=== PATIENT | female | born 1985 | race Caucasian/White ===

== ENCOUNTER 2016-06-19 13:06 | Emergency (ER) | payer MEDICAID, OTHER ==
[~2016-06-19] VITALS: Ht 172.7 cm; Wt 111.1 kg
[~2016-06-19 13:06] MED LIST: ALPR.5T PO; AMIT25TA9 PO; BPR100T PO; BUPR100T15 PO; CETI10CA PO; CITA10TA12 PO; DIAZ5TAB PO; FLUT1DIS28 IH; METF500T4 PO; MONT10TA21 PO; PANT40SU PO; PRO AIR; QUET50TA49 PO; RT-ALBUINH IH
[2016-06-19] MEDS ORDERED: TRIM/SULFAMETH 160/800 (SEPTRA DS) TAB PO ONE (13:30)
[2016-06-19] MEDS ORDERED: HYDROcodone/APAP 5 MG/325 MG (LORTAB) TAB PO ONE (13:30)
[2016-06-19] MEDS ORDERED: LIDOCAINE 2% 20 ML (XYLOCAINE) VIAL INJ ONE (13:30)
--- NOTE | 2016-06-19 13:30 | ED Lower Extremity ---
General Stated Complaint: RIGHT BIG TOE INFECTED Source: patient Exam Limitations: no limitations History of Present Illness Time seen by provider: 13:29 Initial Comments To ER with right great toe redness swelling and pain for the past 4 weeks. She saw her primary care provider at [facility] who started her on cephalexin which she finished 3 days ago. Still no improvement in the toe pain and redness. Onset: other Severity: moderate Method of Injury: unknown Modifying Factors: Worse With Movement Allergies and Home Medications Allergies Coded Allergies: Penicillins (Unverified Allergy, Unknown, 09/28/11) Home Medications (Reported) Albuterol Sulfate 6.7 Gm Hfa.aer.ad 6.7 GM IH (Reported) Alprazolam 0.5 Mg Tablet 1 TAB PO PRN (Reported) Amitriptyline HCl 25 Mg Tablet 25 MG PO HS (Reported) Bupropion HCl 100 Mg Tablet 100 MG PO DAILY (Reported) Bupropion Hcl 100 Mg Tab 150 MG PO BID (Reported) Cetirizine HCl 10 Mg Capsule 10 MG PO (Reported) Citalopram Hydrobromide 10 Mg Tablet 10 MG PO HS (Reported) Diazepam 5 Mg Tablet 5 MG PO (Reported) Fluticasone/Salmeterol 1 Each Blst.w.dev 1 EACH IH (Reported) Metformin HCl 500 Mg Tablet 500 MG PO (Reported) Montelukast Sodium 10 Mg Tablet 10 MG PO (Reported) Pantoprazole Sodium 40 Mg Granpkt.dr 40 MG PO DAILY (Reported) Quetiapine Fumarate 50 Mg Tab.er.24h 50 MG PO HS (Reported) Constitutional: see HPINo chills, No fever EENTM: see HPI Respiratory: no symptoms reported Cardiovascular: no symptoms reported Genitourinary: no symptoms reported Musculoskeletal: no symptoms reported Skin: see HPI Psychiatric/Neurological: No Symptoms Reported Past Ykhnnyi-Benhar-Qeonyh Hx Patient Social History Recent Foreign Travel: No Contact w/Someone Who Travel: No Surgeries HX Surgeries: Yes Surgeries: Gallbladder, Orthopedic Respiratory Hx Respiratory Disorders: Yes Respiratory Disorders: Asthma Cardiovascular Hx Cardiac Disorders: Yes Cardiac Disorders: Heart Murmur Genitourinary Hx Genitourinary Disorders: No Gastrointestinal Hx Gastrointestinal Disorders: Yes Gastrointestinal Disorders: Gastroesophageal Reflux, Irritable Bowel Endocrine Hx Endocrine Disorders: Yes Endocrine Disorders: Diabetes, Non-Insulin dep Psychosocial Hx Psychiatric Problems: Yes Behavioral Health Disorders: Anxiety, Depression Family Medical History Significant Family History: No Pertinent Family Hx Physical Exam Vital Signs Vital Sign - Last 12Hours 06/19/16 13:25 Temp 98.3 Pulse 74 Resp 16 B/P 124/84 Pulse Ox 98 O2 Delivery Room Air Capillary Refill : General Appearance: WD/WN no apparent distress HEENT: PERRL/EOMI normal ENT inspection Neck: non-tender full range of motion Respiratory: no respiratory distress no accessory muscle use Gastrointestinal: non tender soft Hips: bilateral hip non-tender, bilateral hip normal inspection, bilateral hip normal range of motion Legs: bilateral leg non-tender, bilateral leg normal inspection, bilateral leg normal range of motion Knees: bilateral knee non-tender, bilateral knee normal inspection, bilateral knee normal range of motion Ankles: bilateral ankle non-tender, bilateral ankle normal inspection, bilateral ankle normal range of motion Feet: right foot pain, right foot soft tissue tenderness, right foot other ( swelling and erythema to the lateral aspect of the great toe) Neurologic/Tendon: normal sensation normal motor functions Neurologic/Psychiatric: alert normal mood/affect oriented x 3 Skin: normal color warm/dry Progress Toenail removal. The right great toe was cleaned with alcohol swab and a digital block using 4 mL of 2 percent plain lidocaine without epinephrine. The toe was then scrubbed with Betadine. Blunt needle drivers were then inserted under the lateral aspect of the nail plate all the way back to the nail matrix. The lateral nail edge was lifted from the paronychium . This was then trimmed removing the lateral third of the great toenail. Silver nitrate was then used to cauterize the bleeding paronychium and nail matrix. This was then covered with nonadherent gauze dressing. Progress/Results/Core Measures Results/Orders My Orders Orders-MARY JOYCE APRN Wound Culture (06/19/16 13:28) Sulfamethoxazole/Trimet Ds Tab (Bactrim (06/19/16 13:30) Hydrocodone/Apap 5/325 Tablet (Lortab 5 (06/19/16 13:30) Lidocaine 2% Injection 20 Ml (Xylocaine (06/19/16 13:30) Medications Given in ED Current Medications Medications Dose Ordered Sig/Jered Route Start Time Stop Time Status Last Admin Dose Admin Acetaminophen/ Hydrocodone Bitart 1 tab ONCE ONCE PO 06/19/16 13:30 06/19/16 13:31 DC 06/19/16 13:37 1 TAB Lidocaine HCl 2 ml ONCE ONCE INJ 06/19/16 13:30 06/19/16 13:31 DC 06/19/16 13:37 2 ML Trimethoprim/ Sulfamethoxazole 1 ea ONCE ONCE PO 06/19/16 13:30 06/19/16 13:31 DC 06/19/16 13:36 1 EA Vital Signs/I&O Vital Sign - Last 12Hours 06/19/16 13:25 Temp 98.3 Pulse 74 Resp 16 B/P 124/84 Pulse Ox 98 O2 Delivery Room Air Departure Impression Impression: Primary Impression: Ingrown toenail Disposition: HOME, SELF-CARE Condition: Stable Departure-Patient Inst. Decision time for Depature: 13:56 Referrals: [facility] (PCP/Family) Primary Care Physician Patient Instructions: Ingrown Toenail Removal, Ingrown Toenail (DC) Add. Discharge Instructions: 1. Keep foot elevated for the rest of today. Do not get it wet tonight in the shower. Starting tomorrow you should remove this dressing and change the dressing daily for the next 3 days. You may shower and let water run over this starting tomorrow. Then, thoroughly dry it and reapply the Band-Aid 2. Antibiotics and pain pills as directed Scripts Hydrocodone/Acetaminophen (Erie 5-325 Tablet)1 Each Tablet1 Each PO Q6H PRN PAIN #10 TAB Prov:MARY JOYCE APRN 06/19/16 Sulfamethoxazole/Trimethoprim (Bactrim Ds Tablet)1 Each Tablet1 Each PO BID #10 TAB Prov:MARY JOYCE APRN 06/19/16 MARY JOYCE APRN Jun 19, 2016 13:30
[2016-06-19] MEDS ORDERED: SULF1TAB35 PO (13:58)
[2016-06-19] MEDS ORDERED: HYDR-757 PO (13:58)
[2016-06-19 14:05] VITALS: BP 124/84
== END 2016-06-19 14:05 | disposition home or self-care (01) ==
LOC: EDUNIT# 13:06 → ER 13:08
DX: L60.0 Ingrowing nail (principal); E11.9 Type 2 diabetes mellitus without complications; Z79.899 Other long term (current) drug therapy; Z79.84 Long term (current) use of oral hypoglycemic drugs
CPT/HCPCS: 87070; 87077; 87186; 87205; 99283

== ENCOUNTER 2016-07-05 06:00 | Outpatient (CLI) | payer SELFPAY ==
[~2016-07-05] VITALS: Ht 172.7 cm; Wt 111.1 kg
[~2016-07-05 06:00] MED LIST changes: +HYDR-757 PO; +SULF1TAB35 PO
[2016-07-05] MEDS ORDERED: BUPR300T51 PO (15:02)
[2016-07-05] MEDS ORDERED: RT-ALBUINH IH (15:02)
[2016-07-05] MEDS ORDERED: BISA5TAB49 PO (15:03)
[2016-07-05] MEDS ORDERED: OMEP20CA12 PO (15:03)
[2016-07-05] MEDS ORDERED: MELO7.5T46 PO (15:03)
[2016-07-05] MEDS ORDERED: SERT100T PO (15:03)
[2016-07-05] MEDS ORDERED: DOCU100T7 PO (15:03)
[2016-07-05] MEDS ORDERED: FLUT9.9S NS (15:03)
== END 2016-07-05 15:06 ==
LOC: PREOP 06:00
PROVIDERS: ATTEND Surgery
DX: Z01.818 Encounter for other preprocedural examination (principal); K92.1 Melena; K21.9 Gastro-esophageal reflux disease without esophagitis

== ENCOUNTER 2016-07-10 07:26 | Day surgery (SDC) | payer OTHER ==
[~2016-07-10] VITALS: Ht 172.7 cm; Wt 111.1 kg
[~2016-07-10 07:26] MED LIST changes: +BISA5TAB49 PO; +BUPR300T51 PO; +DOCU100T7 PO; +FLUT9.9S NS; +MELO7.5T46 PO; +OMEP20CA12 PO; +SERT100T PO
[2016-07-10] MEDS ORDERED: NS IV 1000 ML 1,000 ML IV STA (07:32)
[2016-07-10] MEDS ORDERED: NS IV 1000 ML 1,000 ML ONE (07:38)
[2016-07-10] MEDS ORDERED: HURRICAINE EXT TUBE (BENZOCAINE) XX PRN (07:45)
[2016-07-10 07:48] VITALS: BP 123/74
--- NOTE | 2016-07-10 07:59 | Progress Note-Pre Operative ---
Pre-Operative Progress Note H&P Reviewed The H&P was reviewed, patient examined and no changes noted. Date H&P Reviewed: Jul 10, 2016 Time H&P Reviewed: 07:58 Pre-Operative Diagnosis: blood per rectum, anal fissure, gerd MARLEEN MARTINEZ DO Jul 10, 2016 7:59 am
[2016-07-10] MEDS ORDERED: MIDAZOLAM 2 MG/2 ML (VERSED) VIAL ONE ×2 (08:24)
[2016-07-10] MEDS ORDERED: proPOfol 200 MG/20 ML (DIPRIVAN) VIAL IV ONE ×2 (08:24→08:59)
--- NOTE | 2016-07-10 09:22 | Progress Note-Post Operative ---
Post-Operative Progess Note Pre-Operative Diagnosis blood per rectum, anal fissure, gerd Post-Operative Diagnosis gastritis, small hiatal hernia, normal colon Post-Op Procedure Note Date of Procedure: Jul 10, 2016 Name of Procedure: egd c biopsy, colonoscopy Procedure Note/Findings see note Anesthesia Type per supervisor ditching Estimated blood loss (mL): none Specimen(s) collected antrum MARLEEN MARTINEZ DO Jul 10, 2016 9:21 am
[2016-07-10 09:25] VITALS: BP 136/78
--- NOTE | 2016-07-10 09:28 | Discharge Inst-Simple/Standard ---
Discharge Inst-Standard Patient Instructions/Follow Up Plan of Care/Instructions/FU: 2 weeks Activity as Tolerated: Yes Discharge Diet: Regular Diet (high fiber) MARLEEN MARTINEZ DO Jul 10, 2016 9:28 am
[2016-07-10 10:00] VITALS: BP 108/59
[2016-07-10 10:33] VITALS: BP 108/59
--- NOTE | 2016-07-10 10:40 | PROCEDURE REPORT ---
PROCEDURE PHYSICIAN: MARLEEN MARTINEZ DATE OF PROCEDURE: 07/10/2016 PREOPERATIVE DIAGNOSIS: 1. Blood per rectum. 2. Anal fissure. 3. GERD. POSTOPERATIVE DIAGNOSES: 1. Gastritis. 2. Small hiatal hernia. 3. Normal colon. PROCEDURE: 1. EGD with biopsy. 2. Colonoscopy. SURGEON: Naazrio. ANESTHESIA: Per UROLOGY SURGEON. ESTIMATED BLOOD LOSS: None. COMPLICATIONS: None. INDICATIONS: The patient is a 31- year-old female who has had some blood per rectum. She was diagnosed with anal fissure and she has been having gastroesophageal reflux disease. She understands the risks and benefits of procedures and wished to proceed with the procedure. Consent was signed on the chart. The patient was taken to the endoscopy suite. She was placed in left lateral recumbent position. Timeout was performed. The scope was inserted into the mouth, down the esophagus, stomach and into the duodenum without difficulty. There were no polyps, masses, ulcerations within the duodenum. The scope was slowly retracted back into the stomach where it was further insufflated. There were some slight erythematous changes in the antrum which biopsy of the antrum was obtained. There were no polyps, masses, ulcerations. The scope was continuously retracted back and also retroflexed noting a small hiatal hernia. There were no other polyps, masses or ulcerations. The scope was returned to its normal position slowly withdrawn into the esophagus, where there were no polyps, masses, ulcerations or erythematous changes. The scope was slowly retracted until completely removed noting no other pathology. COLONOSCOPY: Digital rectal exam was performed. The anal fissure appears to be healed. There were no palpable polyps, masses, ulcerations. The scope was inserted in the rectum and advanced all of the way to the cecum with minimal difficulty. Prep was adequate. The terminal ileum was intubated. There is no pathology noted in the ileum. The scope was retracted back into the colon there were no polyps, masses ulcers in the cecum, and the scope was then continued be slowly retracted back. There were no polyps, masses or ulcerations within the ascending, transverse, descending and sigmoid colon. In the rectum, the scope was also retroflexed noting no further pathology. The scope was returned to its normal position slowly withdrawn until completely removed. The patient tolerated the procedure well without any complications. She was taken to recovery room in stable condition. RECOMMENDATIONS: The patient is to continue on Protonix at this time. She will need a repeat colonoscopy per routine screening guidelines. If she has any problems prior to that, she should be reevaluated at that time. We will have her follow-up in 2 weeks. Job ID: [id number] Dictated Date: 07/10/2016 09:32:26 Sound Editor Date: 07/10/2016 10:28:57 / karina
== END 2016-07-10 10:15 | disposition home or self-care (01) ==
LOC: ENDO 07:26
PROVIDERS: ATTEND Surgery
DX: K62.5 Hemorrhage of anus and rectum (principal); K29.70 Gastritis, unspecified, without bleeding; K44.9 Diaphragmatic hernia without obstruction or gangrene
CPT/HCPCS: 84703; 88305

== ENCOUNTER 2016-07-18 12:48 | Emergency (ER) | payer OTHER ==
[~2016-07-18] VITALS: Ht 172.7 cm; Wt 111.1 kg
--- NOTE | 2016-07-18 13:11 | ED EENT ---
History of Present Illness General Chief Complaint: Ear Problems Stated Complaint: EARACHE Nursing Triage Note: C/O R EARACHE FOR 4 DAYS Source: patient Exam Limitations: no limitations History of Present Illness Time seen by provider: 13:09 Initial Comments 31-year-old female patient presents to the emergency Department with reports of right ear pain for 4 days. Denies ear drainage or changes in hearing. Also states she has been diagnosed of right great toe cellulitis on 06/19 by Johnnie Mclean. States Continues to be mildly red and swollen. is concerned that she continues to have cellulitis of the toe. Denies following up with her primary care physician for recheck of the right great toe or contacting them for the right ear pain. Timing/Duration: other (4 day onset of ear pain. 1 mo onset of rt great toe pain swelling and redness.) Location: ear (R), other (rt great toe) Prearrival Treatment: over the counter meds, prescription meds Modifying Factors: Worse With Other (worse with palpation) Allergies and Home Medications Allergies Coded Allergies: Penicillins (Unverified Allergy, Unknown, 09/28/11) Home Medications Albuterol Sulfate 1 Puff Puff, 2 PUFF IH Q4H PRN for SHORTNESS OF BREATH, ( Reported) Amitriptyline HCl 25 Mg Tablet, 25 MG PO HS, (Reported) Bisacodyl 5 Mg Tablet, 5 MG PO DAILY, (Reported) Bupropion HCl 300 Mg Tab.er.24h, 300 MG PO DAILY, (Reported) Cetirizine HCl 10 Mg Capsule, 10 MG PO HS, (Reported) Docusate Sodium 100 Mg Tablet, 100 MG PO BID, (Reported) Fluticasone Propionate 9.9 Ml Carlton.susp, 1 SPRAY NS BID, (Reported) Montelukast Sodium 10 Mg Tablet, 10 MG PO DAILY, (Reported) Naproxen 500 Mg Tablet, 500 MG PO BID PRN for PAIN, #20 Ref 0 Prescribed by: EARLINE VENTURA on 07/18/161713 Pantoprazole Sodium 40 Mg Granpkt.dr, 40 MG PO DAILY, (Reported) Sertraline HCl 100 Mg Tablet, 100 MG PO DAILY, (Reported) Sulfamethoxazole/Trimethoprim 1 Each Tablet, 1 EACH PO BID, #14 Ref 0 Prescribed by: EARLINE VENTURA on 07/18/161713 Tramadol HCl 50 Mg Tablet, 50 MG PO Q4H PRN for PAIN, #10 Ref 0 Prescribed by: EARLINE VENTURA on 07/18/16 1723 Review of Systems Constitutional: No chills, No diaphoresis, No dizziness, No fever, No malaise Eyes: No Symptoms Reported Ears: See HPI, Denies Dizziness, Pain, Denies Tinnitus, Denies Bloody Discharge , Denies Clear Discharge, Denies Purulent Discharge, Denies Serosanguinous Discharge Nose: denies congestion, denies epistaxis, denies pain, denies bloody discharge , denies purulent discharge, denies serosanguinous discharge Mouth: denies loose teeth, denies pain, denies swelling Throat: denies pain, denies swelling, denies discharge, denies neck stiffness, denies hoarse, denies aphonia, denies muffled, denies painful swallowing, denies difficulty with fluids Respiratory: no symptoms reported Cardiovascular: no symptoms reported Gastrointestinal: no symptoms reported Musculoskeletal: see HPI, joint pain, joint swelling Skin: see HPI, change in color (erythema right great toe) Neurological: Denies Headache, Denies Numbness, Denies Paresthesia, Denies Tingling, Denies Weakness All Other Systems Reviewed Negative Unless Noted: Yes (Negative excepted noted.) Past Fkfuwhr-Zsgkal-Sxfhdk Hx Patient Social History Alcohol Use: Denies Use Recreational Drug Use: No Smoking Status: Never a Smoker 2nd Hand Smoke Exposure: No Recent Foreign Travel: No Contact w/Someone Who Travel: No Recent Infectious Disease Expo: No Recent Hopitalizations: No Immunizations Up To Date Date of Influenza Vaccine: Feb 05, 2016 Seasonal Allergies Seasonal Allergies: Yes Surgeries HX Surgeries: Yes (R rotator cuff ) Surgeries: Gallbladder, Orthopedic Respiratory Hx Respiratory Disorders: Yes Respiratory Disorders: Asthma Cardiovascular Hx Cardiac Disorders: Yes (tachycardia) Cardiac Disorders: Heart Murmur Neurological Hx Neurological Disorders: No Genitourinary Hx Genitourinary Disorders: No Gastrointestinal Hx Gastrointestinal Disorders: Yes Gastrointestinal Disorders: Gastroesophageal Reflux, Chronic Constipation, Irritable Bowel Musculoskeletal Hx Musculoskeletal Disorders: No Endocrine Hx Endocrine Disorders: No Endocrine Disorders: Diabetes, Non-Insulin dep HEENT HX ENT Disorders: No Cancer Hx Cancer: No Psychosocial Hx Psychiatric Problems: Yes Behavioral Health Disorders: Anxiety, Depression Integumentary HX Skin/Integumentary Disorder: No Blood Transfusions Hx Blood Disorders: No Reviewed Nursing Assessment Reviewed/Agree w Nursing PMH: Yes Family Medical History Significant Family History: No Pertinent Family Hx Physical Exam Vital Signs General Appearance: WD/WN, no apparent distress Eyes: bilateral eye EOMI, bilateral eye PERRL, bilateral eye normal inspection Ears: right ear other (tenderness and mild swelling of the right parotid gland. no evidence of erythema or warmth.), bilateral ear TM normal, bilateral ear auricle normal, bilateral ear canal normal Nose: normal inspection Mouth/Throat: normal mouth inspection, pharynx normal Neck: non-tender, full range of motion, supple, normal inspection Cardiovascular: normal peripheral pulses, regular rate, rhythm, no murmur Respiratory: lungs clear, normal breath sounds, no respiratory distress Gastrointestinal: non tender, soft, No distended Neurologic/Psychiatric: alert, normal mood/affect, oriented x 3 Skin: warm/dry, No cyanosis, No cool, No diaphoresis, No mottled, other (mild erythema wand warmth of the rt great toe w/o open wound or drainage. ) Progress/Results/Core Measures Results/Orders Lab Results Micro Results My Orders Vital Signs/I&O Blood Pressure Mean: 97 Departure Communication Progress Notes Patient seen and evaluated. Labs drawn for mumps and sent to the [facility] lab for testing. Patient started on bactrim DS for cellulitis of the rt great toe. Impression Impression: Primary Impression: Parotitis, acute Additional Impression: Cellulitis of toe Qualified Codes: L03.031 - Cellulitis of right toe Disposition: 01 HOME, SELF-CARE Condition: Improved Departure-Patient Inst. Decision time for Depature: 17:13 Referrals: [facility] (PCP/Family) Primary Care Physician Patient Instructions: Cellulitis (Skin Infection), Adult (DC), Mumps (DC) Add. Discharge Instructions: All discharge instructions reviewed with patient and/or family. Voiced understanding. Medications as instructed. Tylenol extra strength [id number] as directed for pain. Ice packs or heating pads as needed for pain. Lemon drops or sour candy. Drink plenty of fluids. Elevate the right foot on pillows. Follow-up with family practitioner for recheck as an outpatient in the next 5-7 days. Call tomorrow morning for appointment time. Quarantine yourself until you hear from the state or health department about your results on the mumps testing. Return to the emergency department for worsened pain, swelling, redness, drainage, fever, dizziness, headache, changes in behavior, shortness of air, chest pain, seizure, vomiting, decreased urination, or any other concerns. Scripts Tramadol HCl (Tramadol HCl) 50 Mg Tablet 50 MG PO Q4H Y for PAIN, #10 TAB 0 Refills Prov: EARLINE VENTURA 07/18/16 Naproxen (Naprosyn) 500 Mg Tablet 500 MG PO BID Y for PAIN, #20 TAB 0 Refills Prov: EARLINE VENTURA 07/18/16 Sulfamethoxazole/Trimethoprim (Bactrim Ds Tablet) 1 Each Tablet 1 EACH PO BID, #14 TAB 0 Refills Prov: EARLINE VENTURA 07/18/16 EARLINE VENTURA Jul 18, 2016 13:11
[2016-07-18] MEDS ORDERED: SULF1TAB35 PO (17:14)
[2016-07-18] MEDS ORDERED: NAPR500T PO (17:14)
[2016-07-18] MEDS ORDERED: TRAM50TA2 PO (17:23)
[2016-07-18 17:30] VITALS: BP 119/77
--- NOTE | 2016-08-01 07:18 | Physician Query ---
PQ-Conflicting Diagnosis Admission/Discharge Admission Date: Discharge Date: The medical record reflects the following clinical scenario: History/Risk Factors: Diabetes Clinical Findings: Earache Treatment: Tramadol Question: Do you agree with the impression of cellulitis of toe? Please document a response below. PHYSICIAN RESPONSE Do you agree w/Consulting Dx?: Yes Explanation of clincal finding patient c/o rt ear pain as well as rt great toe swelling and erythema. Patient had previously been treated for cellulitis of the right great toe one month prior to visit. On exam patient did exhibit exam findings consistent with rt great toe cellulitis. Patient was given a Rx for bactrim DS. Please remember a lack of response to the above will prompt a phone page by [facility]/ coding staff. In responding to this query, please exercise your independent professional judgment. The purpose of this communication is to more accurately reflect the complexity of your patients condition. The fact that a question is asked does not imply that any particular answer is desired or expected. Thank you for your timely response to this clarification. Requestors name: Felecia THIS PHYSICIAN QUERY FORM IS A PERMANENT PART OF THE MEDICAL RECORD FELECIA FERNÁNDEZ Aug 01, 2016 07:18 EARLINE VENTURA Aug 07, 2016 15:00
--- OUTSIDE RECORDS SUMMARY | 2016-08-12 04:39 | XMS REPORT ---
Author Author JACK CASTRO [facility] Address [address] [place] [address] Care Team Providers Care Residential Sales Name Role Phone JACK CASTRO Unavailable PROBLEMS Type Condition ICD9-CM Code LME46-XH Code Onset Dates Condition Status SNOMED Code Assessment Encounter for immunization Z23 Dec, Active 028222172 Assessment Bronchiolitis J21.9 21 Dec, 2015 Active 4787816 Problem Candidiasis of skin B37.2 Active 55027942 Problem Encounter for surveillance of injectable contraceptive Z30.42 Active 67118687 Problem Vaginal yeast infection B37.3 Active 27984835 Problem Fatigue, unspecified type R53.83 Active 59601367 Problem Palpitations R00.2 Active 34019417 Problem History of abnormal cervical Pap smear Z87.898 Active 144217355 Problem 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 625067545 Problem Bronchiolitis J21.9 Active 1206937 Problem Acute mucoid otitis media of left ear H65.112 Active 81491241 Problem Fatigue R53.83 Active 31272744 Problem Palpitation R00.2 Active 72799367 Problem Mild persistent asthma without complication J45.30 Active 057398678 Problem Yeast infection B37.9 Active 6541652 Problem Routine gynecological examination Z01.419 Active 784891587 Problem Chronic eustachian tube dysfunction, bilateral H69.83 Active 86568508 Problem Constipation due to slow transit K59.01 Active 22244144 Problem Prediabetes R73.09 Active 0837550 Problem Elevated blood pressure I10 Active 31068639 Problem GERD (gastroesophageal reflux disease) K21.9 Active 071395110 Problem Sensation of feeling hot R68.89 Active 377961770 Problem Chronic eczematoid otitis externa of both ears H60.8X3 Active 08378692 Problem Otalgia of both ears H92.03 Active 498921500 Problem Asthma J45.909 Active 415150436 Problem Bruising T14.8 Active 720518857 ALLERGIES Substance Reaction Event Type Date Status Penicillin V Potassium Unknown Drug Allergy Dec, Active Bandaids burning Non Drug Allergy Dec, Active SOCIAL HISTORY No smoking Hx information available PLAN OF CARE VITAL SIGNS Height 68 in 2016-01-11 Weight 242 lbs 2016-01-11 Heart Rate 76 bpm 2016-01-11 Respiratory Rate 18 2016-01-11 BMI 36.79 kg/m2 2016-01-11 Blood pressure systolic 104 mmHg 2016-01-11 Blood pressure diastolic 68 mmHg 2016-01-11 MEDICATIONS Medication Instructions Dosage Frequency Start Date End Date Duration Status Nebulizer Compressor as directed Mar, Active Albuterol 90 mcg/actuation 2 puffs by Inhalation route every 4-6 hours for 7 days Active Zofran ODT 4 MG Orally every 8 hrs prn 1 tablet on the tongue and allow to dissolve Nov, 03 days Active Lancets Micro Thin 33G as directed Sep, Active Doxycycline Hyclate 100 MG Orally every 12 hrs 1 capsule 12h Dec, Jan, 14 days Active Wellbutrin XL 300 MG Orally Once a day 1 tablet in the morning 24h Active Hydrocortisone-Acetic Acid 1-2 % Otic Three times a day 5 drops into both ears 8h Jul, Jul, 7 days Active ZyrTEC 10 mg oral Once a day take 1 tablet (10 mg) by oral route once daily 24h Active Toprol XL 25 MG Orally Once a day 1 tablet 24h 90 days Active PredniSONE 10 mg Orally twice a day 1 tablet 12h Dec, Dec, 07 days Active Albuterol Sulfate 0.63 mg/3 mL 3 mL by Inhalation route every 4 hours PRN cough or wheeze Jan, Active Klonopin 0.5 MG Orally Twice a day 1 tablet 12h Active Celexa 10 mg take 1 tablet (10 mg) by oral route once daily Feb, Active Pamelor 25 mg TAKE ONE CAPSULE BY MOUTH TWICE A DAY. Feb, Active Advair Diskus 250-50 MCG/DOSE Inhalation Twice a day 1 puff 12h Active Amitriptyline HCl 25 TAKE 1 TABLET BY MOUTH DAILY 30 Active Protonix 40 MG Orally Once a day 1 tablet 24h Active ProAir HFA 90 mcg/actuation inhale 2 puffs by Inhalation route every 4-6 hours as needed PRN shortness of breath/cough Feb, Active Courtney Contour Test - USE TO TEST BLOOD SUGARS ONCE DAILY DIRECTED 30 Active Flonase 50 mcg/actuation Nasally Once a day 1 sprays by Nasal route 2 times per day in each nostril 24h Active Singulair 10 MG Orally Once a day 1 tablet by Oral route 1 time per day 24h 06 May, 2014 Active On[employer] Images Contour Test Test Strips In Vitro Once a day as directed 24h 15 Jun, 2015 Active Diflucan 150 MG Orally Once a day 1 tablet 24h Dec, Dec, 1 dose Active RESULTS No Results PROCEDURES Procedure Date Ordered Related Diagnosis Body Site Office Visit, Est Pt., Level 4 Jan 11, 2016 FLUARIX QUAD P-FREE 3 AND UP .50 2015Jan 11, 2016 SINGLE IMMUNIZATION ADMIN Jan 11, 2016 IMMUNIZATIONS Vaccine Route Administration Date Status FLUARIX QUAD P-FREE 3 AND UP .50 2015 IM Intramuscular Jan 11, 2016 Administered
--- OUTSIDE RECORDS SUMMARY | 2016-08-12 04:39 | XMS REPORT ---
Author Author JACK CASTRO [facility] eClinicalWorks Address Unknown Phone Unavailable Care Team Providers Care Cutting And Creasing Press Operator Name Role Phone JACK CASTRO Unavailable Allergies, Adverse Reactions, Alerts Substance Reaction Event Type Penicillin V Potassium Info Not Available Drug Allergy Bandaids burning Non Drug Allergy Problems Problem Type Condition Code Onset Dates Condition Status Assessment Encounter for Depo-Provera contraception Z30.42 Active Assessment Prediabetes R73.09 Active Assessment Acute upper respiratory infection, unspecified J06.9 Active Assessment Allergic rhinitis, unspecified allergic rhinitis trigger, unspecified rhinitis seasonality J30.9 Active Problem Candidiasis of skin B37.2 Active Problem Encounter for surveillance of injectable contraceptive Z30.42 Active Problem Vaginal yeast infection B37.3 Active Problem Fatigue, unspecified type R53.83 Active Problem Palpitations R00.2 Active Problem History of abnormal cervical Pap smear Z87.898 Active Problem 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 Problem Bronchiolitis J21.9 Active Problem Acute mucoid otitis media of left ear H65.112 Active Problem Fatigue R53.83 Active Problem Palpitation R00.2 Active Problem Allergic rhinitis, unspecified allergic rhinitis trigger, unspecified rhinitis seasonality J30.9 Active Problem Mild persistent asthma without complication J45.30 Active Problem Yeast infection B37.9 Active Problem Routine gynecological examination Z01.419 Active Problem Chronic eustachian tube dysfunction, bilateral H69.83 Active Problem Constipation due to slow transit K59.01 Active Problem Prediabetes R73.09 Active Problem Elevated blood pressure I10 Active Problem GERD (gastroesophageal reflux disease) K21.9 Active Problem Sensation of feeling hot R68.89 Active Problem Chronic eczematoid otitis externa of both ears H60.8X3 Active Problem Otalgia of both ears H92.03 Active Problem Asthma J45.909 Active Problem Bruising T14.8 Active Medications Medication Code System Code Instructions Start Date End Date Status Dosage Flonase NDC 0 50 mcg/actuation Nasally Once a day 1 sprays by Nasal route 2 times per day in each nostril ZyrTEC ND 0 10 mg oral Once a day take 1 tablet (10 mg) by oral route once daily Courtney Contour Test ND 0 Test Strips In Vitro Once a day July 05, 2015 as directed Celexa [facility] [address]-87 10 mg Mar 10, 2014 take 1 tablet (10 mg) by oral route once daily Wellbutrin XL [facility] [address]-29 300 MG Orally Once a day 1 tablet in the morning Test strips NDC 0 Test Strips PRN Feb 14, 2016 as directed Nebulizer Compressor [facility] [address]157 Apr 13, 2015 as directed PredniSONE [facility] [address]-10 20 mg Orally Once a day Feb 14, 2016 Feb 19, 2016 1 tablet Amitriptyline HCl [facility] 41374856352 25 TAKE 1 TABLET BY MOUTH DAILY Klonopin [facility] [address]-80 0.5 MG Orally Twice a day 1 tablet Glucometer ND 0 Feb 14, 2016 as directed Toprol XL [facility] [address]-64 25 MG Orally Once a day 1 tablet Courtney Contour Test [facility] [id number] 0 TEST ONCE DAILY Advair Diskus [facility] [address]-60 250-50 MCG/DOSE Inhalation Twice a day 1 puff Singulair [facility] [address]-15 10 MG Orally Once a day May 28, 2014 1 tablet by Oral route 1 time per day Zofran ODT [facility] [address]-34 4 MG Orally every 8 hrs prn Nov 22, 2015 1 tablet on the tongue and allow to dissolve Protonix [facility] [address]-32 40 MG Orally Once a day 1 tablet Lancets Micro Thin 33G [facility] 168[address]-79974 September 23, 2014 as directed ProAir HFA [facility] [address]-49 90 mcg/actuation Mar 10, 2014 inhale 2 puffs by Inhalation route every 4-6 hours as needed PRN shortness of breath/ cough Albuterol Sulfate [facility] [address]-20 0.63 mg/3 mL Feb 08, 2014 3 mL by Inhalation route every 4 hours PRN cough or wheeze Procedures Procedure Coding System Code Date DEPO PROVERA (150 MG/ML) CPT-4 J1050 Feb 14, 2016 THER/PROPH/DIAG INJ, SC/IM CPT-4 51979 Feb 14, 2016 Office Visit, Est Pt., Level 4 CPT-4 40033 Feb 14, 2016 URINE TEST CPT-4 10948 Feb 14, 2016 Vital Signs Date/Time: Feb 14, 2016 Cardiac Monitoring Heart Rate 90 bpm Weight 239 lbs Height 68 in BMI 36.34 Index Blood Pressure Diastolic 80 mmHg Blood Pressure Systolic 120 mmHg Results No Known Results Summary Purpose eClinicalWorks Submission
--- OUTSIDE RECORDS SUMMARY | 2016-08-12 04:39 | XMS REPORT ---
Author Author JACK CASTRO [facility] eClinicalWorks Address Unknown Phone Unavailable Care Team Providers Care Identification Officer Name Role Phone JACK CASTRO CP Unavailable Allergies No Known Allergies Problems Problem Type Condition Code Onset Dates Condition Status Problem Palpitation R00.2 Active Problem GERD (gastroesophageal reflux disease) K21.9 Active Problem Fatigue R53.83 Active Problem Chronic eczematoid otitis externa of both ears H60.8X3 Active Problem Bruising T14.8 Active Problem Otalgia of both ears H92.03 Active Problem Prediabetes R73.09 Active Problem Sensation of feeling hot R68.89 Active Problem Asthma J45.909 Active Problem Elevated blood pressure I10 Active Assessment Acute cystitis without hematuria N30.00 Active Problem Encounter for surveillance of injectable contraceptive Z30.42 Active Problem Fatigue, unspecified type R53.83 Active Problem Mild persistent asthma without complication J45.30 Active Medications No Known Medications Procedures Procedure Coding System Code Date [facility] C[facility] NOBLL Dec 01, 2015 URINALYSIS, AUTO, W/O SCOPE CPT-4 90500 Dec 01, 2015 Results No Known Results Summary Purpose eClinicalWorks Submission
--- OUTSIDE RECORDS SUMMARY | 2016-08-12 04:39 | XMS REPORT ---
Author Author JACK CASTRO Organization eClinicalWorks Address Unknown Phone Unavailable Care Team Providers Care Ribbon Sweatband Operator Name Role Phone JACK CASTRO CP Unavailable [...] complication J45.30 Active Medications No Known Medications Results No Known Results Summary Purpose eClinicalWorks Submission
--- OUTSIDE RECORDS SUMMARY | 2016-08-12 04:39 | XMS REPORT ---
Author Author JACK CASTRO [facility] eClinicalWorks Address Unknown Phone Unavailable Care Team Providers Care Interior Design Principal Name Role Phone JACK CASTRO Unavailable Allergies, Adverse Reactions, Alerts Substance Reaction Event Type Penicillin V Potassium Info Not Available Drug Allergy Bandaids burning Non Drug Allergy Problems Problem Type Condition Code Onset Dates Condition Status Assessment Type 2 diabetes mellitus without complication E11.9 Active Problem Mild persistent asthma with (acute) exacerbation J45.31 Active Problem Encounter for surveillance of injectable contraceptive Z30.42 Active Problem Tooth infection K04.7 Active Problem Palpitation R00.2 Active Problem Fatigue R53.83 Active Problem Type 2 diabetes mellitus without complication E11.9 Active Problem Fatigue, unspecified type R53.83 Active Problem Mild persistent asthma without complication J45.30 Active Problem Moderate persistent asthma with acute exacerbation J45.41 Active Assessment Fatigue R53.83 Active Assessment Mild persistent asthma without complication J45.30 Active Assessment Palpitation R00.2 Active Medications Medication Code System Code Instructions Start Date End Date Status Dosage Wellbutrin XL [facility] [address]-24 300 MG Orally Once a day 1 tablet in the morning Klonopin [facility] [address]-44 0.5 MG Orally Twice a day 1 tablet Nebulizer Compressor [facility] [address] Apr 13, 2015 as directed Albuterol ND 0 90 mcg/actuation PRN 2 puffs by Inhalation route every 4-6 hours for 7 days Singulair [facility] [address]-42 10 MG Orally Once a day May 28, 2014 1 tablet by Oral route 1 time per day Doxepin HCl [facility] [address]-24 10 MG Orally Once a day 1 capsule at bedtime Advair Diskus [facility] [address]-15 250-50 MCG/DOSE Inhalation Twice a day 1 puff Albuterol Sulfate [facility] [address]-26 0.63 mg/3 mL Feb 08, 2014 3 mL by Inhalation route every 4 hours PRN cough or wheeze Depo-Provera [facility] [address]-08 150 mg/mL July 05, 2014 inject 150 mg by intramuscular route every 3 months Test strips NDC 0 Jan 21, 2015 as directed ZyrTEC NDC 0 10 mg oral Once a day take 1 tablet (10 mg) by oral route once daily Courtney Contour Test NDC 0 Test Strips In Vitro Once a day Apr 13, 2015 as directed ProAir HFA [facility] [address]-18 90 mcg/actuation Mar 10, 2014 inhale 2 puffs by Inhalation route every 4-6 hours as needed PRN shortness of breath/ cough Lancets Micro Thin 33G [facility] [address]3427 September 23, 2014 as directed Flonase NDC 0 50 mcg/actuation Nasally Once a day 1 sprays by Nasal route 2 times per day in each nostril Protonix [facility] [address]-71 40 MG Orally Once a day 1 tablet Amitriptyline HCl [facility] 38065371471 25 MG Orally Once a day 1 tablet Procedures Procedure Coding System Code Date Office Visit, Est Pt., Level 4 CPT-4 66955 Apr 13, 2015 Vital Signs Date/Time: Apr 13, 2015 Temperature 98.4 F Weight 242.5 lbs Height 68 in BMI 36.87 Index Blood Pressure Diastolic 72 mmHg Blood Pressure Systolic 110 mmHg Cardiac Monitoring Heart Rate 88 bpm Results No Known Results Summary Purpose eClinicalWorks Submission
--- OUTSIDE RECORDS SUMMARY | 2016-08-12 04:39 | XMS REPORT ---
Author JUSTUS Shields [facility] eClinicalWorks Address Unknown Phone Unavailable Care Team Providers Care Mechanical Ordnance Assembler Name Role Phone JUSTUS FRIEDMAN CP Unavailable Allergies, Adverse Reactions, Alerts Substance Reaction [...] Problem Elevated blood pressure I10 Active Assessment Nausea R11.0 Active Problem Encounter for surveillance of injectable contraceptive Z30.42 Active Problem Fatigue, unspecified type R53.83 Active Assessment Acute cystitis without hematuria N30.00 Active Problem Mild persistent asthma without complication J45.30 Active Medications Medication Code System Code Instructions Start Date End Date Status Dosage Protonix [facility] [address]-86 40 MG Orally Once a day 1 tablet Lancets Micro Thin 33G [facility] [address] September 23, 2014 as directed Macrobid [facility] [address]-50 100 MG Orally every 12 hrs Nov 22, 2015Nov 1 capsule with food Klonopin [facility] [address]-96 0.5 MG Orally Twice a day 1 tablet Nebulizer Compressor [facility] [address]44[address] Apr 13, 2015 as directed Singulair [facility] [address]-71 10 MG Orally Once a day May 28, 2014 1 tablet by Oral route 1 time per day Advair Diskus [facility] [address]-47 250-50 MCG/DOSE Inhalation Twice a day 1 puff Celexa [facility] [address]-51 10 mg Mar 10, 2014 take 1 tablet (10 mg) by oral route once daily Albuterol NDC 0 90 mcg/actuation PRN 2 puffs by Inhalation route every 4-6 hours for 7 days Hydrocortisone-Acetic Acid [facility] [address]-85 1-2 % Otic Three times a day August 09, 2015 5 drops into both ears ProAir HFA [facility] [address]-75 90 mcg/actuation Mar 10, 2014 inhale 2 puffs by Inhalation route every 4-6 hours as needed PRN shortness of breath/ cough Zofran ODT [facility] [address]-35 4 MG Orally every 8 hrs prn Nov 22, 2015 1 tablet on the tongue and allow to dissolve Pantoprazole Sodium [facility] 70246004702 40 TAKE 1 TABLET BY MOUTH EVERY DAY Flonase [facility] [address]-66 50 mcg/actuation Nasally Once a day 1 sprays by Nasal route 2 times per day in each nostril Amitriptyline HCl [facility] 95613565399 25 MG Orally Once a day 1 tablet Albuterol Sulfate [facility] [address]-85 0.63 mg/3 mL Feb 08, 2014 3 mL by Inhalation route every 4 hours PRN cough or wheeze Wellbutrin XL [facility] [address]-48 300 MG Orally Once a day 1 tablet in the morning ZyrTEC NDC 0 10 mg oral Once a day take 1 tablet (10 mg) by oral route once daily Courtney Contour Test NDC 0 Test Strips In Vitro Once a day July 05, 2015 as directed Pamelor [facility] [address]-19 25 mg Mar 10, 2014 TAKE ONE CAPSULE BY MOUTH TWICE A DAY. Courtney Contour Test NDC 0 Test Strips In Vitro Once a day Apr 13, 2015 as directed Doxepin HCl [facility] [address]-48 10 MG Orally Once a day 1 capsule at bedtime Amitriptyline HCl [facility] 35094464853 25 TAKE 1 TABLET BY MOUTH EVERY DAY Procedures Procedure Coding System Code Date URINE TEST CPT-4 32694 Nov 22, 2015 URINALYSIS, AUTO, W/O SCOPE CPT-4 73290 Nov 22, 2015 Office Visit, Est Pt., Level 3 CPT-4 81967 Nov 22, 2015 [facility] NOBLL Nov 22, 2015 Vital Signs Date/Time: Nov 22, 2015 Cardiac Monitoring Heart Rate 84 bpm Weight 240.6 lbs Height 68 in BMI 36.58 Index Blood Pressure Diastolic 74 mmHg Blood Pressure Systolic 106 mmHg Results No Known Results Summary Purpose eClinicalWorks Submission
--- OUTSIDE RECORDS SUMMARY | 2016-08-12 04:39 | XMS REPORT ---
Author Author JACK CASTRO [facility] eClinicalWorks Address Unknown Phone Unavailable Care Team Providers Care Plastic Cutter Name Role Phone JACK CASTRO Unavailable Allergies, [...] Problem Elevated blood pressure I10 Active Assessment Prediabetes R73.09 Active Assessment Otalgia of both ears H92.03 Active Problem Encounter for surveillance of injectable contraceptive Z30.42 Active Assessment Bruising T14.8 Active Problem Fatigue, unspecified type R53.83 Active Assessment Chronic eczematoid otitis externa of both ears H60.8X3 Active Problem Mild persistent asthma without complication J45.30 Active Medications Medication Code System Code Instructions Start Date End Date Status Dosage Courtney Contour Test NDC 0 Test Strips In Vitro Once a day July 05, 2015 as directed ZyrTEC NDC 0 10 mg oral Once a day take 1 tablet (10 mg) by oral route once daily Albuterol NDC 0 90 mcg/actuation PRN 2 puffs by Inhalation route every 4-6 hours for 7 days Flonase NDC 0 50 mcg/actuation Nasally Once a day 1 sprays by Nasal route 2 times per day in each nostril Courtney Contour Test NDC 0 Test Strips In Vitro Once a day Apr 13, 2015 [place] [address]-30 300 MG Orally Once a day 1 tablet in the [place] [address]-13 1-2 % Otic Three times a day August 09, 2015 5 drops into both ears Singulair [facility] [address]-30 10 MG Orally Once a day May 28, 2014 1 tablet by Oral route 1 time per day Pamelor [facility] [address]-62 25 mg Mar 10, 2014 TAKE ONE CAPSULE BY MOUTH TWICE A DAY. Nebulizer Compressor [facility] 95[address]883 Apr 13, 2015 as directed Celexa [facility] [address]-79 10 mg Mar 10, 2014 take 1 tablet (10 mg) by oral route once daily Doxepin HCl [facility] [address]-60 10 MG Orally Once a day 1 capsule at bedtime Klonopin [facility] [address]-44 0.5 MG Orally Twice a day 1 tablet Advair Diskus [facility] [address]-47 250-50 MCG/DOSE Inhalation Twice a day 1 puff Amitriptyline HCl [facility] 22715915581 25 MG Orally Once a day 1 tablet Albuterol Sulfate [facility] [address]-63 0.63 mg/3 mL Feb 08, 2014 3 mL by Inhalation route every 4 hours PRN cough or wheeze Protonix [facility] [address]-72 40 MG Orally Once a day 1 tablet Lancets Micro Thin 33G [facility] 11[address]-99023 September 23, 2014 as directed ProAir HFA [facility] [address]-20 90 mcg/actuation Mar 10, 2014 inhale 2 puffs by Inhalation route every 4-6 hours as needed PRN shortness of breath/ cough Procedures Procedure Coding System Code Date Office Visit, Est Pt., Level 4 CPT-4 57118 August 09, 2015 Vital Signs Date/Time: August 09, 2015 Temperature 99.0 F Weight 248.7 lbs Height 68 in BMI 37.81 Index Blood Pressure Diastolic 78 mmHg Blood Pressure Systolic 118 mmHg Cardiac Monitoring Heart Rate 98 bpm Results No Known Results Summary Purpose eClinicalWorks Submission
--- OUTSIDE RECORDS SUMMARY | 2016-08-12 04:40 | XMS REPORT ---
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 Problem Routine gynecological examination Z01.419 Active Problem Candidiasis of skin B37.2 Active Problem Otalgia of both ears H92.03 Active Problem Palpitations R00.2 Active Problem Vaginal yeast infection B37.3 Active Problem Fatigue, unspecified type R53.83 Active Problem Mild persistent asthma without complication J45.30 Active Problem Encounter for surveillance of injectable contraceptive Z30.42 Active Problem GERD (gastroesophageal reflux disease) K21.9 Active Problem Sensation of feeling hot R68.89 Active Problem Palpitation R00.2 Active Problem Prediabetes R73.09 Active Problem Fatigue R53.83 Active Problem Elevated blood pressure I10 Active Medications Medication Code System Code Instructions Start Date End Date Status Dosage Cephalexin [facility] [address]-42 Dec 16, 2015 Dec 26, 2015 not defined Results No Known Results Summary Purpose eClinicalWorks Submission
--- OUTSIDE RECORDS SUMMARY | 2016-08-12 04:40 | XMS REPORT ---
Author MARTHA Rebolledo eClinicalWorks Address Unknown Phone Unavailable Care Team Providers Care Senior Quality Assurance Engineer Name Role Phone MARTHA BERNAL CP Unavailable Allergies, Adverse Reactions, Alerts Substance [...] Problem Elevated blood pressure I10 Active Assessment Dental examination Z01.20 Active Problem Encounter for surveillance of injectable contraceptive Z30.42 Active Problem Fatigue, unspecified type R53.83 Active Problem Mild persistent asthma without complication J45.30 Active Medications Medication Code System Code Instructions Start Date End Date Status Dosage Albuterol NDC 0 90 mcg/actuation PRN 2 puffs by Inhalation route every 4-6 hours for 7 days ZyrTEC NDC 0 10 mg oral Once a day take 1 tablet (10 mg) by oral route once daily Courtney Contour Test NDC 0 Test Strips In Vitro Once a day Apr 13, 2015 as directed Wellbutrin XL [facility] [address]-28 300 MG Orally Once a day 1 tablet in the morning Lancets Micro Thin 33G [facility] [address] September 23, 2014 as directed Amitriptyline HCl [facility] 03621906778 25 MG Orally Once a day 1 tablet Klonopin [facility] [address]-45 0.5 MG Orally Twice a day 1 tablet Advair Diskus [facility] [address]-31 250-50 MCG/DOSE Inhalation Twice a day 1 puff Pamelor [facility] [address]-33 25 mg Mar 10, 2014 TAKE ONE CAPSULE BY MOUTH TWICE A DAY. Nebulizer Compressor [facility] [address] Apr 13, 2015 as directed Protonix [facility] [address]-55 40 MG Orally Once a day 1 tablet Hydrocortisone-Acetic Acid [facility] [address]-56 1-2 % Otic Three times a day August 09, 2015 5 drops into both ears Pantoprazole Sodium [facility] 78582391927 40 TAKE 1 TABLET BY MOUTH EVERY DAY Singulair [facility] [address]-76 10 MG Orally Once a day May 28, 2014 1 tablet by Oral route 1 time per day ProAir HFA [facility] [address]-35 90 mcg/actuation Mar 10, 2014 inhale 2 puffs by Inhalation route every 4-6 hours as needed PRN shortness of breath/ cough Albuterol Sulfate [facility] [address]-05 0.63 mg/3 mL Feb 08, 2014 3 mL by Inhalation route every 4 hours PRN cough or wheeze Courtney Contour Test [facility] 0 Test Strips In Vitro Once a day July 05, 2015 as directed Celexa [facility] [address]-67 10 mg Mar 10, 2014 take 1 tablet (10 mg) by oral route once daily Flonase [facility] [address]-91 50 mcg/actuation Nasally Once a day 1 sprays by Nasal route 2 times per day in each nostril Doxepin HCl [facility] [address]-53 10 MG Orally Once a day 1 capsule at bedtime Procedures Procedure Coding System Code Date INTRAORL-PERIAPICAL 1 FILM 15889 CPT-4 D0220 November 02, 2015 Billing Notes on claim CPT-4 EC109 November 02, 2015 LTD ORAL EVALUATION - PROBLEM FOCUS CPT-4 D0140 November 02, 2015 Vital Signs Date/Time: November 02, 2015 Blood Pressure Diastolic 77 mmHg Blood Pressure Systolic 124 mmHg Height 68 in Results No Known Results Summary Purpose eClinicalWorks Submission
--- OUTSIDE RECORDS SUMMARY | 2016-08-12 04:40 | XMS REPORT ---
Author Author JACK CASTRO [facility] eClinicalWorks Address Unknown Phone Unavailable Care Team Providers Care Orthodontic Assistant Name Role Phone JACK CASTRO CP Unavailable Allergies No Known Allergies Problems Problem Type Condition Code Onset Dates Condition Status Problem Prediabetes R73.09 Active Assessment Candidiasis of skin B37.2 Active Problem Elevated blood pressure I10 Active Assessment Vaginal yeast infection B37.3 Active Problem Asthma J45.909 Active Problem Chronic eczematoid otitis externa of both ears H60.8X3 Active Problem Bruising T14.8 Active Problem History of abnormal cervical Pap smear Z87.898 Active Problem 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 Assessment History of abnormal cervical Pap smear Z87.898 Active Assessment 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 Problem Routine gynecological examination Z01.419 Active Assessment Palpitations R00.2 Active Problem Candidiasis of skin B37.2 Active Problem Otalgia of both ears H92.03 Active Problem Palpitations R00.2 Active Problem Vaginal yeast infection B37.3 Active Problem Fatigue, unspecified type R53.83 Active Problem Mild persistent asthma without complication J45.30 Active Assessment Routine gynecological examination Z01.419 Active Problem Encounter for surveillance of injectable contraceptive Z30.42 Active Problem GERD (gastroesophageal reflux disease) K21.9 Active Problem Sensation of feeling hot R68.89 Active Problem Palpitation R00.2 Active Problem Fatigue R53.83 Active Medications Medication Code System Code Instructions Start Date End Date Status Dosage Albuterol Sulfate [facility] [address]-20 0.63 mg/3 mL Feb 08, 2014 3 mL by Inhalation route every 4 hours PRN cough or wheeze Zofran ODT [facility] [address]-52 4 MG Orally every 8 hrs prn Nov 22, 2015 1 tablet on the tongue and allow to dissolve Macrobid [facility] [address]-65 100 MG Orally every 12 hrs 1 capsule with food Toprol XL [facility] [address]-29 25 MG Orally Once a day Dec 06, 2015 1 tablet Lancets Micro Thin 33G [facility] [address] September 23, 2014 as directed Flonase NDC 0 50 mcg/actuation Nasally Once a day 1 sprays by Nasal route 2 times per day in each nostril Hydrocortisone-Acetic Acid [facility] [place] [address]-45 1-2 % Otic Three times a day August 09, 2015 5 drops into both ears Amitriptyline HCl [facility] 17854964248 25 TAKE 1 TABLET BY MOUTH EVERY DAY Klonopin [facility] [place] [address]-39 0.5 MG Orally Twice a day 1 tablet Courtney Contour Test ND 0 Test Strips In Vitro Once a day July 05, 2015 as directed ProAir HFA [facility] [place] [address]-50 90 mcg/actuation Mar 10, 2014 inhale 2 puffs by Inhalation route every 4-6 hours as needed PRN shortness of breath/ cough Nebulizer Compressor [facility] [place] [address] Apr 13, 2015 as directed Protonix [facility] [address]-58 40 MG Orally Once a day 1 tablet Albuterol NDC 0 90 mcg/actuation PRN 2 puffs by Inhalation route every 4-6 hours for 7 days Pamelor [facility] [address]-57 25 mg Mar 10, 2014 TAKE ONE CAPSULE BY MOUTH TWICE A DAY. Celexa [facility] [address]-32 10 mg Mar 10, 2014 take 1 tablet (10 mg) by oral route once daily Advair Diskus [facility] [address]-13 250-50 MCG/DOSE Inhalation Twice a day 1 puff Wellbutrin XL [facility] [place] [address]-07 300 MG Orally Once a day 1 tablet in the morning Diflucan [facility] [address]-63 100 MG Orally Once a day Dec 06, 2015 Dec 16, 2015 1 tablet Pantoprazole Sodium [facility] 20769578988 40 TAKE 1 TABLET BY MOUTH EVERY DAY Singulair [facility] [address]-89 10 MG Orally Once a day May 28, 2014 1 tablet by Oral route 1 time per day ZyrTEC NDC 0 10 mg oral Once a day take 1 tablet (10 mg) by oral route once daily Procedures Procedure Coding System Code Date JODY MENESES, DNA, DIR PROBE CPT-4 42622 Dec 06, 2015 LAB NOT BILLED BY [facility] CPT-4 NOBLL Dec 06, 2015 No Charge CPT-4 21021 Dec 06, 2015 Office Visit, Est Pt., Level 5 CPT-4 84172 Dec 06, 2015 SPECIMEN HANDLING CPT-4 97952 Dec 06, 2015 Vital Signs Date/Time: Dec 06, 2015 Cardiac Monitoring Heart Rate 70 bpm Weight 242.0 lbs Height 68 in BMI 36.79 Index Blood Pressure Diastolic 70 mmHg Blood Pressure Systolic 128 mmHg Results No Known Results Summary Purpose eClinicalWorks Submission
--- OUTSIDE RECORDS SUMMARY | 2016-08-12 04:40 | XMS REPORT ---
Author Author JACK CASTRO [facility] eClinicalWorks Address Unknown Phone Unavailable Care Team Providers Care Assembly Manager Name Role Phone JACK CASTRO Unavailable Allergies, Adverse Reactions, Alerts Substance Reaction Event Type Penicillin V Potassium Info Not Available Drug Allergy Bandaids burning Non Drug Allergy Problems Problem Type Condition Code Onset Dates Condition Status Assessment Acute upper respiratory infection, unspecified J06.9 Active Assessment Encounter for contraceptive management, unspecified Z30.9 Active Problem Encounter for surveillance of injectable contraceptive Z30.42 Active Problem Asthma 493.90 Active Problem Mild persistent asthma with (acute) exacerbation J45.31 Active Assessment Encounter for surveillance of injectable contraceptive Z30.42 Active Assessment GERD (gastroesophageal reflux disease) K21.9 Active Problem Diabetes mellitus without mention of complication, type II or unspecified type, not stated as uncontrolled 250.00 Active Assessment Mild persistent asthma with (acute) exacerbation J45.31 Active Medications Medication Code System Code Instructions Start Date End Date Status Dosage Metformin HCl [facility] [address]-65 500 MG Orally Once a day TAKE ONE TABLET BY MOUTH DAILY WITH A MEAL Depo-Provera [facility] [address]-90 150 mg/mL July 05, 2014 inject 150 mg by intramuscular route every 3 months Wellbutrin SR [facility] [address]-97 150 mg Apr 21, 2013 take 1 tablet (150 mg) by oral route 2 times per day Pamelor [facility] [address]-02 25 mg Mar 10, 2014 TAKE ONE CAPSULE BY MOUTH TWICE A DAY. Flonase [facility] [address]-41 50 mcg/actuation Nasally Once a day July 14, 2013 1 sprays by Nasal route 2 times per day in each nostril Advair Diskus [facility] [address]-80 250-50 MCG/DOSE Inhalation Twice a day Jan 12, 2015 1 puff Zofran ODT [facility] [address]-51 8 mg May 31, 2014 1 tablet by Oral route every 8 hours PRN nausea or vomiting Azithromycin [facility] [address]-33 250 MG Orally Once a day Jan 20, 2015 Jan 25, 2015 2 tablets on the first day, then 1 tablet daily for 4 days Albuterol Sulfate [facility] [address]-17 0.63 mg/3 mL Feb 08, 2014 3 mL by Inhalation route every 4 hours PRN cough or wheeze pantoprazole ND 0 40 mg oral Once a day September 02, 2013 Feb 01, 2015 1 ProAir HFA [facility] [address]-80 90 mcg/actuation Mar 10, 2014 inhale 2 puffs by Inhalation route every 4-6 hours as needed PRN shortness of breath/ cough Amitriptyline HCl [facility] [address]-97 25 MG Orally Once a day Jan 20, 2015 1 tablet PredniSONE [facility] [address]-62 10 MG Orally Twice a day Jan 20, 2015Jan 1 tablet with food or milk Tramadol HCl [facility] [address]-45 50 MG Orally every 6 hrs September 15, 2014 1 tablet as needed Cortisporin [facility] [address]-86 3.5-56429-9 Otic Three times a day September 15, 2014 4 drops into affected ear Celexa [facility] [address]-26 10 mg Mar 10, 2014 take 1 tablet (10 mg) by oral route once daily Lancets Micro Thin 33G [facility] [address] September 23, 2014 as directed Albuterol NDC 0 90 mcg/actuation Feb 04, 2014 2 puffs by Inhalation route every 4-6 hours for 7 days Promethazine HCl [facility] [address]-23 6.25 MG/5ML Orally every 6 hrs prn nausea and cough Jan 20, 2015 10 ml as needed Singulair [facility] [address]-85 10 MG Orally Once a day May 28, 2014 1 tablet by Oral route 1 time per day Wellbutrin SR [facility] [address]-34 100 MG Orally once per day 1 tablet ZyrTEC ND 0 10 mg September 02, 2013 take 1 tablet (10 mg) by oral route once daily Procedures Procedure Coding System Code Date URINE TEST CPT-4 51492 Jan 20, 2015 DEPO PROVERA (150 MG/ML) CPT-4 J1050 Jan 20, 2015 MEASURE BLOOD OXYGEN LEVEL CPT-4 30816 Jan 20, 2015 Office Visit, Est Pt., Level 4 CPT-4 17342 Jan 20, 2015 THER/PROPH/DIAG INJ, SC/IM CPT-4 90627 Jan 20, 2015 Vital Signs Date/Time: Jan 20, 2015 Temperature 99.0 F Weight 248.8 lbs Height 68 in Oximetry 100 % Blood Pressure Diastolic 80 mmHg Blood Pressure Systolic 120 mmHg Cardiac Monitoring Heart Rate 86 bpm BMI 37.83 Index Results Name Result Date Reference Range Unit Abnormality Flag TEST, URINE (IN HOUSE) Summary Purpose eClinicalWorks Submission
--- OUTSIDE RECORDS SUMMARY | 2016-08-12 04:40 | XMS REPORT ---
Author Author ARTURO RUIZ Organization e[employer] Address Unknown Phone Unavailable Care Team Providers Care Certified Professional Ergonomist Name Role Phone ARTURO RUIZ CP Unavailable Allergies, Adverse Reactions, Alerts Substance Reaction Event Type Penicillin V Potassium Info Not Available Drug Allergy Bandaids burning Non Drug Allergy Problems Problem Type Condition Code Onset Dates Condition Status Problem Type 2 diabetes mellitus without complication E11.9 Active Problem Fatigue, unspecified type R53.83 Active Problem Moderate persistent asthma with acute exacerbation J45.41 Active Assessment Dental examination Z01.20 Active Assessment Dental caries, unspecified K02.9 Active Problem Mild persistent asthma with (acute) exacerbation J45.31 Active Problem Encounter for surveillance of injectable contraceptive Z30.42 Active Medications Medication Code System Code Instructions Start Date End Date Status Dosage [facility] [address]-61 5-325 MG Orally every 6 hrs Mar 14, 2015 1 tablet as needed Procedures Procedure Coding System Code Date INTRAORL-PERIAPICAL 1 FILM 31430 CPT-4 D0220 Mar 14, 2015 EXTRAC ERUPTED TOOTH/EXPOSED ROOT CPT-4 D7140 Mar 14, 2015 LTD ORAL EVALUATION - PROBLEM FOCUS CPT-4 D0140 Mar 14, 2015 Vital Signs Date/Time: Mar 14, 2015 Blood Pressure Diastolic 32 mmHg Blood Pressure Systolic 91 mmHg Results No Known Results Summary Purpose eClinicalWorks Submission
--- OUTSIDE RECORDS SUMMARY | 2016-08-12 04:44 | XMS REPORT | Continuity of Care Document ---
Author Author [facility] Address Unknown Phone Unavailable Allergies Active Description Code Type Severity Reaction Onset Reported/Identified Relationship to Patient Clinical Status Yes Penicillins Drug Allergy N/A N/A 09/20/2008 Yes Penicillins [id number] Drug Allergy Unknown N/A 09/28/2011 Medications Problems Date Dx Coded Attending Type Code Diagnosis Diagnosed By 11/13/2007 V58.69 MEDICATION HIGH RISK 11/13/2007 JERAMY FUNEZ MD V58.69 MEDICATION HIGH RISK 11/13/2007 JERAMY FUNEZ MD V58.69 MEDICATION HIGH RISK 11/13/2007 SARAI MURRELL APRN V58.69 MEDICATION HIGH RISK 11/13/2007 ROMANO DO LAUREANO K V58.69 MEDICATION HIGH RISK 11/13/2007 ROMANO DO, LAUREANO K V58.69 MEDICATION HIGH RISK 11/13/2007 ROMANO DO, LAUREANO K V58.69 MEDICATION HIGH RISK 11/13/2007 ROMANO DO, LAUREANO K V58.69 MEDICATION HIGH RISK 11/13/2007 ROMANO DO, LAUREANO K V58.69 MEDICATION HIGH RISK 11/13/2007 RONALD KAT APRN V58.69 MEDICATION HIGH RISK 11/13/2007 PINA MARTELL APRN V58.69 MEDICATION HIGH RISK 11/13/2007 ROMANO DO LAUREANO K V58.69 MEDICATION HIGH RISK 11/13/2007 ROMANO DO, LAUREANO K V58.69 MEDICATION HIGH RISK 11/13/2007 RONALD KAT APRN V58.69 MEDICATION HIGH RISK 11/13/2007 ROMANO DO, LAUREANO K V58.69 MEDICATION HIGH RISK 11/13/2007 EATPINA KEENE APRN V58.69 MEDICATION HIGH RISK 11/13/2007 JACK CASTRO APRN V58.69 MEDICATION HIGH RISK 11/13/2007 ROMANO DO LAUREANO K V58.69 MEDICATION HIGH RISK 11/13/2007 ROMANO DO LAUREANO K V58.69 MEDICATION HIGH RISK 11/13/2007 MADL DIAMOND BROKER, JACK L V58.69 MEDICATION HIGH RISK 11/13/2007 NAVIN DIAMOND BROKER, MILTON R V58.69 MEDICATION HIGH RISK 11/13/2007 MADL DIAMOND BROKER, JACK L V58.69 MEDICATION HIGH RISK 11/13/2007 MADL DIAMOND BROKER, JACK L V58.69 MEDICATION HIGH RISK 11/13/2007 MADL DIAMOND BROKER, JACK L V58.69 MEDICATION HIGH RISK 11/13/2007 MADL DIAMOND BROKER, JACK L V58.69 MEDICATION HIGH RISK 11/13/2007 SHAIKH DIAMOND BROKER, GEMMA D V58.69 MEDICATION HIGH RISK 11/13/2007 MADL DIAMOND BROKER, JACK L V58.69 MEDICATION HIGH RISK 11/13/2007 MADL DIAMOND BROKER, JACK L V58.69 MEDICATION HIGH RISK 11/13/2007 LEIGHA DIAMOND BROKER, PHYLLIS A V58.69 MEDICATION HIGH RISK 12/17/2007 V05.8 GARDASIL, SHINGLES, OTHER SPECIFIED DISEASE 12/17/2007 JERAMY FUNEZ MD V05.8 GARDASIL, SHINGLES, OTHER SPECIFIED DISEASE 12/17/2007 JERAMY FUNEZ MD V05.8 GARDASIL, SHINGLES, OTHER SPECIFIED DISEASE 12/17/2007 SARAI MURRELL APRN V05.8 GARDASIL, SHINGLES, OTHER SPECIFIED DISEASE 12/17/2007 LAUREANO ROMANO DO K V05.8 GARDASIL, SHINGLES, OTHER SPECIFIED DISEASE 12/17/2007 LAUREANO ROMANO DO V05.8 GARDASIL, SHINGLES, OTHER SPECIFIED DISEASE 12/17/2007 LAUREANO ROMANO DO K V05.8 GARDASIL, SHINGLES, OTHER SPECIFIED DISEASE 12/17/2007 LAUREANO ROMANO DO V05.8 GARDASIL, SHINGLES, OTHER SPECIFIED DISEASE 12/17/2007 LAUREANO ROMANO DO V05.8 GARDASIL, SHINGLES, OTHER SPECIFIED DISEASE 12/17/2007 RONALD KAT APRN V05.8 GARDASIL, SHINGLES, OTHER SPECIFIED DISEASE 12/17/2007 PINA MARTELL APRN V05.8 GARDASIL, SHINGLES, OTHER SPECIFIED DISEASE 12/17/2007 ROMANO DO, LAUREANO K V05.8 GARDASIL, SHINGLES, OTHER SPECIFIED DISEASE 12/17/2007 ROMANO DO, LAUREANO K V05.8 GARDASIL, SHINGLES, OTHER SPECIFIED DISEASE 12/17/2007 SHEY DIAMOND BROKER, RONALD Regalado V05.8 GARDASIL, SHINGLES, OTHER SPECIFIED DISEASE 12/17/2007 ROMANO DO, LAUREANO K V05.8 GARDASIL, SHINGLES, OTHER SPECIFIED DISEASE 12/17/2007 EATON DIAMOND BROKER, PINA L V05.8 GARDASIL, SHINGLES, OTHER SPECIFIED DISEASE 12/17/2007 MADL DIAMOND BROKER, JACK L V05.8 GARDASIL, SHINGLES, OTHER SPECIFIED DISEASE 12/17/2007 ROMANO DO, LAUREANO K V05.8 GARDASIL, SHINGLES, OTHER SPECIFIED DISEASE 12/17/2007 ROMANO DO, LAUREANO K V05.8 GARDASIL, SHINGLES, OTHER SPECIFIED DISEASE 12/17/2007 MADL DIAMOND BROKER, JACK L V05.8 GARDASIL, SHINGLES, OTHER SPECIFIED DISEASE 12/17/2007 NAVIN DIAMOND BROKER, MILTON R V05.8 GARDASIL, SHINGLES, OTHER SPECIFIED DISEASE 12/17/2007 MADL DIAMOND BROKER, JACK L V05.8 GARDASIL, SHINGLES, OTHER SPECIFIED DISEASE 12/17/2007 MADL DIAMOND BROKER, JACK L V05.8 GARDASIL, SHINGLES, OTHER SPECIFIED DISEASE 12/17/2007 MADL DIAMOND BROKER, JACK L V05.8 GARDASIL, SHINGLES, OTHER SPECIFIED DISEASE 12/17/2007 MADL DIAMOND BROKER, JACK L V05.8 GARDASIL, SHINGLES, OTHER SPECIFIED DISEASE 12/17/2007 NEEL DIAMOND BROKER, GEMMA Salas V05.8 GARDASIL, SHINGLES, OTHER SPECIFIED DISEASE 12/17/2007 MADL DIAMOND BROKER, JACK L V05.8 GARDASIL, SHINGLES, OTHER SPECIFIED DISEASE 12/17/2007 MADL DIAMOND BROKER, JACK L V05.8 GARDASIL, SHINGLES, OTHER SPECIFIED DISEASE 12/17/2007 LEIGHA DIAMOND BROKER, PHYLLIS Granados V05.8 GARDASIL, SHINGLES, OTHER SPECIFIED DISEASE 01/16/2008 787.01 nausea with vomiting 01/16/2008 789.00 COLIC INFANTILE 01/16/2008 V25.40 visit for: contraceptive surveillance 01/16/2008 JERAMY FUNEZ MD 787.01 nausea with vomiting 01/16/2008 JERAMY FUNEZ MD 789.00 COLIC INFANTILE 01/16/2008 JERAMY FUNEZ MD V25.40 visit for: contraceptive surveillance 01/16/2008 JERAMY FUNEZ MD 787.01 nausea with vomiting 01/16/2008 JERAMY FUNEZ MD 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.00 COLIC INFANTILE 01/16/2008 JERAMY FUNEZ MD V25.40 visit for: contraceptive surveillance 01/16/2008 SARAI MURRELL APRN N 787.01 nausea with vomiting 01/16/2008 SARAI MURRELL APRN N 789.00 COLIC INFANTILE 01/16/2008 SARAI MURRELL APRN N V25.40 visit for: contraceptive surveillance 01/16/2008 JUAN ANTONIO DURHAM LAUREANO K 787.01 nausea with vomiting 01/16/2008 JUAN ANTONIO DURHAM LAUREANO K 789.00 COLIC INFANTILE 01/16/2008 JUAN ANTONIO DURHAM LAUREANO K V25.40 visit for: contraceptive surveillance 01/16/2008 JUAN ANTONIO DURHAM LAUREANO K 787.01 nausea with vomiting 01/16/2008 JUAN ANTONIO DURHAM LAUREANO K 789.00 COLIC INFANTILE 01/16/2008 JUAN ANTONIO DURHAM LAUREANO K V25.40 visit for: contraceptive surveillance 01/16/2008 JUAN ANTONIO DURHAM LAUREANO K 787.01 nausea with vomiting 01/16/2008 JUAN ANTONIO DURHAM LAUREANO K 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.00 COLIC INFANTILE 01/16/2008 JUAN ANTONIO DURHAM LAUREANO K V25.40 visit for: contraceptive surveillance 01/16/2008 ROMANO DO LAUREANO K 787.01 nausea with vomiting 01/16/2008 JUAN ANTONIO DURHAM LAUREANO K 789.00 COLIC INFANTILE 01/16/2008 ROMANO DO LAUREANO K V25.40 visit for: contraceptive surveillance 01/16/2008 ROMANO DO LAUREANO K 787.01 nausea with vomiting 01/16/2008 JUAN ANTONIO DURHAM LAUREANO K 789.00 COLIC INFANTILE 01/16/2008 JUAN ANTONIO DURHAM LAUREANO K V25.40 visit for: contraceptive surveillance 01/16/2008 RONALD KAT APRN 787.01 nausea with vomiting 01/16/2008 RONALD KAT APRN 789.00 COLIC INFANTILE 01/16/2008 RONALD KAT APRN V25.40 visit for: contraceptive surveillance 01/16/2008 PINA MARTELL APRN L 787.01 NAUSEA WITH VOMITING 01/16/2008 PINA MARTELL APRN 789.00 COLIC INFANTILE 01/16/2008 EATPINA KEENE APRN L V25.40 visit for: contraceptive surveillance 01/16/2008 ROMANO DO LAUREANO K 787.01 NAUSEA WITH VOMITING 01/16/2008 ROMANO DO LAUREANO K 789.00 COLIC INFANTILE 01/16/2008 ROMANO DO LAUREANO K V25.40 visit for: contraceptive surveillance 01/16/2008 ROMANO DO LAUREANO K 787.01 NAUSEA WITH VOMITING 01/16/2008 ROMANO DO LAUREANO K 789.00 COLIC INFANTILE 01/16/2008 JUAN ANTONIO DURHAM LAUREANO K V25.40 visit for: contraceptive surveillance 01/16/2008 RONALD KAT APRN 787.01 NAUSEA WITH VOMITING 01/16/2008 RONALD KAT APRN 789.00 COLIC INFANTILE 01/16/2008 RONALD KAT APRN V25.40 visit for: contraceptive surveillance 01/16/2008 ROMANO DO LAUREANO K 787.01 NAUSEA WITH VOMITING 01/16/2008 JUAN ANTONIO DURHAM LAUREANO K 789.00 COLIC INFANTILE 01/16/2008 JUAN ANTONIO DURHAM LAUREANO K V25.40 visit for: contraceptive surveillance 01/16/2008 PINA MARTELL APRN 787.01 NAUSEA WITH VOMITING 01/16/2008 PINA MARTELL APRN L 789.00 COLIC INFANTILE 01/16/2008 PINA MARTELL APRN L V25.40 visit for: contraceptive surveillance 01/16/2008 JACK CASTRO APRN L 787.01 NAUSEA WITH VOMITING 01/16/2008 MADL PETER BRUMFIELDA L 789.00 COLIC INFANTILE 01/16/2008 MADL PETER BRUMFIELDA L V25.40 visit for: contraceptive surveillance 01/16/2008 JUAN ANTONIO DURHAM LAUREANO K 787.01 NAUSEA WITH VOMITING 01/16/2008 JUAN ANTONIO DURHAM LAUREANO K 789.00 COLIC INFANTILE 01/16/2008 JUAN ANTONIO DURHAM LAUREANO K V25.40 visit for: contraceptive surveillance 01/16/2008 JUAN ANTONIO DURHAM LAUREANO K 787.01 NAUSEA WITH VOMITING 01/16/2008 JUAN ANTONIO DURHAM LAUREANO K 789.00 COLIC INFANTILE 01/16/2008 JUAN ANTONIO DURHAM LAUREANO K V25.40 visit for: contraceptive surveillance 01/16/2008 MADL DIAMOND BROKER, JACK L 787.01 NAUSEA WITH VOMITING 01/16/2008 MADL DIAMOND BROKER, JACK L 789.00 COLIC INFANTILE 01/16/2008 MADL DIAMOND BROKER, JACK L V25.40 visit for: contraceptive surveillance 01/16/2008 NAVIN DIAMOND BROKER, MILTON R 787.01 NAUSEA WITH VOMITING 01/16/2008 NAVIN DIAMOND BROKER, MILTON R 789.00 COLIC INFANTILE 01/16/2008 NAVIN WHITLEYN, MILTON R V25.40 visit for: contraceptive surveillance 01/16/2008 MADL DIAMOND BROKER, JACK L 787.01 NAUSEA WITH VOMITING 01/16/2008 MADL DIAMOND BROKER, JACK L 789.00 COLIC INFANTILE 01/16/2008 MADL DIAMOND BROKER, JACK L V25.40 visit for: contraceptive surveillance 01/16/2008 MADL DIAMOND BROKER, JACK L 787.01 NAUSEA WITH VOMITING 01/16/2008 MADL DIAMOND BROKER, JACK L 789.00 COLIC INFANTILE 01/16/2008 MADL DIAMOND BROKER, JACK L V25.40 visit for: contraceptive surveillance 01/16/2008 MADL DIAMOND BROKER, JACK L 787.01 NAUSEA WITH VOMITING 01/16/2008 MADL DIAMOND BROKER, JACK L 789.00 COLIC INFANTILE 01/16/2008 MADL DIAMOND BROKER, JACK L V25.40 visit for: contraceptive surveillance 01/16/2008 MADL DIAMOND BROKER, JACK L 787.01 NAUSEA WITH VOMITING 01/16/2008 MADL DIAMOND BROKER, JACK L 789.00 COLIC INFANTILE 01/16/2008 MADL DIAMOND BROKER, JACK L V25.40 visit for: contraceptive surveillance 01/16/2008 GEMMA SHAIKH APRN 787.01 NAUSEA WITH VOMITING 01/16/2008 GEMMA SHAIKH APRN 789.00 COLIC INFANTILE 01/16/2008 GEMMA SHAIKH APRN V25.40 visit for: contraceptive surveillance 01/16/2008 MADL DIAMOND BROKER, JACK L 787.01 NAUSEA WITH VOMITING 01/16/2008 MADL DIAMOND BROKER, JACK L 789.00 COLIC INFANTILE 01/16/2008 MADL DIAMOND BROKER, JACK L V25.40 visit for: contraceptive surveillance 01/16/2008 MADL DIAMOND BROKER, JACK L 787.01 NAUSEA WITH VOMITING 01/16/2008 MADL DIAMOND BROKER, JACK L 789.00 COLIC INFANTILE 01/16/2008 MADL DIAMOND BROKER, JACK L V25.40 visit for: contraceptive surveillance 01/16/2008 LEIGHA DIAMOND BROKER, PHYLLIS A 787.01 nausea with vomiting 01/16/2008 LEIGHA DIAMOND BROKER, PHYLLIS A 789.00 COLIC INFANTILE 01/16/2008 LEIGHA DIAMOND BROKER, PHYLLIS A V25.40 visit for: contraceptive surveillance 03/22/2008 382.00 OTITIS MEDIA ACUTE WITHOUT SPONTANEOUS RUPTURE EARDRUM 03/22/2008 786.2 cough 03/22/2008 JERAMY FUNEZ MD 382.00 OTITIS MEDIA ACUTE WITHOUT SPONTANEOUS RUPTURE EARDRUM 03/22/2008 JERAMY FUNEZ MD 786.2 cough 03/22/2008 JERAMY FUNEZ MD 382.00 OTITIS MEDIA ACUTE WITHOUT SPONTANEOUS RUPTURE EARDRUM 03/22/2008 JERAMY FUNEZ MD 786.2 cough 03/22/2008 SARAI MURRELL APRN N 382.00 OTITIS MEDIA ACUTE WITHOUT SPONTANEOUS RUPTURE EARDRUM 03/22/2008 SARAI MURRELL APRN N 786.2 cough 03/22/2008 JUAN ANTONIO DURHAM LAUREANO K 382.00 OTITIS MEDIA ACUTE WITHOUT SPONTANEOUS RUPTURE EARDRUM 03/22/2008 JUAN ANTONIO DURHAM LAUREANO K 786.2 cough 03/22/2008 ROMANO , LAUREANO K 382.00 OTITIS MEDIA ACUTE WITHOUT SPONTANEOUS RUPTURE EARDRUM 03/22/2008 ROMANO DO LAUREANO K 786.2 cough 03/22/2008 ROMANO DO, LAUREANO K 382.00 OTITIS MEDIA ACUTE WITHOUT SPONTANEOUS RUPTURE EARDRUM 03/22/2008 ROMANO DO, LAUREANO K 786.2 cough 03/22/2008 ROMANO DO, LAUREANO K 382.00 OTITIS MEDIA ACUTE WITHOUT SPONTANEOUS RUPTURE EARDRUM 03/22/2008 ROMANO DO, LAUREANO K 786.2 cough 03/22/2008 ROMANO DO, LAUREANO K 382.00 OTITIS MEDIA ACUTE WITHOUT SPONTANEOUS RUPTURE EARDRUM 03/22/2008 ROMANO DO, LAUREANO K 786.2 cough 03/22/2008 KAT RONALD BRUMFIELD 382.00 OTITIS MEDIA ACUTE WITHOUT SPONTANEOUS RUPTURE EARDRUM 03/22/2008 KAT RONALD BRUMFIELD 786.2 cough 03/22/2008 EATON DIAMOND BROKER PIAN L 382.00 OTITIS MEDIA ACUTE WITHOUT SPONTANEOUS RUPTURE EARDRUM 03/22/2008 EATON DIAMOND BROKER, PINA L 786.2 COUGH 03/22/2008 ROMANO DO, LAUREANO K 382.00 OTITIS MEDIA ACUTE WITHOUT SPONTANEOUS RUPTURE EARDRUM 03/22/2008 ROMANO DO, LAUREANO K 786.2 COUGH 03/22/2008 ROMANO DO, LAUREANO K 382.00 OTITIS MEDIA ACUTE WITHOUT SPONTANEOUS RUPTURE EARDRUM 03/22/2008 ROMANO DO, LAUREANO K 786.2 COUGH 03/22/2008 KAT RONALD BRUMFIELD J 382.00 OTITIS MEDIA ACUTE WITHOUT SPONTANEOUS RUPTURE EARDRUM 03/22/2008 KAT RONALD BRUMFIELD 786.2 COUGH 03/22/2008 ROMANO DO, LAUREANO K 382.00 OTITIS MEDIA ACUTE WITHOUT SPONTANEOUS RUPTURE EARDRUM 03/22/2008 ROMANO DO, LAUREANO K 786.2 COUGH 03/22/2008 EATON DIAMOND BROKER PINA L 382.00 OTITIS MEDIA ACUTE WITHOUT SPONTANEOUS RUPTURE EARDRUM 03/22/2008 EATON DIAMOND BROKER, PINA L 786.2 COUGH 03/22/2008 MADL DIAMOND BROKER, JACK L 382.00 OTITIS MEDIA ACUTE WITHOUT SPONTANEOUS RUPTURE EARDRUM 03/22/2008 MADL DIAMOND BROKER, JACK L 786.2 COUGH 03/22/2008 ROMANO DO, LAUREANO K 382.00 OTITIS MEDIA ACUTE WITHOUT SPONTANEOUS RUPTURE EARDRUM 03/22/2008 ROMANO DO, LAUREANO K 786.2 COUGH 03/22/2008 ROMANO DO, LAUREANO K 382.00 OTITIS MEDIA ACUTE WITHOUT SPONTANEOUS RUPTURE EARDRUM 03/22/2008 LAUREANO ROMANO DO 786.2 COUGH 03/22/2008 MADL DIAMOND BROKER, JACK L 382.00 OTITIS MEDIA ACUTE WITHOUT SPONTANEOUS RUPTURE EARDRUM 03/22/2008 MADL DIAMOND BROKER, JACK L 786.2 COUGH 03/22/2008 NAVIN DIAMOND BROKER, MILTON R 382.00 OTITIS MEDIA ACUTE WITHOUT SPONTANEOUS RUPTURE EARDRUM 03/22/2008 NAVIN DIAMOND BROKER, MILTON R 786.2 COUGH 03/22/2008 MADL DIAMOND BROKER, JACK L 382.00 OTITIS MEDIA ACUTE WITHOUT SPONTANEOUS RUPTURE EARDRUM 03/22/2008 MADL DIAMOND BROKER, JACK L 786.2 COUGH 03/22/2008 MADL DIAMOND BROKER, JACK L 382.00 OTITIS MEDIA ACUTE WITHOUT SPONTANEOUS RUPTURE EARDRUM 03/22/2008 MADL DIAMOND BROKER, JACK L 786.2 COUGH 03/22/2008 MADL DIAMOND BROKER, JACK L 382.00 OTITIS MEDIA ACUTE WITHOUT SPONTANEOUS RUPTURE EARDRUM 03/22/2008 MADL DIAMOND BROKER, JACK L 786.2 COUGH 03/22/2008 MADL DIAMOND BROKER, JACK L 382.00 OTITIS MEDIA ACUTE WITHOUT SPONTANEOUS RUPTURE EARDRUM 03/22/2008 MADL DIAMOND BROKER, JACK L 786.2 COUGH 03/22/2008 GEMMA SHAIKH APRN 382.00 OTITIS MEDIA ACUTE WITHOUT SPONTANEOUS RUPTURE EARDRUM 03/22/2008 GEMMA SHAIKH APRN 786.2 COUGH 03/22/2008 MADL DIAMOND BROKER, JACK L 382.00 OTITIS MEDIA ACUTE WITHOUT SPONTANEOUS RUPTURE EARDRUM 03/22/2008 MADL DIAMOND BROKER, JACK L 786.2 COUGH 03/22/2008 MADL DIAMOND BROKER, JACK L 382.00 OTITIS MEDIA ACUTE WITHOUT SPONTANEOUS RUPTURE EARDRUM 03/22/2008 MADL DIAMOND BROKER, JACK L 786.2 COUGH 03/22/2008 LEIGHA DIAMOND BROKER, PHYLLIS A 382.00 OTITIS MEDIA ACUTE WITHOUT SPONTANEOUS RUPTURE EARDRUM 03/22/2008 LEIGHA DIAMOND BROKER, PHYLLIS A 786.2 cough 09/20/2008 388.70 earache 09/20/2008 V25.9 Gynecologic Services Contraceptive Management 09/20/2008 V72.31 ROUTINE PELVIC EXAM WITH CERVICAL PAP SMEAR 09/20/2008 JERAMY FUNEZ MD 388.70 earache 09/20/2008 JERAMY FUNEZ MD V25.9 Gynecologic Services Contraceptive Management 09/20/2008 JERAMY FUNEZ MD V72.31 ROUTINE PELVIC EXAM WITH CERVICAL PAP SMEAR 09/20/2008 JERAMY FUNEZ MD 388.70 earache 09/20/2008 JERAMY FUNEZ MD V25.9 Gynecologic Services Contraceptive Management 09/20/2008 JERAMY FUNEZ MD V72.31 ROUTINE PELVIC EXAM WITH CERVICAL PAP SMEAR 09/20/2008 HARRINGTONTAVO SANTOS APRNCY N 388.70 earache 09/20/2008 HARRINGTON CASHTAVO COLUNGA APRNCY N V25.9 Gynecologic Services Contraceptive Management 09/20/2008 HARRINGTONSARAI SANTOS APRN N V72.31 ROUTINE PELVIC EXAM WITH CERVICAL PAP SMEAR 09/20/2008 LAUREANO ROMANO DO K 388.70 earache 09/20/2008 MARISEL ROMANO DOA K V25.9 Gynecologic Services Contraceptive Management 09/20/2008 MARISEL ROMANO DOA K V72.31 ROUTINE PELVIC EXAM WITH CERVICAL PAP SMEAR 09/20/2008 MRAISEL ROMANO DOA K 388.70 earache 09/20/2008 ROMANO DO LAUREANO K V25.9 Gynecologic Services Contraceptive Management 09/20/2008 JUAN ANTONIO DURHAM LAUREANO K V72.31 ROUTINE PELVIC EXAM WITH CERVICAL PAP SMEAR 09/20/2008 MARISEL ROMANO DOA K 388.70 earache 09/20/2008 ROMANO DO LAUREANO K V25.9 Gynecologic Services Contraceptive Management 09/20/2008 MARISEL ROMANO DOA K V72.31 ROUTINE PELVIC EXAM WITH CERVICAL PAP SMEAR 09/20/2008 MARISEL ROMANO DOA K 388.70 earache 09/20/2008 JUAN ANTONIO DURHAM LAUREANO K V25.9 Gynecologic Services Contraceptive Management 09/20/2008 ROMANO DO LAUREANO K V72.31 ROUTINE PELVIC EXAM WITH CERVICAL PAP SMEAR 09/20/2008 MARISEL ROMANO DOA K 388.70 earache 09/20/2008 MARISEL ROMANO DOA K V25.9 Gynecologic Services Contraceptive Management 09/20/2008 ROMANO DO LAUREANO K V72.31 ROUTINE PELVIC EXAM 09/20/2008 RONALD KAT APRN 388.70 earache 09/20/2008 RONALD KAT APRN V25.9 Gynecologic Services Contraceptive Management 09/20/2008 RONALD KAT APRN V72.31 ROUTINE PELVIC EXAM 09/20/2008 EATON DIAMOND BROKERPINA Kruger 388.70 EARACHE 09/20/2008 EATON DIAMOND BROKERPINA Kruger L V25.9 Gynecologic Services Contraceptive Management 09/20/2008 EATON DIAMOND BROKERPINA Kruger L V72.31 ROUTINE PELVIC EXAM 09/20/2008 ROMANO DO LAUREANO K 388.70 EARACHE 09/20/2008 ROMANO DO LAUREANO K V25.9 Gynecologic Services Contraceptive Management 09/20/2008 ROMANO DO, LAUREANO K V72.31 ROUTINE PELVIC EXAM 09/20/2008 ROMANO DO, LAUREANO K 388.70 EARACHE 09/20/2008 ROMANO DO, LAUREANO K V25.9 Gynecologic Services Contraceptive Management 09/20/2008 ROMANO DO, LAUREANO K V72.31 ROUTINE PELVIC EXAM 09/20/2008 RONALD KAT APRN 388.70 EARACHE 09/20/2008 KATRONALD PATEL APRN V25.9 Gynecologic Services Contraceptive Management 09/20/2008 KAT RONALD BRUMFIELD V72.31 ROUTINE PELVIC EXAM 09/20/2008 ROMANO DO LAUREANO K 388.70 EARACHE 09/20/2008 ROMANO DO LAUREANO K V25.9 Gynecologic Services Contraceptive Management 09/20/2008 ROMANO DO LAUREANO K V72.31 ROUTINE PELVIC EXAM 09/20/2008 EATON DIAMOND BROKERPINA Kruger L 388.70 EARACHE 09/20/2008 EATON DIAMOND BROKERPINA Kruger L V25.9 Gynecologic Services Contraceptive Management 09/20/2008 EATON DIAMOND BROKERPINA Kruger L V72.31 ROUTINE PELVIC EXAM 09/20/2008 MADL DIAMOND BROKER JACK L 388.70 EARACHE 09/20/2008 MADL DIAMOND BROKER, JACK L V25.9 Gynecologic Services Contraceptive Management 09/20/2008 MADL DIAMOND BROKER, JACK L V72.31 ROUTINE PELVIC EXAM 09/20/2008 ROMANO DO, LAUREANO K 388.70 EARACHE 09/20/2008 ROMANO DO, LAUREANO K V25.9 Gynecologic Services Contraceptive Management 09/20/2008 ROMANO DO, LAUREANO K V72.31 ROUTINE PELVIC EXAM 09/20/2008 ROMANO DO LAUREANO K 388.70 EARACHE 09/20/2008 ROMANO DO, LAUREANO K V25.9 Gynecologic Services Contraceptive Management 09/20/2008 ROMANO DO, LAUREANO K V72.31 ROUTINE PELVIC EXAM 09/20/2008 MADL DIAMOND BROKER, JACK L 388.70 EARACHE 09/20/2008 MADL DIAMOND BROKER, JACK L V25.9 Gynecologic Services Contraceptive Management 09/20/2008 MADL DIAMOND BROKER, JACK L V72.31 ROUTINE PELVIC EXAM 09/20/2008 NAVIN DIAMOND BROKER, MILTON R 388.70 EARACHE 09/20/2008 NAVIN DIAMOND BROKER, MILTON R V25.9 Gynecologic Services Contraceptive Management 09/20/2008 NAVIN DIAMOND BROKER, MILTON R V72.31 ROUTINE PELVIC EXAM 09/20/2008 MADL DIAMOND BROKER, JACK L 388.70 EARACHE 09/20/2008 MADL DIAMOND BROKER, JACK L V25.9 Gynecologic Services Contraceptive Management 09/20/2008 MADL DIAMOND BROKER, JACK L V72.31 ROUTINE PELVIC EXAM 09/20/2008 MADL DIAMOND BROKER, JACK L 388.70 EARACHE 09/20/2008 MADL DIAMOND BROKER, JACK L V25.9 Gynecologic Services Contraceptive Management 09/20/2008 MADL DIAMOND BROKER, JACK L V72.31 ROUTINE PELVIC EXAM 09/20/2008 MADL DIAMOND BROKER, JACK L 388.70 EARACHE 09/20/2008 MADL DIAMOND BROKER, JACK L V25.9 Gynecologic Services Contraceptive Management 09/20/2008 MADL DIAMOND BROKER, JACK L V72.31 ROUTINE PELVIC EXAM 09/20/2008 MADL DIAMOND BROKER, JACK L 388.70 EARACHE 09/20/2008 MADL DIAMOND BROKER, JACK L V25.9 Gynecologic Services Contraceptive Management 09/20/2008 MADL DIAMOND BROKER, JACK L V72.31 ROUTINE PELVIC EXAM 09/20/2008 GEMMA SHAIKH APRN 388.70 EARACHE 09/20/2008 GEMMA SHAIKH APRN V25.9 Gynecologic Services Contraceptive Management 09/20/2008 GEMMA SHAIKH APRN V72.31 ROUTINE PELVIC EXAM 09/20/2008 MADL DIAMOND BROKER, JACK L 388.70 EARACHE 09/20/2008 MADL DIAMOND BROKER, JACK L V25.9 Gynecologic Services Contraceptive Management 09/20/2008 PETER CASTRO APRNA L V72.31 ROUTINE PELVIC EXAM 09/20/2008 PETER CASTRO APRNA L 388.70 EARACHE 09/20/2008 PETER CASTRO APRNA L V25.9 Gynecologic Services Contraceptive Management 09/20/2008 PETER CASTRO APRNA L V72.31 ROUTINE PELVIC EXAM 09/20/2008 INESSA AHUJA APRNIDI A 388.70 earache 09/20/2008 INESSA AHUJA APRNIDI A V25.9 Gynecologic Services Contraceptive Management 09/20/2008 INESSA AHUJA APRNIDI A V72.31 ROUTINE PELVIC EXAM WITH CERVICAL PAP SMEAR 12/21/2008 493.90 ASTHMA UNSPECIFIED 12/21/2008 691.0 DIAPER RASH 12/21/2008 784.0 HEADACHE 12/21/2008 JERAMY FUNEZ MD 493.90 ASTHMA 12/21/2008 JERAMY FUNEZ MD 691.0 DIAPER RASH 12/21/2008 JERAMY FUNEZ MD 784.0 HEADACHE 12/21/2008 JERAMY FUNEZ MD 493.90 ASTHMA 12/21/2008 JERAMY FUNEZ MD 691.0 DIAPER RASH 12/21/2008 JERAMY FUNEZ MD 784.0 HEADACHE 12/21/2008 HARRINGTONSARAI SANTOS APRN N 493.90 ASTHMA 12/21/2008 HARRINGTONSARAI SANTOS APRN N 691.0 DIAPER RASH 12/21/2008 [place] TAVO BROOKS APRNCY N 784.0 HEADACHE 12/21/2008 ROMANO DO LAUREANO K 493.90 ASTHMA 12/21/2008 ROMANO DO, LAUREANO K 691.0 DIAPER RASH 12/21/2008 ROMANO DO, LAUREANO K 784.0 HEADACHE 12/21/2008 ROMANO DO, LAUREANO K 493.90 ASTHMA 12/21/2008 ROMANO DO, LAUREANO K 691.0 DIAPER RASH 12/21/2008 ROMANO DO, LAUREANO K 784.0 HEADACHE 12/21/2008 ROMANO DO, LAUREANO K 493.90 ASTHMA 12/21/2008 ROMANO DO, LAUREANO K 691.0 DIAPER RASH 12/21/2008 ROMANO DO, LAUREANO K 784.0 HEADACHE 12/21/2008 ROMANO DO, LAUREANO K 493.90 ASTHMA 12/21/2008 ROMANO DO, LAUREANO K 691.0 DIAPER RASH 12/21/2008 ROMANO DO, LAUREANO K 784.0 HEADACHE 12/21/2008 ROMANO DO, LAUREANO K 493.90 ASTHMA 12/21/2008 ROMANO DO, LAUREANO K 691.0 DIAPER RASH 12/21/2008 ROMANO DO, LAUREANO K 784.0 HEADACHE 12/21/2008 KAT RONALD BRUMFIELD 493.90 ASTHMA 12/21/2008 KAT RONALD BRUMFIELD 691.0 DIAPER RASH 12/21/2008 KAT DIAMOND BROKERRONALD Kruger 784.0 HEADACHE 12/21/2008 EATON DIAMOND BROKERPINA Kruger 493.90 ASTHMA 12/21/2008 EATON PINA BRUMFIELD 691.0 DIAPER RASH 12/21/2008 EATON DIAMOND BROKERPINA Kruger 784.0 HEADACHE 12/21/2008 ROMANO DO, LAUREANO K 493.90 ASTHMA 12/21/2008 ROMANO DO, LAUREANO K 691.0 DIAPER RASH 12/21/2008 ROMANO DO, LAUREANO K 784.0 HEADACHE 12/21/2008 ROMANO DO, LAUREANO K 493.90 ASTHMA 12/21/2008 ROMANO DO, LAUREANO K 691.0 DIAPER RASH 12/21/2008 ROMANO DO, LAUREANO K 784.0 HEADACHE 12/21/2008 KAT RONALD BRUMFIELD 493.90 ASTHMA 12/21/2008 KAT RONALD BRUMFIELD 691.0 DIAPER RASH 12/21/2008 KAT RONALD BRUMFIELD 784.0 HEADACHE 12/21/2008 ROMANO DO, LAUREANO K 493.90 ASTHMA 12/21/2008 ROMANO DO, LAUREANO K 691.0 DIAPER RASH 12/21/2008 ROMANO DO, LAUREANO K 784.0 HEADACHE 12/21/2008 EATON DIAMOND BROKERPINA Kruger 493.90 ASTHMA 12/21/2008 EATON DIAMOND BROKERHUONG KrugerSON L 691.0 DIAPER RASH 12/21/2008 EATON DIAMOND BROKERHUONG KrugerSON Jami 784.0 HEADACHE 12/21/2008 MADL DIAMOND BROKERJAKC 493.90 ASTHMA 12/21/2008 MADL DIAMOND BROKER, JACK L 691.0 DIAPER RASH 12/21/2008 MADL DIAMOND BROKER, JACK L 784.0 HEADACHE 12/21/2008 ROMANO DO, LAUREANO K 493.90 ASTHMA 12/21/2008 ROMANO DO, LAUREANO K 691.0 DIAPER RASH 12/21/2008 ROMANO DO, LAUREANO K 784.0 HEADACHE 12/21/2008 ROMANO DO, LAUREANO K 493.90 ASTHMA 12/21/2008 ROMANO DO, LAUREANO K 691.0 DIAPER RASH 12/21/2008 ROMANO DO, LAUREANO K 784.0 HEADACHE 12/21/2008 MADL DIAMOND BROKER, JACK L 493.90 ASTHMA 12/21/2008 MADL DIAMOND BROKER, JACK L 691.0 DIAPER RASH 12/21/2008 MADL DIAMOND BROKER, JACK L 784.0 HEADACHE 12/21/2008 NAVIN DIAMOND BROKER, MILTON R 493.90 ASTHMA 12/21/2008 NAVIN DIAMOND BROKER, MILOTN R 691.0 DIAPER RASH 12/21/2008 NAVIN DIAMOND BROKER, MILTON R 784.0 HEADACHE 12/21/2008 MADL DIAMOND BROKER, JACK L 493.90 ASTHMA 12/21/2008 MADL DIAMOND BROKER, JACK L 691.0 DIAPER RASH 12/21/2008 MADL DIAMOND BROKER, JACK L 784.0 HEADACHE 12/21/2008 MADL DIAMOND BROKER, JACK L 493.90 ASTHMA 12/21/2008 MADL DIAMOND BROKER, JACK L 691.0 DIAPER RASH 12/21/2008 MADL DIAMOND BROKER, JACK L 784.0 HEADACHE 12/21/2008 MADL DIAMOND BROKER, JACK L 493.90 ASTHMA 12/21/2008 MADL DIAMOND BROKER, JACK L 691.0 DIAPER RASH 12/21/2008 MADL DIAMOND BROKER, JACK L 784.0 HEADACHE 12/21/2008 MADL DIAMOND BROKER, JACK L 493.90 ASTHMA 12/21/2008 MADL DIAMOND BROKER, JACK L 691.0 DIAPER RASH 12/21/2008 MADL DIAMOND BROKER, JACK L 784.0 HEADACHE 12/21/2008 NEEL DIAMOND BROKER, GEMMA D 493.90 ASTHMA 12/21/2008 SHAIKH DIAMOND BROKER, GEMMA D 691.0 DIAPER RASH 12/21/2008 SHAIKH DIAMOND BROKER, GEMMA D 784.0 HEADACHE 12/21/2008 MADL DIAMOND BROKER, JACK L 493.90 ASTHMA 12/21/2008 MADL DIAMOND BROKER, JACK L 691.0 DIAPER RASH 12/21/2008 MADL DIAMOND BROKER, JACK L 784.0 HEADACHE 12/21/2008 MADL DIAMOND BROKER, JACK L 493.90 ASTHMA 12/21/2008 MADL DIAMOND BROKER, JACK L 691.0 DIAPER RASH 12/21/2008 MADL DIAMOND BROKER, JACK L 784.0 HEADACHE 12/21/2008 LEIGHA DIAMOND BROKER, PHYLLIS A 493.90 ASTHMA 12/21/2008 LEIGHA DIAMOND BROKER, PHYLLIS A 691.0 DIAPER RASH 12/21/2008 LEIGHA DIAMOND BROKER, PHYLLIS A 784.0 HEADACHE 03/08/2009 477.9 ALLERGIC RHINITIS 03/08/2009 488.0 INFLUENZA DUE TO IDENTIFIED DANII INFLUENZA VIRUS 03/08/2009 780.60 fever [as symptom] 03/08/2009 JERAMY FUNEZ MD 477.9 ALLERGIC RHINITIS 03/08/2009 JERAMY FUNEZ MD 488.0 INFLUENZA DUE TO IDENTIFIED DANII INFLUENZA VIRUS 03/08/2009 JERMAY FUNEZ MD 780.60 fever [as symptom] 03/08/2009 JERAMY FUNEZ MD 477.9 ALLERGIC RHINITIS 03/08/2009 JERAMY FUNEZ MD 488.0 INFLUENZA DUE TO IDENTIFIED DANII INFLUENZA VIRUS 03/08/2009 JERAMY FUNEZ MD 780.60 fever [as symptom] 03/08/2009 [place] SARAI BROOKS APRN N 477.9 ALLERGIC RHINITIS 03/08/2009 HARRINGTON CASHERO TAVO BRUMFIELDCY N 488.0 INFLUENZA DUE TO IDENTIFIED DANII INFLUENZA VIRUS 03/08/2009 H[place] SARAI BROOKS APRN N 780.60 fever [as symptom] 03/08/2009 MARISEL ROMANO DOA K 477.9 ALLERGIC RHINITIS 03/08/2009 ROMANO DO LAUREANO K 488.0 INFLUENZA DUE TO IDENTIFIED DANII INFLUENZA VIRUS 03/08/2009 ROMANO DO LAUREANO K 780.60 fever [as symptom] 03/08/2009 ROMANO DO, LAUREANO K 477.9 ALLERGIC RHINITIS 03/08/2009 ROMANO DO, LAUREANO K 488.0 INFLUENZA DUE TO IDENTIFIED DANII INFLUENZA VIRUS 03/08/2009 ROMANO DO, LAUREANO K 780.60 fever [as symptom] 03/08/2009 ROMANO DO, LAUREANO K 477.9 ALLERGIC RHINITIS 03/08/2009 ROMANO DO, LAUREANO K 488.0 INFLUENZA DUE TO IDENTIFIED DANII INFLUENZA VIRUS 03/08/2009 ROMANO DO, LAUREANO K 780.60 fever [as symptom] 03/08/2009 ROMANO DO, LAUREANO K 477.9 ALLERGIC RHINITIS 03/08/2009 ROMANO DO, LAUREANO K 488.0 INFLUENZA DUE TO IDENTIFIED DANII INFLUENZA VIRUS 03/08/2009 ROMANO DO, LAUREANO K 780.60 fever [as symptom] 03/08/2009 ROMANO DO, LAUREANO K 477.9 ALLERGIC RHINITIS 03/08/2009 ROMANO DO, LAUREANO K 488.0 INFLUENZA DUE TO IDENTIFIED DANII INFLUENZA VIRUS 03/08/2009 ROMANO DO, LAUREANO K 780.60 fever [as symptom] 03/08/2009 KAT RONALD BRUMFIELD 477.9 ALLERGIC RHINITIS 03/08/2009 KAT RONALD BRUMFIELD 488.0 INFLUENZA DUE TO IDENTIFIED DANII INFLUENZA VIRUS 03/08/2009 KAT RONALD BRUMFIELD 780.60 fever [as symptom] 03/08/2009 EATON DIAMOND BROKERPINA Kruger L 477.9 ALLERGIC RHINITIS 03/08/2009 EATON DIAMOND BROKERHUONGPINA L 488.0 INFLUENZA DUE TO IDENTIFIED DANII INFLUENZA VIRUS 03/08/2009 EATON DIAMOND BROKERHUONG KrugerSON L 780.60 FEVER [ SYMPTOM] 03/08/2009 ROMANO DO, LAUREANO K 477.9 ALLERGIC RHINITIS 03/08/2009 ROMANO DO, LAUREANO K 488.0 INFLUENZA DUE TO IDENTIFIED DANII INFLUENZA VIRUS 03/08/2009 ROMANO DO, LAUREANO K 780.60 FEVER [ SYMPTOM] 03/08/2009 ROMANO DO, ALUREANO K 477.9 ALLERGIC RHINITIS 03/08/2009 ROMANO DO, LAUREANO K 488.0 INFLUENZA DUE TO IDENTIFIED DANII INFLUENZA VIRUS 03/08/2009 ROMANO DO, LAUREANO K 780.60 FEVER [ SYMPTOM] 03/08/2009 KAT DIAMOND BROKERRONALD Kruger 477.9 ALLERGIC RHINITIS 03/08/2009 KAT DIAMOND BROKERRONALD Kruger 488.0 INFLUENZA DUE TO IDENTIFIED DANII INFLUENZA VIRUS 03/08/2009 KAT DIAMOND BROKERRONALD 780.60 FEVER [ SYMPTOM] 03/08/2009 JUAN ANTONIO DURHAM LAUREANO K 477.9 ALLERGIC RHINITIS 03/08/2009 JUAN ANTONIO DURHAM, LAUREANO K 488.0 INFLUENZA DUE TO IDENTIFIED DANII INFLUENZA VIRUS 03/08/2009 JUAN ANTONIO DURHAM, LAUREANO K 780.60 FEVER [ SYMPTOM] 03/08/2009 EATON DIAMOND BROKER, PINA L 477.9 ALLERGIC RHINITIS 03/08/2009 EATON DIAMOND BROKER, PINA L 488.0 INFLUENZA DUE TO IDENTIFIED DANII INFLUENZA VIRUS 03/08/2009 EATON DIAMOND BROKER, PINA L 780.60 FEVER [ SYMPTOM] 03/08/2009 MADL DIAMOND BROKER, JACK L 477.9 ALLERGIC RHINITIS 03/08/2009 MADL DIAMOND BROKER, JACK L 488.0 INFLUENZA DUE TO IDENTIFIED DANII INFLUENZA VIRUS 03/08/2009 MADL DIAMOND BROKER, JACK L 780.60 FEVER [ SYMPTOM] 03/08/2009 JUAN ANTONIO DURHAM LAUREANO K 477.9 ALLERGIC RHINITIS 03/08/2009 JUAN ANTONIO DURHAM, LAUREANO K 488.0 INFLUENZA DUE TO IDENTIFIED DANII INFLUENZA VIRUS 03/08/2009 JUAN ANTONIO DURHAM, LAUREANO K 780.60 FEVER [ SYMPTOM] 03/08/2009 JUAN ANTONIO DURHAM LAUREANO K 477.9 ALLERGIC RHINITIS 03/08/2009 JUAN ANTONIO DURHAM, LAUREANO K 488.0 INFLUENZA DUE TO IDENTIFIED DANII INFLUENZA VIRUS 03/08/2009 JUAN ANTONIO DURHAM, LAUREANO K 780.60 FEVER [ SYMPTOM] 03/08/2009 MADL DIAMOND BROKER, JACK L 477.9 ALLERGIC RHINITIS 03/08/2009 MADL DIAMOND BROKER, JACK L 488.0 INFLUENZA DUE TO IDENTIFIED DANII INFLUENZA VIRUS 03/08/2009 MADL DIAMOND BROKER, JACK L 780.60 FEVER [ SYMPTOM] 03/08/2009 NAVIN DIAMOND BROKER, MILTON R 477.9 ALLERGIC RHINITIS 03/08/2009 NAVIN DIAMOND BROKER, MILTON R 488.0 INFLUENZA DUE TO IDENTIFIED DANII INFLUENZA VIRUS 03/08/2009 NAVIN DIAMOND BROKER, MILTON R 780.60 FEVER [ SYMPTOM] 03/08/2009 MADL DIAMOND BROKER, JACK L 477.9 ALLERGIC RHINITIS 03/08/2009 MADL DIAMOND BROKER, JACK L 488.0 INFLUENZA DUE TO IDENTIFIED DANII INFLUENZA VIRUS 03/08/2009 MADL DIAMOND BROKER, JACK L 780.60 FEVER [ SYMPTOM] 03/08/2009 MADL DIAMOND BROKER, JACK L 477.9 ALLERGIC RHINITIS 03/08/2009 MADL DIAMOND BROKER, JACK L 488.0 INFLUENZA DUE TO IDENTIFIED DANII INFLUENZA VIRUS 03/08/2009 MADL DIAMOND BROKER, JACK L 780.60 FEVER [ SYMPTOM] 03/08/2009 MADL DIAMOND BROKER, JACK L 477.9 ALLERGIC RHINITIS 03/08/2009 MADL DIAMOND BROKER, JACK L 488.0 INFLUENZA DUE TO IDENTIFIED DANII INFLUENZA VIRUS 03/08/2009 MADL DIAMOND BROKER, JACK L 780.60 FEVER [ SYMPTOM] 03/08/2009 MADL DIAMOND BROKER, JACK L 477.9 ALLERGIC RHINITIS 03/08/2009 MADL DIAMOND BROKER, JACK L 488.0 INFLUENZA DUE TO IDENTIFIED DANII INFLUENZA VIRUS 03/08/2009 MADL DIAMOND BROKER, JACK L 780.60 FEVER [ SYMPTOM] 03/08/2009 SHAIKH DIAMOND BROKER, GEMMA D 477.9 ALLERGIC RHINITIS 03/08/2009 SHAIKH DIAMOND BROKER GEMMA D 488.0 INFLUENZA DUE TO IDENTIFIED DANII INFLUENZA VIRUS 03/08/2009 SHAIKH DIAMOND BROKER, GEMMA D 780.60 FEVER [ SYMPTOM] 03/08/2009 MADL DIAMOND BROKER, JACK L 477.9 ALLERGIC RHINITIS 03/08/2009 MADL DIAMOND BROKER, JACK L 488.0 INFLUENZA DUE TO IDENTIFIED DANII INFLUENZA VIRUS 03/08/2009 MADL DIAMOND BROKER, JACK L 780.60 FEVER [ SYMPTOM] 03/08/2009 MADL DIAMOND BROKER, JACK L 477.9 ALLERGIC RHINITIS 03/08/2009 MADL DIAMOND BROKER, JACK L 488.0 INFLUENZA DUE TO IDENTIFIED DANII INFLUENZA VIRUS 03/08/2009 MADL DIAMOND BROKER, JACK L 780.60 FEVER [ SYMPTOM] 03/08/2009 LEIGHA DIAMOND BROKER, PHYLLIS A 477.9 ALLERGIC RHINITIS 03/08/2009 LEIGHA DIAMOND BROKER, PHYLLIS A 488.0 INFLUENZA DUE TO IDENTIFIED DANII INFLUENZA VIRUS 03/08/2009 LEIGHA DIAMOND BROKER, PHYLLIS A 780.60 fever [as symptom] 04/20/2009 462 Acute Pharyngitis 04/20/2009 466.0 Acute Bronchitis 04/20/2009 JERAMY FUNEZ MD 462 Acute Pharyngitis 04/20/2009 JERAMY FUNEZ MD 466.0 Acute Bronchitis 04/20/2009 JERAMY FUNEZ MD 462 Acute Pharyngitis 04/20/2009 JERAMY FUNEZ MD 466.0 Acute Bronchitis 04/20/2009 HARRINGTONBEAN BROOKS DIAMOND BROKER, SARAI N 462 Acute Pharyngitis 04/20/2009 HARRINGTON CASHERO DIAMOND BROKER, SARAI N 466.0 Acute Bronchitis 04/20/2009 ROMANO DO, LAUREANO K 462 Acute Pharyngitis 04/20/2009 ROMANO DO, LAUREANO K 466.0 Acute Bronchitis 04/20/2009 ROMANO DO, LAUREANO K 462 Acute Pharyngitis 04/20/2009 ROMANO DO, LAUREANO K 466.0 Acute Bronchitis 04/20/2009 ROMANO DO, LAUREANO K 462 Acute Pharyngitis 04/20/2009 ROMANO DO, LAUREANO K 466.0 Acute Bronchitis 04/20/2009 ROMANO DO, LAUREANO K 462 Acute Pharyngitis 04/20/2009 ROMANO DO, LAUREANO K 466.0 Acute Bronchitis 04/20/2009 ROMANO DO, LAUREANO K 462 Acute Pharyngitis 04/20/2009 ROMANO DO, LAUREANO K 466.0 Acute Bronchitis 04/20/2009 RONALD KAT APRN J 462 Acute Pharyngitis 04/20/2009 KAT RONALD BRUMFIELD J 466.0 Acute Bronchitis 04/20/2009 EATON DIAMOND BROKER, PINA L 462 Acute Pharyngitis 04/20/2009 EATON DIAMOND BROKER, PINA L 466.0 Acute Bronchitis 04/20/2009 ROMANO DO, LAUREANO K 462 Acute Pharyngitis 04/20/2009 ROMANO DO, LAUREANO K 466.0 Acute Bronchitis 04/20/2009 ROMANO DO, LAUREANO K 462 Acute Pharyngitis 04/20/2009 ROMANO DO, LAUREANO K 466.0 Acute Bronchitis 04/20/2009 AKT DIAMOND BROKERRONALD Kruger J 462 Acute Pharyngitis 04/20/2009 KAT RONALD BRUMFIELD J 466.0 Acute Bronchitis 04/20/2009 ROMANO DO, LAUREANO K 462 Acute Pharyngitis 04/20/2009 ROMANO DO, LAUREANO K 466.0 Acute Bronchitis 04/20/2009 EATON DIAMOND BROKER, PINA L 462 Acute Pharyngitis 04/20/2009 EATON DIAMOND BROKER, PINA L 466.0 Acute Bronchitis 04/20/2009 MADL DIAMOND BROKER, JACK L 462 Acute Pharyngitis 04/20/2009 MADL DIAMOND BROKER, JACK L 466.0 Acute Bronchitis 04/20/2009 ROMANO DO, LAUREANO K 462 Acute Pharyngitis 04/20/2009 ROMANO DO, LAUREANO K 466.0 Acute Bronchitis 04/20/2009 ROMANO DO, LAUREANO K 462 Acute Pharyngitis 04/20/2009 ROMANO DO, LAUREANO K 466.0 Acute Bronchitis 04/20/2009 MADL DIAMOND BROKER, JACK L 462 Acute Pharyngitis 04/20/2009 MADL DIAMOND BROKER, JACK L 466.0 Acute Bronchitis 04/20/2009 NAVIN DIAMOND BROKER, MILTON R 462 Acute Pharyngitis 04/20/2009 NAVIN DIAMOND BROKER, MILTON R 466.0 Acute Bronchitis 04/20/2009 MADL DIAMOND BROKER, JACK L 462 Acute Pharyngitis 04/20/2009 MADL DIAMOND BROKER, JACK L 466.0 Acute Bronchitis 04/20/2009 MADL DIAMOND BROKER, JACK L 462 Acute Pharyngitis 04/20/2009 MADL DIAMOND BROKER, JACK L 466.0 Acute Bronchitis 04/20/2009 MADL DIAMOND BROKER, JACK L 462 Acute Pharyngitis 04/20/2009 MADL DIAMOND BROKER, JACK L 466.0 Acute Bronchitis 04/20/2009 MADL DIAMOND BROKER, JACK L 462 Acute Pharyngitis 04/20/2009 MADL DIAMOND BROKER, JACK L 466.0 Acute Bronchitis 04/20/2009 SHAIKH DIAMOND BROKER, GEMMA D 462 Acute Pharyngitis 04/20/2009 SHAIKH DIAMOND BROKER GEMMA D 466.0 Acute Bronchitis 04/20/2009 MADL DIAMOND BROKER, JACK L 462 Acute Pharyngitis 04/20/2009 MADL DIAMOND BROKER, JACK L 466.0 Acute Bronchitis 04/20/2009 MADL DIAMOND BROKER, JACK L 462 Acute Pharyngitis 04/20/2009 MADL DIAMOND BROKER, JACK L 466.0 Acute Bronchitis 04/20/2009 LEIGHA DIAMOND BROKER, PHYLLIS A 462 Acute Pharyngitis 04/20/2009 LEIGHA DIAMOND BROKER, PHYLLIS A 466.0 Acute Bronchitis 05/31/2009 461.9 Sinusitis Acute 05/31/2009 530.81 ESOPHAGEAL REFLUX 05/31/2009 JERAMY FUNEZ MD 461.9 Sinusitis Acute 05/31/2009 JERAMY FUNEZ MD 530.81 ESOPHAGEAL REFLUX 05/31/2009 JERAMY FUNEZ MD 461.9 Sinusitis Acute 05/31/2009 JERAMY FUNEZ MD 530.81 ESOPHAGEAL REFLUX 05/31/2009 HARRINGTONBEAN BROOKS APRN, SARAI N 461.9 Sinusitis Acute 05/31/2009 HARRINGTONBEAN BROOKS APRN, SARAI N 530.81 ESOPHAGEAL REFLUX 05/31/2009 ROMANO DO, LAUREANO K 461.9 Sinusitis Acute 05/31/2009 ROMANO DO, LAUREANO K 530.81 ESOPHAGEAL REFLUX 05/31/2009 ROMANO DO, LAUREANO K 461.9 Sinusitis Acute 05/31/2009 ROMANO DO, LAUREANO K 530.81 ESOPHAGEAL REFLUX 05/31/2009 ROMANO DO, LAUREANO K 461.9 Sinusitis Acute 05/31/2009 ROMANO DO, LAUREANO K 530.81 ESOPHAGEAL REFLUX 05/31/2009 ROMANO DO, LAUREANO K 461.9 Sinusitis Acute 05/31/2009 ROMANO DO, LAUREANO K 530.81 ESOPHAGEAL REFLUX 05/31/2009 ROMANO DO, LAUREANO K 461.9 Sinusitis Acute 05/31/2009 ROMANO DO, LAUREANO K 530.81 ESOPHAGEAL REFLUX 05/31/2009 RONALD KAT APRN 461.9 Sinusitis Acute 05/31/2009 RONALD KAT APRN 530.81 ESOPHAGEAL REFLUX 05/31/2009 EATON PINA BRUMFIELD L 461.9 Sinusitis Acute 05/31/2009 EATON DIAMOND BROKERHUONG KrugerSON L 530.81 ESOPHAGEAL REFLUX 05/31/2009 ROMANO DO, LAUREANO K 461.9 Sinusitis Acute 05/31/2009 ROMANO DO, LAUREANO K 530.81 ESOPHAGEAL REFLUX 05/31/2009 ROMANO DO, LAUREANO K 461.9 Sinusitis Acute 05/31/2009 ROMANO DO, LAUREANO K 530.81 ESOPHAGEAL REFLUX 05/31/2009 KAT DIAMOND BROKERRONALD Kruger 461.9 Sinusitis Acute 05/31/2009 KAT DIAMOND BROKER, RONALD J 530.81 ESOPHAGEAL REFLUX 05/31/2009 ROMANO DO, LAUREANO K 461.9 Sinusitis Acute 05/31/2009 ROMANO DO, LAUREANO K 530.81 ESOPHAGEAL REFLUX 05/31/2009 EATON DIAMOND BROKER, PINA L 461.9 Sinusitis Acute 05/31/2009 EATON DIAMOND BROKER, PINA L 530.81 ESOPHAGEAL REFLUX 05/31/2009 MADL DIAMOND BROKER, JACK L 461.9 Sinusitis Acute 05/31/2009 MADL DIAMOND BROKER, JACK L 530.81 ESOPHAGEAL REFLUX 05/31/2009 ROMANO DO, LAUREANO K 461.9 Sinusitis Acute 05/31/2009 ROMANO DO, LAUREANO K 530.81 ESOPHAGEAL REFLUX 05/31/2009 ROMANO DO, LAUREANO K 461.9 Sinusitis Acute 05/31/2009 ROMANO DO, LAUREANO K 530.81 ESOPHAGEAL REFLUX 05/31/2009 MADL DIAMOND BROKER, JACK L 461.9 Sinusitis Acute 05/31/2009 MADL DIAMOND BROKER, JACK L 530.81 ESOPHAGEAL REFLUX 05/31/2009 NAVIN DIAMOND BROKER, MILTON R 461.9 Sinusitis Acute 05/31/2009 NAVIN DIAMOND BROKER, MILTON R 530.81 ESOPHAGEAL REFLUX 05/31/2009 MADL DIAMOND BROKER, JACK L 461.9 Sinusitis Acute 05/31/2009 MADL DIAMOND BROKER, JACK L 530.81 ESOPHAGEAL REFLUX 05/31/2009 MADL DIAMOND BROKER, JACK L 461.9 Sinusitis Acute 05/31/2009 MADL DIAMOND BROKER, JACK L 530.81 ESOPHAGEAL REFLUX 05/31/2009 MADL DIAMOND BROKER, JACK L 461.9 Sinusitis Acute 05/31/2009 MADL DIAMOND BROKER, JACK L 530.81 ESOPHAGEAL REFLUX 05/31/2009 MADL DIAMOND BROKER, JACK L 461.9 Sinusitis Acute 05/31/2009 MADL DIAMOND BROKER, JACK L 530.81 ESOPHAGEAL REFLUX 05/31/2009 SHAIKH DIAMOND BROKER, GEMMA D 461.9 Sinusitis Acute 05/31/2009 SHAIKH DIAMOND BROKER, GEMMA D 530.81 ESOPHAGEAL REFLUX 05/31/2009 MADL DIAMOND BROKER, JACK L 461.9 Sinusitis Acute 05/31/2009 MADL DIAMOND BROKER, JACK L 530.81 ESOPHAGEAL REFLUX 05/31/2009 MADL DIAMOND BROKER, JACK L 461.9 Sinusitis Acute 05/31/2009 MADL DIAMOND BROKER, JACK L 530.81 ESOPHAGEAL REFLUX 05/31/2009 LEIGHA DIAMOND BROKER, PHYLLIS A 461.9 Sinusitis Acute 05/31/2009 LEIGHA DIAMOND BROKER, PHYLLIS A 530.81 ESOPHAGEAL REFLUX 09/30/2009 300.4 DEPRESSION WITH ANXIETY 09/30/2009 JERAMY FUNEZ MD 300.4 DEPRESSION WITH ANXIETY 09/30/2009 JERAMY FUNEZ MD 300.4 DEPRESSION WITH ANXIETY 09/30/2009 SARAI MURRELL APRN 300.4 DEPRESSION WITH ANXIETY 09/30/2009 ROMANO DO, LAUREANO K 300.4 DEPRESSION WITH ANXIETY 09/30/2009 ROMANO DO, LAUREANO K 300.4 DEPRESSION WITH ANXIETY 09/30/2009 ROMANO DO, LAUREANO K 300.4 DEPRESSION WITH ANXIETY 09/30/2009 ROMANO DO, LAUREANO K 300.4 DEPRESSION WITH ANXIETY 09/30/2009 ROMNAO DO, LAUREANO K 300.4 DEPRESSION WITH ANXIETY 09/30/2009 KAT RONALD RBUMFIELD J 300.4 DEPRESSION WITH ANXIETY 09/30/2009 EATYECENIA DIAMOND BROKERPINA Kruger L 300.4 DEPRESSION WITH ANXIETY 09/30/2009 ROMANO DO, LAUREANO K 300.4 DEPRESSION WITH ANXIETY 09/30/2009 ROMANO DO, LAUREANO K 300.4 DEPRESSION WITH ANXIETY 09/30/2009 RONALD KAT APRN J 300.4 DEPRESSION WITH ANXIETY 09/30/2009 ROMANO DO, LAUREANO K 300.4 DEPRESSION WITH ANXIETY 09/30/2009 EATON DIAMOND BROKER, PINA L 300.4 DEPRESSION WITH ANXIETY 09/30/2009 MADL DIAMOND BROKER, JACK L 300.4 DEPRESSION WITH ANXIETY 09/30/2009 ROMANO DO, LAURENAO K 300.4 DEPRESSION WITH ANXIETY 09/30/2009 ROMANO DO, LAUREANO K 300.4 DEPRESSION WITH ANXIETY 09/30/2009 MADL DIAMOND BROKER, JACK L 300.4 DEPRESSION WITH ANXIETY 09/30/2009 NAVIN DIAMOND BROKER, MILTON R 300.4 DEPRESSION WITH ANXIETY 09/30/2009 MADL DIAMOND BROKER, JACK L 300.4 DEPRESSION WITH ANXIETY 09/30/2009 MADL DIAMOND BROKER, JACK L 300.4 DEPRESSION WITH ANXIETY 09/30/2009 MADL DIAMOND BROKER, JACK L 300.4 DEPRESSION WITH ANXIETY 09/30/2009 MADL DIAMOND BROKER, JACK L 300.4 DEPRESSION WITH ANXIETY 09/30/2009 SHAIKH DIAMOND BROKER, GEMMA D 300.4 DEPRESSION WITH ANXIETY 09/30/2009 MADL DIAMOND BROKER, JACK L 300.4 DEPRESSION WITH ANXIETY 09/30/2009 MADL DIAMOND BROKER, JACK L 300.4 DEPRESSION WITH ANXIETY 09/30/2009 LEIGHA DIAMOND BROKER, PHYLLIS A 300.4 DEPRESSION WITH ANXIETY 01/12/2010 616.10 BACTERIAL VAGINOSIS 01/12/2010 795.01 ASCUS PAP 01/12/2010 JERAMY FUNEZ MD 616.10 BACTERIAL VAGINOSIS 01/12/2010 JERAMY FUNEZ MD 795.01 ASCUS PAP 01/12/2010 JERAMY FUNEZ MD 616.10 BACTERIAL VAGINOSIS 01/12/2010 JERAMY FUNEZ MD 795.01 ASCUS PAP 01/12/2010 SARAI MURRELL APRN N 616.10 BACTERIAL VAGINOSIS 01/12/2010 SARAI MURRELL APRN N 795.01 ASCUS PAP 01/12/2010 ROMANO DO, LAUREANO K 616.10 BACTERIAL VAGINOSIS 01/12/2010 ROMANO DO, LAUREANO K 795.01 ASCUS PAP 01/12/2010 ROMANO DO, LAUREANO K 616.10 BACTERIAL VAGINOSIS 01/12/2010 ROMANO DO, LAUREANO K 795.01 ASCUS PAP 01/12/2010 ROMANO DO, LAUREANO K 616.10 BACTERIAL VAGINOSIS 01/12/2010 ROMANO DO, LAUREANO K 795.01 ASCUS PAP 01/12/2010 ROMANO DO, LAUERANO K 616.10 BACTERIAL VAGINOSIS 01/12/2010 ROMANO DO, LAUREANO K 795.01 ASCUS PAP 01/12/2010 ROMANO DO, LAUREANO K 616.10 BACTERIAL VAGINOSIS 01/12/2010 ROMANO DOMARISELA K 795.01 ASCUS PAP 01/12/2010 RONALD KAT APRN 616.10 BACTERIAL VAGINOSIS 01/12/2010 RONALD KAT APRN 795.01 ASCUS PAP 01/12/2010 EATPINA KEENE APRN 616.10 BACTERIAL VAGINOSIS 01/12/2010 PINA MARTELL APRN 795.01 ASCUS PAP 01/12/2010 ROMANO DOMARISELA K 616.10 BACTERIAL VAGINOSIS 01/12/2010 ROMANO DO, LAUREANO K 795.01 ASCUS PAP 01/12/2010 ROMANO DO, LAUREANO K 616.10 BACTERIAL VAGINOSIS 01/12/2010 ROMANO DO, LAUREANO K 795.01 ASCUS PAP 01/12/2010 RONALD KAT APRN 616.10 BACTERIAL VAGINOSIS 01/12/2010 RONALD KAT APRN 795.01 ASCUS PAP 01/12/2010 ROMANO DOMARISELA K 616.10 BACTERIAL VAGINOSIS 01/12/2010 ROMANO DO, LAUREANO K 795.01 ASCUS PAP 01/12/2010 PINA MARTELL APRN L 616.10 BACTERIAL VAGINOSIS 01/12/2010 PINA MARTELL APRN 795.01 ASCUS PAP 01/12/2010 MADL JACK BRUMFIELD L 616.10 BACTERIAL VAGINOSIS 01/12/2010 PRESLEYL PETER BRUMFIELDA L 795.01 ASCUS PAP 01/12/2010 ROMANO DOMARISELA K 616.10 BACTERIAL VAGINOSIS 01/12/2010 ROMANO DO, LAUREANO K 795.01 ASCUS PAP 01/12/2010 ROMANO DO, LAUREANO K 616.10 BACTERIAL VAGINOSIS 01/12/2010 ROMANO DO, LAUREANO K 795.01 ASCUS PAP 01/12/2010 MADL DIAMOND BROKERPETER KrugerA L 616.10 BACTERIAL VAGINOSIS 01/12/2010 MADL DIAMOND BROKERPETER KrugerA L 795.01 ASCUS PAP 01/12/2010 NAVIN BRUMFIELD MILTON R 616.10 BACTERIAL VAGINOSIS 01/12/2010 NAVIN BRUMFIELD MILTON R 795.01 ASCUS PAP 01/12/2010 MADL DIAMOND BROKER, JACK L 616.10 BACTERIAL VAGINOSIS 01/12/2010 MADL DIAMOND BROKER, JACK L 795.01 ASCUS PAP 01/12/2010 MADL DIAMOND BROKER, JACK L 616.10 BACTERIAL VAGINOSIS 01/12/2010 MADL DIAMOND BROKER, JACK L 795.01 ASCUS PAP 01/12/2010 MADL DIAMOND BROKER, JACK L 616.10 BACTERIAL VAGINOSIS 01/12/2010 MADL DIAMOND BROKER, JACK L 795.01 ASCUS PAP 01/12/2010 MADL DIAMOND BROKER, JACK L 616.10 BACTERIAL VAGINOSIS 01/12/2010 MADL DIAMOND BROKER, JACK L 795.01 ASCUS PAP 01/12/2010 SHAIKH DIAMOND BROKER GEMMA D 616.10 BACTERIAL VAGINOSIS 01/12/2010 SHAIKH DIAMOND BROKERMURTAZA KrugerON D 795.01 ASCUS PAP 01/12/2010 MADL DIAMOND BROKER, JACK L 616.10 BACTERIAL VAGINOSIS 01/12/2010 MADL DIAMOND BROKER, JACK L 795.01 ASCUS PAP 01/12/2010 MADL DIAMOND BROKER, JACK L 616.10 BACTERIAL VAGINOSIS 01/12/2010 MADL DIAMOND BROKER, JACK L 795.01 ASCUS PAP 01/12/2010 LEIGHA DIAMOND BROKER, PHYLLIS A 616.10 BACTERIAL VAGINOSIS 01/12/2010 LEIGHA DIAMOND BROKER, PHYLLIS A 795.01 ASCUS PAP 03/20/2010 465.9 Upper Respiratory Infection 03/20/2010 JERAMY FUNEZ MD 465.9 Upper Respiratory Infection 03/20/2010 JERAMY FUNEZ MD 465.9 Upper Respiratory Infection 03/20/2010 SARAI MURRELL APRN 465.9 Upper Respiratory Infection 03/20/2010 ROMANO DO, LAUREANO K 465.9 Upper Respiratory Infection 03/20/2010 ROMANO DO, LAUREANO K 465.9 Upper Respiratory Infection 03/20/2010 ROMANO DO, LAUREANO K 465.9 Upper Respiratory Infection 03/20/2010 ROMANO DO, LAUREANO K 465.9 Upper Respiratory Infection 03/20/2010 ROMANO DO, LAUREANO K 465.9 Upper Respiratory Infection 03/20/2010 KAT DIAMOND BROKER, RONALD J 465.9 Upper Respiratory Infection 03/20/2010 EATON DIAMOND BROKER, PINA L 465.9 Upper Respiratory Infection 03/20/2010 ROMANO DO, LAUREANO K 465.9 Upper Respiratory Infection 03/20/2010 ROMANO DO, LAUREANO K 465.9 Upper Respiratory Infection 03/20/2010 KAT DIAMOND BROKER, RONALD J 465.9 Upper Respiratory Infection 03/20/2010 ROMANO DO, LAUREANO K 465.9 Upper Respiratory Infection 03/20/2010 EATON DIAMOND BROKER, PINA L 465.9 Upper Respiratory Infection 03/20/2010 MADL DIAMOND BROKER, JACK L 465.9 Upper Respiratory Infection 03/20/2010 ROMANO DO, LAUREANO K 465.9 Upper Respiratory Infection 03/20/2010 ROMANO DO, LAUREANO K 465.9 Upper Respiratory Infection 03/20/2010 MADL DIAMOND BROKER, JACK L 465.9 Upper Respiratory Infection 03/20/2010 NAVIN DIAMOND BROKER, MILTON R 465.9 Upper Respiratory Infection 03/20/2010 MADL DIAMOND BROKER, JACK L 465.9 Upper Respiratory Infection 03/20/2010 MADL DIAMOND BROKER, JACK L 465.9 Upper Respiratory Infection 03/20/2010 MADL DIAMOND BROKER, JACK L 465.9 Upper Respiratory Infection 03/20/2010 MADL DIAMOND BROKER, JACK L 465.9 Upper Respiratory Infection 03/20/2010 SHAIKH DIAMOND BROKER, GEMMA D 465.9 Upper Respiratory Infection 03/20/2010 MADL DIAMOND BROKER, JACK L 465.9 Upper Respiratory Infection 03/20/2010 MADL DIAMOND BROKER, JACK L 465.9 Upper Respiratory Infection 03/20/2010 LEIGHA DIAMOND BROKER, PHYLLIS A 465.9 Upper Respiratory Infection 05/09/2010 478.19 nasal passage blockage (stuffiness) 05/09/2010 JERAMY FUNEZ MD 478.19 nasal passage blockage (stuffiness) 05/09/2010 JERAMY FUNEZ MD 478.19 nasal passage blockage (stuffiness) 05/09/2010 SARAI MURRELL APRN 478.19 nasal passage blockage ( stuffiness) 05/09/2010 LAUREANO ROMANO DO K 478.19 nasal passage blockage (stuffiness) 05/09/2010 ROMANO DO, LAUREANO K 478.19 nasal passage blockage (stuffiness) 05/09/2010 ROMANO DO, LAUREANO K 478.19 nasal passage blockage (stuffiness) 05/09/2010 ROMANO DO, LAUREANO K 478.19 nasal passage blockage (stuffiness) 05/09/2010 ROMANO DO, LAUREANO K 478.19 nasal passage blockage (stuffiness) 05/09/2010 RONALD KAT APRN 478.19 nasal passage blockage (stuffiness) 05/09/2010 EATON DIAMOND BROKERHUONGPINA L 478.19 NASAL PASSAGE BLOCKAGE (STUFFINESS) 05/09/2010 ROMANO DO, LAUREANO K 478.19 NASAL PASSAGE BLOCKAGE (STUFFINESS) 05/09/2010 ROMANO DO, LAUREANO K 478.19 NASAL PASSAGE BLOCKAGE (STUFFINESS) 05/09/2010 RONALD KAT APRN 478.19 NASAL PASSAGE BLOCKAGE (STUFFINESS) 05/09/2010 ROMANO DO, LAUREANO K 478.19 NASAL PASSAGE BLOCKAGE (STUFFINESS) 05/09/2010 EATON DIAMOND BROKERHUONG KrugerSON L 478.19 NASAL PASSAGE BLOCKAGE (STUFFINESS) 05/09/2010 MADL DIAMOND BROKER, JACK L 478.19 NASAL PASSAGE BLOCKAGE (STUFFINESS) 05/09/2010 ROMANO DO, LAUREANO K 478.19 NASAL PASSAGE BLOCKAGE (STUFFINESS) 05/09/2010 ROMANO DO, LAUREANO K 478.19 NASAL PASSAGE BLOCKAGE (STUFFINESS) 05/09/2010 MADL DIAMOND BROKER, JACK L 478.19 NASAL PASSAGE BLOCKAGE (STUFFINESS) 05/09/2010 MILTON HOLDEN APRN R 478.19 NASAL PASSAGE BLOCKAGE (STUFFINESS) 05/09/2010 MADL DIAMOND BROKER, JACK L 478.19 NASAL PASSAGE BLOCKAGE (STUFFINESS) 05/09/2010 MADL DIAMOND BROKER, JACK L 478.19 NASAL PASSAGE BLOCKAGE (STUFFINESS) 05/09/2010 MADL DIAMOND BROKER, JACK L 478.19 NASAL PASSAGE BLOCKAGE (STUFFINESS) 05/09/2010 MADL DIAMOND BROKER, JACK L 478.19 NASAL PASSAGE BLOCKAGE (STUFFINESS) 05/09/2010 NEEL BRUMFIELD GEMMA Maritza 478.19 NASAL PASSAGE BLOCKAGE (STUFFINESS) 05/09/2010 MADL DIAMOND BROKER, JACK L 478.19 NASAL PASSAGE BLOCKAGE (STUFFINESS) 05/09/2010 MADL DIAMOND BROKER, JACK L 478.19 NASAL PASSAGE BLOCKAGE (STUFFINESS) 05/09/2010 LEIGHACAILIN BRUMFIELDPHYLLIS A 478.19 nasal passage blockage (stuffiness) 07/26/2010 009.1 GASTROENTERITIS INFECT 07/26/2010 JERAMY FUNEZ MD 009.1 GASTROENTERITIS INFECT 07/26/2010 JERAMY FUNEZ MD 009.1 GASTROENTERITIS INFECT 07/26/2010 SARAI MURRELL APRN 009.1 GASTROENTERITIS INFECT 07/26/2010 ROMANO DO, LAUREANO K 009.1 GASTROENTERITIS INFECT 07/26/2010 ROMANO DO, LAUREANO K 009.1 GASTROENTERITIS INFECT 07/26/2010 ROMANO DO, LAUREANO K 009.1 GASTROENTERITIS INFECT 07/26/2010 ROMANO DO, LAUREANO K 009.1 GASTROENTERITIS INFECT 07/26/2010 ROMANO DO, LAUREANO K 009.1 GASTROENTERITIS INFECT 07/26/2010 RONALD KAT APRN 009.1 GASTROENTERITIS INFECT 07/26/2010 PINA MARTELL APRN L 009.1 GASTROENTERITIS INFECT 07/26/2010 ROMANO DO, LAUREANO K 009.1 GASTROENTERITIS INFECT 07/26/2010 ROMANO DO, LAUREANO K 009.1 GASTROENTERITIS INFECT 07/26/2010 RONALD KAT APRN 009.1 GASTROENTERITIS INFECT 07/26/2010 ROMANO DO, LAUREANO K 009.1 GASTROENTERITIS INFECT 07/26/2010 PINA MARTELL APRN 009.1 GASTROENTERITIS INFECT 07/26/2010 PETER CASTRO APRNA L 009.1 GASTROENTERITIS INFECT 07/26/2010 ROMANO DO, LAUREANO K 009.1 GASTROENTERITIS INFECT 07/26/2010 ROMANO DO, LAUREANO K 009.1 GASTROENTERITIS INFECT 07/26/2010 PETER CASTRO APRNA L 009.1 GASTROENTERITIS INFECT 07/26/2010 MILTON HOLDEN APRN 009.1 GASTROENTERITIS INFECT 07/26/2010 MADPETER Farrell APRNA L 009.1 GASTROENTERITIS INFECT 07/26/2010 PETER CASTRO APRNA L 009.1 GASTROENTERITIS INFECT 07/26/2010 PETER CASTRO APRNA L 009.1 GASTROENTERITIS INFECT 07/26/2010 MATTHEW DIAMOND BROKER, JACK L 009.1 GASTROENTERITIS INFECT 07/26/2010 GEMMA SHAIKH APRN Maritza 009.1 GASTROENTERITIS INFECT 07/26/2010 MATTHEW WHITLEYN, JACK L 009.1 GASTROENTERITIS INFECT 07/26/2010 MATTHEW WHITLEYN, JACK L 009.1 GASTROENTERITIS INFECT 07/26/2010 PHYLLIS AHUJA APRN A 009.1 GASTROENTERITIS INFECT 12/05/2010 477.0 ALLERGIC RHINITIS - POLLEN 12/05/2010 691.8 Atopic Dermatitis 12/05/2010 780.99 loss of pleasure from usual activities (anhedonia) 12/05/2010 JERAMY FUNEZ MD 477.0 ALLERGIC RHINITIS - POLLEN 12/05/2010 JERAMY FUNEZ MD 691.8 Atopic Dermatitis 12/05/2010 JERAMY FUNEZ MD 780.99 loss of pleasure from usual activities ( anhedonia) 12/05/2010 JERAMY FUNEZ MD 477.0 ALLERGIC RHINITIS - POLLEN 12/05/2010 JERAMY FUNEZ MD 691.8 Atopic Dermatitis 12/05/2010 JERAMY FUNEZ MD 780.99 loss of pleasure from usual activities ( anhedonia) 12/05/2010 [place] CASHERO DIAMOND BROKER, SARAI N 477.0 ALLERGIC RHINITIS - POLLEN 12/05/2010 HARR[place] CASHERO DIAMOND BROKER, SARAI N 691.8 Atopic Dermatitis 12/05/2010 H[place] CASHERO DIAMOND BROKER, SARAI N 780.99 loss of pleasure from usual activities (anhedonia) 12/05/2010 ROMANO DO, LAUREANO K 477.0 ALLERGIC RHINITIS - POLLEN 12/05/2010 ROMANO DO, LAUREANO K 691.8 Atopic Dermatitis 12/05/2010 ROMANO DO, LAUREANO K 780.99 loss of pleasure from usual activities ( anhedonia) 12/05/2010 ROMANO DO, LAUREANO K 477.0 ALLERGIC RHINITIS - POLLEN 12/05/2010 ROMANO DO, LAUREANO K 691.8 Atopic Dermatitis 12/05/2010 ROMANO DO, LAUREANO K 780.99 loss of pleasure from usual activities ( anhedonia) 12/05/2010 ROMANO DO, LAUREANO K 477.0 ALLERGIC RHINITIS - POLLEN 12/05/2010 ROMANO DO, LAUREANO K 691.8 Atopic Dermatitis 12/05/2010 ROMANO DO, LAUREANO K 780.99 loss of pleasure from usual activities ( anhedonia) 12/05/2010 ROMANO DO, LAUREANO K 477.0 ALLERGIC RHINITIS - POLLEN 12/05/2010 ROMANO DO, LAUREANO K 691.8 Atopic Dermatitis 12/05/2010 ROMANO DO, LAUREANO K 780.99 loss of pleasure from usual activities ( anhedonia) 12/05/2010 ROMANO DO, LAUREANO K 477.0 ALLERGIC RHINITIS - POLLEN 12/05/2010 ROMANO DO, LAUREANO K 691.8 Atopic Dermatitis 12/05/2010 ROMANO DO, LAUREANO K 780.99 loss of pleasure from usual activities ( anhedonia) 12/05/2010 KAT DIAMOND BROKERRONALD Kruger 477.0 ALLERGIC RHINITIS - POLLEN 12/05/2010 KAT DIAMOND BROKERRONALD Kruger 691.8 Atopic Dermatitis 12/05/2010 KAT DIAMOND BROKERRONALD Kruger 780.99 loss of pleasure from usual activities (anhedonia) 12/05/2010 EATON DIAMOND BROKER PINA L 477.0 ALLERGIC RHINITIS - POLLEN 12/05/2010 EATON DIAMOND BROKER, PINA L 691.8 Atopic Dermatitis 12/05/2010 EATON DIAMOND BROKER, PINA L 780.99 loss of pleasure from usual activities ( anhedonia) 12/05/2010 ROMANO DO, LAUREANO K 477.0 ALLERGIC RHINITIS - POLLEN 12/05/2010 ROMANO DO, LAUREANO K 691.8 Atopic Dermatitis 12/05/2010 ROMANO DO, LAUREANO K 780.99 loss of pleasure from usual activities ( anhedonia) 12/05/2010 ROMANO DO, LAUREANO K 477.0 ALLERGIC RHINITIS - POLLEN 12/05/2010 ROMANO DO, LAUREANO K 691.8 Atopic Dermatitis 12/05/2010 ROMANO DO, LAUREANO K 780.99 loss of pleasure from usual activities ( anhedonia) 12/05/2010 KAT DIAMOND BROKERRONALD J 477.0 ALLERGIC RHINITIS - POLLEN 12/05/2010 KAT DIAMOND BROKERRONALD J 691.8 Atopic Dermatitis 12/05/2010 KAT DIAMOND BROKERRONALD J 780.99 loss of pleasure from usual activities (anhedonia) 12/05/2010 ROMANO DO, LAUREANO K 477.0 ALLERGIC RHINITIS - POLLEN 12/05/2010 ROMANO DO, LAUREANO K 691.8 Atopic Dermatitis 12/05/2010 ROMANO DO, LAUREANO K 780.99 loss of pleasure from usual activities ( anhedonia) 12/05/2010 EATON DIAMOND BROKER, PINA L 477.0 ALLERGIC RHINITIS - POLLEN 12/05/2010 EATON DIAMOND BROKER, PINA L 691.8 Atopic Dermatitis 12/05/2010 EATON DIAMOND BROKER, PINA L 780.99 loss of pleasure from usual activities ( anhedonia) 12/05/2010 MADL DIAMOND BROKER, JACK L 477.0 ALLERGIC RHINITIS - POLLEN 12/05/2010 MADL DIAMOND BROKER, JACK L 691.8 Atopic Dermatitis 12/05/2010 MADL DIAMOND BROKER, JACK L 780.99 loss of pleasure from usual activities ( anhedonia) 12/05/2010 ROMANO DO, LAUREANO K 477.0 ALLERGIC RHINITIS - POLLEN 12/05/2010 ROMANO DO, LAUREANO K 691.8 Atopic Dermatitis 12/05/2010 ROMANO DO, LAUREANO K 780.99 loss of pleasure from usual activities ( anhedonia) 12/05/2010 ROMANO DO, LAUREANO K 477.0 ALLERGIC RHINITIS - POLLEN 12/05/2010 ROMANO DO, LAUREANO K 691.8 Atopic Dermatitis 12/05/2010 ROMANO DO, LAUREANO K 780.99 loss of pleasure from usual activities ( anhedonia) 12/05/2010 MADL DIAMOND BROKER, JACK L 477.0 ALLERGIC RHINITIS - POLLEN 12/05/2010 MADL DIAMOND BROKER, JACK L 691.8 Atopic Dermatitis 12/05/2010 MADL DIAMOND BROKER, JACK L 780.99 loss of pleasure from usual activities ( anhedonia) 12/05/2010 NAVIN DIAMOND BROKER, MILTON R 477.0 ALLERGIC RHINITIS - POLLEN 12/05/2010 NAVIN DIAMOND BROKER, MILTON R 691.8 Atopic Dermatitis 12/05/2010 NAVIN DIAMOND BROKER, MILTON R 780.99 loss of pleasure from usual activities ( anhedonia) 12/05/2010 MADL DIAMOND BROKER, JACK L 477.0 ALLERGIC RHINITIS - POLLEN 12/05/2010 MADL DIAMOND BROKER, JACK L 691.8 Atopic Dermatitis 12/05/2010 MADL DIAMOND BROKER, JACK L 780.99 loss of pleasure from usual activities ( anhedonia) 12/05/2010 MADL DIAMOND BROKER, JACK L 477.0 ALLERGIC RHINITIS - POLLEN 12/05/2010 MADL DIAMOND BROKER, JACK L 691.8 Atopic Dermatitis 12/05/2010 MADL DIAMOND BROKER, JACK L 780.99 loss of pleasure from usual activities ( anhedonia) 12/05/2010 MADL DIAMOND BROKER, JACK L 477.0 ALLERGIC RHINITIS - POLLEN 12/05/2010 MADL DIAMOND BROKER, JACK L 691.8 Atopic Dermatitis 12/05/2010 MADL DIAMOND BROKER, JACK L 780.99 loss of pleasure from usual activities ( anhedonia) 12/05/2010 MADL DIAMOND BROKER, JACK L 477.0 ALLERGIC RHINITIS - POLLEN 12/05/2010 MADL DIAMOND BROKER, JACK L 691.8 Atopic Dermatitis 12/05/2010 MADL DIAMOND BROKER, JACK L 780.99 loss of pleasure from usual activities ( anhedonia) 12/05/2010 GEMMA SHAIKH APRN D 477.0 ALLERGIC RHINITIS - POLLEN 12/05/2010 SHAIKH MURTAZA BRUMFIELDON D 691.8 Atopic Dermatitis 12/05/2010 MURTAZA SHAIKH APRNON D 780.99 loss of pleasure from usual activities ( anhedonia) 12/05/2010 MADL DIAMOND BROKER, JACK L 477.0 ALLERGIC RHINITIS - POLLEN 12/05/2010 MADL DIAMOND BROKER, JACK L 691.8 Atopic Dermatitis 12/05/2010 MADL DIAMOND BROKER, JACK L 780.99 loss of pleasure from usual activities ( anhedonia) 12/05/2010 MADL DIAMOND BROKER, JACK L 477.0 ALLERGIC RHINITIS - POLLEN 12/05/2010 MADL DIAMOND BROKER, JACK L 691.8 Atopic Dermatitis 12/05/2010 MADL DIAMOND BROKER, JACK L 780.99 loss of pleasure from usual activities ( anhedonia) 12/05/2010 LEIGHA DIAMOND BROKER, PHYLLIS A 477.0 ALLERGIC RHINITIS - POLLEN 12/05/2010 LEIGHA DIAMOND BROKER, PHYLLIS A 691.8 Atopic Dermatitis 12/05/2010 LEIGHA DIAMOND BROKER, PHYLLIS A 780.99 loss of pleasure from usual activities ( anhedonia) 01/06/2011 278.02 Overweight 01/06/2011 382.9 Otitis Media 01/06/2011 JERAMY FUNEZ MD 278.02 Overweight 01/06/2011 JERAMY FUNEZ MD 382.9 Otitis Media 01/06/2011 JERAMY FUNEZ MD 278.02 Overweight 01/06/2011 JERAMY FUNEZ MD 382.9 Otitis Media 01/06/2011 H[place] CASHERO DIAMOND BROKER, SARAI N 278.02 Overweight 01/06/2011 [place] GREGERO DIAMOND BROKER, SARAI N 382.9 Otitis Media 01/06/2011 ROMANO DO, LAUREANO K 278.02 Overweight 01/06/2011 ROMANO DO, LAUREANO K 382.9 Otitis Media 01/06/2011 ROMANO DO, LAUREANO K 278.02 Overweight 01/06/2011 ROMANO DO, LAUREANO K 382.9 Otitis Media 01/06/2011 ROMANO DO, LAUREANO K 278.02 Overweight 01/06/2011 ROMANO DO, LAUREANO K 382.9 Otitis Media 01/06/2011 ROMANO DO, LAUREANO K 278.02 Overweight 01/06/2011 ROMANO DO, LAUREANO K 382.9 Otitis Media 01/06/2011 ROMANO DO, LAUREANO K 278.02 Overweight 01/06/2011 ROMANO DO, LAUREANO K 382.9 Otitis Media 01/06/2011 KAT DIAMOND BROKERNYARONALD J 278.02 Overweight 01/06/2011 KAT DIAMOND BROKERRONALD J 382.9 Otitis Media 01/06/2011 EATON DIAMOND BROKER, PINA L 278.02 OVERWEIGHT 01/06/2011 EATON DIAMOND BROKER, PINA L 382.9 Otitis Media 01/06/2011 ROMANO DO, LAUREANO K 278.02 OVERWEIGHT 01/06/2011 ROMANO DO, LAUREANO K 382.9 Otitis Media 01/06/2011 ROMANO DO, LAUREANO K 278.02 OVERWEIGHT 01/06/2011 ROMANO DO, LAUREANO K 382.9 Otitis Media 01/06/2011 KAT DIAMOND BROKERFRANKLINRONALD J 278.02 OVERWEIGHT 01/06/2011 KAT DIAMOND BROKERFRANKLINRONALD J 382.9 Otitis Media 01/06/2011 ROMANO DO, LAUREANO K 278.02 OVERWEIGHT 01/06/2011 ROMANO DO, LAUREANO K 382.9 Otitis Media 01/06/2011 EATON DIAMOND BROKER, PINA L 278.02 OVERWEIGHT 01/06/2011 EATON DIAMOND BROKER, PINA L 382.9 Otitis Media 01/06/2011 MADL DIAMOND BROKER, JACK L 278.02 OVERWEIGHT 01/06/2011 MADL DIAMOND BROKER, JACK L 382.9 Otitis Media 01/06/2011 ROMANO DO, LAUREANO K 278.02 OVERWEIGHT 01/06/2011 ROMANO DO, LAUREANO K 382.9 Otitis Media 01/06/2011 ROMANO DO, LAUREANO K 278.02 OVERWEIGHT 01/06/2011 ROMANO DO, LAUREANO K 382.9 Otitis Media 01/06/2011 MADL DIAMOND BROKER, JACK L 278.02 OVERWEIGHT 01/06/2011 MADL DIAMOND BROKER, JACK L 382.9 Otitis Media 01/06/2011 NAVIN DIAMOND BROKER, MILTON R 278.02 OVERWEIGHT 01/06/2011 NAVIN DIAMOND BROKER, MILTON R 382.9 Otitis Media 01/06/2011 MADL DIAMOND BROKER, JACK L 278.02 OVERWEIGHT 01/06/2011 MADL DIAMOND BROKER, JACK L 382.9 Otitis Media 01/06/2011 MADL DIAMOND BROKER, JACK L 278.02 OVERWEIGHT 01/06/2011 MADL DIAMOND BROKER, JACK L 382.9 Otitis Media 01/06/2011 MADL DIAMOND BROKER, JACK L 278.02 OVERWEIGHT 01/06/2011 MADL DIAMOND BROKER, JACK L 382.9 Otitis Media 01/06/2011 MADL DIAMOND BROKER, JACK L 278.02 OVERWEIGHT 01/06/2011 MADL DIAMOND BROKER, JACK L 382.9 Otitis Media 01/06/2011 SHAIKH DIAMOND BROKERGEMMA Kruger D 278.02 OVERWEIGHT 01/06/2011 NEEL DIAMOND BROKERMURTAZA KrugerON D 382.9 Otitis Media 01/06/2011 MADL DIAMOND BROKER, JACK L 278.02 OVERWEIGHT 01/06/2011 MADL DIAMOND BROKER, JACK L 382.9 Otitis Media 01/06/2011 MADL DIAMOND BROKER, JACK L 278.02 OVERWEIGHT 01/06/2011 MADL DIAMOND BROKER, JACK L 382.9 Otitis Media 01/06/2011 LEIGHA DIAMOND BROKER, PHYLLIS A 278.02 Overweight 01/06/2011 LEIGHA DIAMOND BROKER, PHLYLIS A 382.9 Otitis Media 03/06/2011 296.32 MO DEPRESSIVE RECURRENT MODERATE 03/06/2011 JERAMY FUNEZ MD 296.32 MO DEPRESSIVE RECURRENT MODERATE 03/06/2011 JERAMY FUNEZ MD 296.32 MO DEPRESSIVE RECURRENT MODERATE 03/06/2011 HARRINGTONBEAN GARZACRISTINE WHITLEYN, SARAI N 296.32 MO DEPRESSIVE RECURRENT MODERATE 03/06/2011 ROMANO DO, LAUREANO K 296.32 MO DEPRESSIVE RECURRENT MODERATE 03/06/2011 ROMANO DO, LAUREANO K 296.32 MO DEPRESSIVE RECURRENT MODERATE 03/06/2011 ROMANO DO, LAUREANO K 296.32 MO DEPRESSIVE RECURRENT MODERATE 03/06/2011 ROMANO DO, LAUREANO K 296.32 MO DEPRESSIVE RECURRENT MODERATE 03/06/2011 ROMANO DO, LAUREANO K 296.32 MO DEPRESSIVE RECURRENT MODERATE 03/06/2011 KAT DIAMOND BROKERRONALD Kruger J 296.32 MO DEPRESSIVE RECURRENT MODERATE 03/06/2011 EATON DIAMOND BROKER, PINA L 296.32 MO DEPRESSIVE RECURRENT MODERATE 03/06/2011 ROMANO DO, LAUREANO K 296.32 MO DEPRESSIVE RECURRENT MODERATE 03/06/2011 ROMANO DO, LAUREANO K 296.32 MO DEPRESSIVE RECURRENT MODERATE 03/06/2011 KAT DIAMOND BROKERRONALD Kruger 296.32 MO DEPRESSIVE RECURRENT MODERATE 03/06/2011 ROMANO DO, LAUREANO K 296.32 MO DEPRESSIVE RECURRENT MODERATE 03/06/2011 EATON DIAMOND BROKER, PINA L 296.32 MO DEPRESSIVE RECURRENT MODERATE 03/06/2011 MADL DIAMOND BROKER, JACK L 296.32 MO DEPRESSIVE RECURRENT MODERATE 03/06/2011 ROMANO DO, LAUREANO K 296.32 MO DEPRESSIVE RECURRENT MODERATE 03/06/2011 ROMANO DO, LAUREANO K 296.32 MO DEPRESSIVE RECURRENT MODERATE 03/06/2011 MADL DIAMOND BROKER, JACK L 296.32 MO DEPRESSIVE RECURRENT MODERATE 03/06/2011 NAVIN BRUMFIELD MILTON R 296.32 MO DEPRESSIVE RECURRENT MODERATE 03/06/2011 MADL DIAMOND BROKER, JACK L 296.32 MO DEPRESSIVE RECURRENT MODERATE 03/06/2011 MADL DIAMOND BROKER, JACK L 296.32 MO DEPRESSIVE RECURRENT MODERATE 03/06/2011 MADL DIAMOND BROKER, JACK L 296.32 MO DEPRESSIVE RECURRENT MODERATE 03/06/2011 MADL DIAMOND BROKER, JACK L 296.32 MO DEPRESSIVE RECURRENT MODERATE 03/06/2011 SHAIKH DIAMOND BROKERGEMMA D 296.32 MO DEPRESSIVE RECURRENT MODERATE 03/06/2011 MADL DIAMOND BROKER, JACK L 296.32 MO DEPRESSIVE RECURRENT MODERATE 03/06/2011 MADL DIAMOND BROKER, JACK L 296.32 MO DEPRESSIVE RECURRENT MODERATE 03/06/2011 LEIGHA DIAMOND BROKER, PHYLLIS A 296.32 MO DEPRESSIVE RECURRENT MODERATE 09/28/2011 Ot 276.51 DEHYDRATION 09/28/2011 Ot 787.01 NAUSEA WITH VOMITING 09/28/2011 Ot 787.91 DIARRHEA 09/28/2011 Ot 789.00 ABDOMINAL PAIN, UNSPECIFIED SITE 10/03/2011 525.9 tooth pain 10/03/2011 JERAMY FUNEZ MD 525.9 tooth pain 10/03/2011 JERAMY FUNEZ MD 525.9 tooth pain 10/03/2011 SARAI MURRELL APRN 525.9 tooth pain 10/03/2011 ROMANO DO, LAUREANO K 525.9 tooth pain 10/03/2011 ROMANO DO, LAUREANO K 525.9 tooth pain 10/03/2011 ROMANO DO, LAUREANO K 525.9 tooth pain 10/03/2011 ROMANO DO, LAUREANO K 525.9 tooth pain 10/03/2011 ROMANO DO, LAUREANO K 525.9 tooth pain 10/03/2011 RONALD KAT APRN 525.9 tooth pain 10/03/2011 EATON DIAMOND BROKERPINA Kruger L 525.9 TOOTH PAIN 10/03/2011 ROMANO DO, LAUREANO K 525.9 TOOTH PAIN 10/03/2011 ROMANO DO, LAUREANO K 525.9 TOOTH PAIN 10/03/2011 RONALD KAT APRN 525.9 TOOTH PAIN 10/03/2011 ROMANO DO, LAUREANO K 525.9 TOOTH PAIN 10/03/2011 EATHUONG KEENE APRNSON L 525.9 TOOTH PAIN 10/03/2011 MATTHEW DIAMOND BROKER, JACK L 525.9 TOOTH PAIN 10/03/2011 ROMANO DO, LAUREANO K 525.9 TOOTH PAIN 10/03/2011 ROMANO DO, LAUREANO K 525.9 TOOTH PAIN 10/03/2011 MADL DIAMOND BROKER, JACK L 525.9 TOOTH PAIN 10/03/2011 MILTON HOLDEN APRN 525.9 TOOTH PAIN 10/03/2011 MADL DIAMOND BROKER, JACK L 525.9 TOOTH PAIN 10/03/2011 MADL DIAMOND BROKER, JACK L 525.9 TOOTH PAIN 10/03/2011 MATTHEW DIAMOND BROKER, JACK L 525.9 TOOTH PAIN 10/03/2011 MATTHEW DIAMOND BROKER, JACK L 525.9 TOOTH PAIN 10/03/2011 GEMMA SHAIKH APRN D 525.9 TOOTH PAIN 10/03/2011 MADJami DIAMOND BROKER, JACK L 525.9 TOOTH PAIN 10/03/2011 MATTHEW DIAMOND BROKER, JACK L 525.9 TOOTH PAIN 10/03/2011 LEIGHA BRUMFIELD, PHYLLIS A 525.9 tooth pain 10/18/2011 V25.09 CONTRACEPTIVE COUNSELING - GENERAL 10/18/2011 V65.45 STD COUNSELING 10/18/2011 V74.5 STD SCREEN 10/18/2011 JERAMY FUNEZ MD V25.09 CONTRACEPTIVE COUNSELING - GENERAL 10/18/2011 DEE DEE OCAMPO, JERAMY V65.45 STD COUNSELING 10/18/2011 JERAMY FUNEZ MD V74.5 STD SCREEN 10/18/2011 JERAMY FUNEZ MD V25.09 CONTRACEPTIVE COUNSELING - GENERAL 10/18/2011 JERAMY FUNEZ MD V65.45 STD COUNSELING 10/18/2011 JERAMY FUNEZ MD V74.5 STD SCREEN 10/18/2011 TAVO MURRELL APRNCY N V25.09 CONTRACEPTIVE COUNSELING - GENERAL 10/18/2011 LEN BROOKS APRN SARAI N V65.45 STD COUNSELING 10/18/2011 TAVO MURRELL APRNCY N V74.5 STD SCREEN 10/18/2011 ROMANO DO LAUREANO K V25.09 CONTRACEPTIVE COUNSELING - GENERAL 10/18/2011 ROMANO DO LAUREANO K V65.45 STD COUNSELING 10/18/2011 ROMANO DO LAUREANO K V74.5 STD SCREEN 10/18/2011 ROMANO DO LAUREANO K V25.09 CONTRACEPTIVE COUNSELING - GENERAL 10/18/2011 ROMANO DO LAUREANO K V65.45 STD COUNSELING 10/18/2011 ROMANO DO LAUREANO K V74.5 STD SCREEN 10/18/2011 ROMANO DO LAUREANO K V25.09 CONTRACEPTIVE COUNSELING - GENERAL 10/18/2011 ROMANO DO LAUREANO K V65.45 STD COUNSELING 10/18/2011 ROMANO DO LAUREANO K V74.5 STD SCREEN 10/18/2011 ROMANO DO LAUREANO K V25.09 CONTRACEPTIVE COUNSELING - GENERAL 10/18/2011 ROMANO DO LAUREANO K V65.45 STD COUNSELING 10/18/2011 ROMANO DO LAUREANO K V74.5 STD SCREEN 10/18/2011 ROMANO DO LAUREANO K V25.09 CONTRACEPTIVE COUNSELING - GENERAL 10/18/2011 ROMANO DO LAUREANO K V65.45 STD COUNSELING 10/18/2011 ROMANO DO LAUREANO K V74.5 STD SCREEN 10/18/2011 RONALD KAT APRN V25.09 CONTRACEPTIVE COUNSELING - GENERAL 10/18/2011 RONALD KAT APRN V65.45 STD COUNSELING 10/18/2011 RONALD KAT APRN V74.5 STD SCREEN 10/18/2011 PINA MARTELL APRN V25.09 CONTRACEPTIVE COUNSELING - GENERAL 10/18/2011 PINA MARTELL APRN V65.45 STD COUNSELING 10/18/2011 PINA MARTELL APRN V74.5 STD SCREEN 10/18/2011 ROMANO DO LAUREANO K V25.09 CONTRACEPTIVE COUNSELING - GENERAL 10/18/2011 ROMANO DO LAUREANO K V65.45 STD COUNSELING 10/18/2011 ROMANO DO LAUREANO K V74.5 STD SCREEN 10/18/2011 ROMANO DO LAUREANO K V25.09 CONTRACEPTIVE COUNSELING - GENERAL 10/18/2011 ROMANO DO, LAUREANO K V65.45 STD COUNSELING 10/18/2011 ROMANO DO LAURENAO K V74.5 STD SCREEN 10/18/2011 RONALD KAT APRN V25.09 CONTRACEPTIVE COUNSELING - GENERAL 10/18/2011 RONALD KAT APRN V65.45 STD COUNSELING 10/18/2011 RONALD KAT APRN V74.5 STD SCREEN 10/18/2011 ROMANO DO LAUREANO K V25.09 CONTRACEPTIVE COUNSELING - GENERAL 10/18/2011 ROMANO DO LAUREANO K V65.45 STD COUNSELING 10/18/2011 ROMANO DO LAUREANO K V74.5 STD SCREEN 10/18/2011 PINA MARTELL APRN V25.09 CONTRACEPTIVE COUNSELING - GENERAL 10/18/2011 PINA MARTELL APRN V65.45 STD COUNSELING 10/18/2011 PINA MARTELL APRN V74.5 STD SCREEN 10/18/2011 MADL DIAMOND BROKERJACK Kruger L V25.09 CONTRACEPTIVE COUNSELING - GENERAL 10/18/2011 MADL DIAMOND BROKER, JACK L V65.45 STD COUNSELING 10/18/2011 MADL DIAMOND BROKER, JACK L V74.5 STD SCREEN 10/18/2011 ROMANO MARISEL DURHAMA K V25.09 CONTRACEPTIVE COUNSELING - GENERAL 10/18/2011 ROMANO LAUREANO DURHAM K V65.45 STD COUNSELING 10/18/2011 ROMANO MARISEL DURHAMA K V74.5 STD SCREEN 10/18/2011 ROMANO MARISEL DURHAMA K V25.09 CONTRACEPTIVE COUNSELING - GENERAL 10/18/2011 ROMANO MARISEL DURHAMA K V65.45 STD COUNSELING 10/18/2011 ROMANO MARISEL DURHAMA K V74.5 STD SCREEN 10/18/2011 MADL DIAMOND BROKER, JACK L V25.09 CONTRACEPTIVE COUNSELING - GENERAL 10/18/2011 MADL DIAMOND BROKER, JACK L V65.45 STD COUNSELING 10/18/2011 MADL DIAMOND BROKER, JACK L V74.5 STD SCREEN 10/18/2011 NAVIN DIAMOND BROKER, MILTON R V25.09 CONTRACEPTIVE COUNSELING - GENERAL 10/18/2011 NAVIN DIAMOND BROKER, MILTON R V65.45 STD COUNSELING 10/18/2011 NAVIN DIAMOND BROKER, MILTON R V74.5 STD SCREEN 10/18/2011 MADL DIAMOND BROKER, JACK L V25.09 CONTRACEPTIVE COUNSELING - GENERAL 10/18/2011 MADL DIAMOND BROKER, JACK L V65.45 STD COUNSELING 10/18/2011 MADL DIAMOND BROKER, JACK L V74.5 STD SCREEN 10/18/2011 MADL DIAMOND BROKER, JACK L V25.09 CONTRACEPTIVE COUNSELING - GENERAL 10/18/2011 MADL DIAMOND BROKER, JACK L V65.45 STD COUNSELING 10/18/2011 MADL DIAMOND BROKER, JACK L V74.5 STD SCREEN 10/18/2011 MADL DIAMOND BROKER, JACK L V25.09 CONTRACEPTIVE COUNSELING - GENERAL 10/18/2011 MADL DIAMOND BROKER, JACK L V65.45 STD COUNSELING 10/18/2011 MADL DIAMOND BROKER, JACK L V74.5 STD SCREEN 10/18/2011 MADL DIAMOND BROKER, JACK L V25.09 CONTRACEPTIVE COUNSELING - GENERAL 10/18/2011 MADL DIAMOND BROKER, JACK L V65.45 STD COUNSELING 10/18/2011 MADL DIAMOND BROKER, JACK L V74.5 STD SCREEN 10/18/2011 NEEL WHITLEYSaskia GEMMA D V25.09 CONTRACEPTIVE COUNSELING - GENERAL 10/18/2011 NEEL WHITLEYSaskia GEMMA D V65.45 STD COUNSELING 10/18/2011 NEEL WHITLEYSaskia GEMMA D V74.5 STD SCREEN 10/18/2011 PRESLEYL PETER BRUMFIELDA L V25.09 CONTRACEPTIVE COUNSELING - GENERAL 10/18/2011 PRESLEYL PETER BRUMFIELDA L V65.45 STD COUNSELING 10/18/2011 PRESLEYL DIAMOND BROKER, JACK L V74.5 STD SCREEN 10/18/2011 MADL DIAMOND BROKER, JACK L V25.09 CONTRACEPTIVE COUNSELING - GENERAL 10/18/2011 MATTHEW BRUMFIELD, JACK L V65.45 STD COUNSELING 10/18/2011 PRESLEYL OCTAVIANO, JACK L V74.5 STD SCREEN 10/18/2011 LEIGHA BRUMFIELD PHYLLIS A V25.09 CONTRACEPTIVE COUNSELING - GENERAL 10/18/2011 LEIGHACAILIN BRUMFIELD PHYLLIS A V65.45 STD COUNSELING 10/18/2011 LEIGHA BRUMFIELD, PHYLLIS A V74.5 STD SCREEN 12/01/2011 079.99 VIRAL SYNDROME 12/01/2011 JERAMY FUNEZ MD 079.99 VIRAL SYNDROME 12/01/2011 JERAMY FUNEZ MD 079.99 VIRAL SYNDROME 12/01/2011 SARAI MURRELL APRN 079.99 VIRAL SYNDROME 12/01/2011 LAUREANO ROMANO DO 079.99 VIRAL SYNDROME 12/01/2011 LAUREANO ROMANO DO K 079.99 VIRAL SYNDROME 12/01/2011 LAUREANO ROMANO DO K 079.99 VIRAL SYNDROME 12/01/2011 ROMANO MARISEL DURHAMA K 079.99 VIRAL SYNDROME 12/01/2011 ROMANO MARISEL DURHAMA K 079.99 VIRAL SYNDROME 12/01/2011 RONALD KAT APRN 079.99 VIRAL SYNDROME 12/01/2011 PINA MARTELL APRN 079.99 VIRAL SYNDROME 12/01/2011 ROMANO MARISEL DURHAMA K 079.99 VIRAL SYNDROME 12/01/2011 LAUREANO ROMANO DO K 079.99 VIRAL SYNDROME 12/01/2011 RONALD KAT APRN 079.99 VIRAL SYNDROME 12/01/2011 ROMANO DO, LAUREANO K 079.99 VIRAL SYNDROME 12/01/2011 LUPEON DIAMOND BROKERPINA L 079.99 VIRAL SYNDROME 12/01/2011 MADL DIAMOND BROKER, JACK L 079.99 VIRAL SYNDROME 12/01/2011 ROMANO DO, LAUREANO K 079.99 VIRAL SYNDROME 12/01/2011 ROMANO DO, LAUREANO K 079.99 VIRAL SYNDROME 12/01/2011 MADL DIAMOND BROKER, JACK L 079.99 VIRAL SYNDROME 12/01/2011 NAVIN DIAMOND BROKER, MILTON R 079.99 VIRAL SYNDROME 12/01/2011 MADL DIAMOND BROKER, JACK L 079.99 VIRAL SYNDROME 12/01/2011 MADL DIAMOND BROKER, JACK L 079.99 VIRAL SYNDROME 12/01/2011 MADL DIAMOND BROKER, JACK L 079.99 VIRAL SYNDROME 12/01/2011 MADL DIAMOND BROKER, JACK L 079.99 VIRAL SYNDROME 12/01/2011 SHAIKH DIAMOND BROKERGEMMA Kruger 079.99 VIRAL SYNDROME 12/01/2011 MADL DIAMOND BROKER, JACK L 079.99 VIRAL SYNDROME 12/01/2011 MADL DIAMOND BROKER, JACK L 079.99 VIRAL SYNDROME 12/01/2011 LEIGHA WHITLEYNPHYLLIS A 079.99 VIRAL SYNDROME 12/27/2012 787.91 DIARRHEA 12/27/2012 JERAMY FUNEZ MD 787.91 DIARRHEA 12/27/2012 JERAMY FUNEZ MD 787.91 DIARRHEA 12/27/2012 SARAI MURRELL APRN 787.91 DIARRHEA 12/27/2012 ROMANO DO, LAUREANO K 787.91 DIARRHEA 12/27/2012 ROMANO DO, LAUREANO K 787.91 DIARRHEA 12/27/2012 ROMANO DO, LAUREANO K 787.91 DIARRHEA 12/27/2012 ROMANO DO, LAUREANO K 787.91 DIARRHEA 12/27/2012 ROMANO DO, LAUREANO K 787.91 DIARRHEA 12/27/2012 RONALD KAT APRN 787.91 DIARRHEA 12/27/2012 EATPINA KEENE APRN 787.91 DIARRHEA 12/27/2012 ROMANO DO, LAUREANO K 787.91 DIARRHEA 12/27/2012 ROMANO DO, LAUREANO K 787.91 DIARRHEA 12/27/2012 KAT DIAMOND BROKERRONALD Kruger 787.91 DIARRHEA 12/27/2012 ROMANO DO, LAUREANO K 787.91 DIARRHEA 12/27/2012 EATON DIAMOND BROKER PINA L 787.91 DIARRHEA 12/27/2012 MADL DIAMOND BROKER, JACK L 787.91 DIARRHEA 12/27/2012 ROMANO DO, LAUREANO K 787.91 DIARRHEA 12/27/2012 ROMANO DO, LAUREANO K 787.91 DIARRHEA 12/27/2012 MADL DIAMOND BROKER, JACK L 787.91 DIARRHEA 12/27/2012 NAVIN DIAMOND BROKER, MILTON R 787.91 DIARRHEA 12/27/2012 MADL DIAMOND BROKER, JACK L 787.91 DIARRHEA 12/27/2012 MADL DIAMOND BROKER, JACK L 787.91 DIARRHEA 12/27/2012 MADL DIAMOND BROKER, JACK L 787.91 DIARRHEA 12/27/2012 MADL DIAMOND BROKER, JACK L 787.91 DIARRHEA 12/27/2012 SHAIKH DIAMOND BROKER, GEMMA D 787.91 DIARRHEA 12/27/2012 MADL DIAMOND BROKER, JACK L 787.91 DIARRHEA 12/27/2012 MADL DIAMOND BROKER, JACK L 787.91 DIARRHEA 12/27/2012 LEIGHA DIAMOND BROKER, PHYLLIS A 787.91 DIARRHEA 01/29/2013 JERAMY FUNEZ MD 461.8 Other Acute Sinusitis 01/29/2013 JERAMY FUNEZ MD 461.8 Other Acute Sinusitis 01/29/2013 SARAI MURRELL APRN 461.8 Other Acute Sinusitis 01/29/2013 ROMANO DO, LAUREANO K 461.8 Other Acute Sinusitis 01/29/2013 ROMANO DO, LAUREANO K 461.8 Other Acute Sinusitis 01/29/2013 ROMANO DO, LAUREANO K 461.8 Other Acute Sinusitis 01/29/2013 ROMANO DO, LAUREANO K 461.8 Other Acute Sinusitis 01/29/2013 ROMANO DO, LAUREANO K 461.8 Other Acute Sinusitis 01/29/2013 RONALD KAT APRN 461.8 Other Acute Sinusitis 01/29/2013 EATON DIAMOND BROKERPINA Kruger L 461.8 OTHER ACUTE SINUSITIS 01/29/2013 ROMANO DO, LAUREANO K 461.8 OTHER ACUTE SINUSITIS 01/29/2013 ROMANO DO, LAUREANO K 461.8 OTHER ACUTE SINUSITIS 01/29/2013 RONALD KAT APRN 461.8 OTHER ACUTE SINUSITIS 01/29/2013 ROMANO DO, LAUREANO K 461.8 OTHER ACUTE SINUSITIS 01/29/2013 EATON DIAMOND BROKER PINA L 461.8 OTHER ACUTE SINUSITIS 01/29/2013 MADL DIAMOND BROKER, JACK L 461.8 OTHER ACUTE SINUSITIS 01/29/2013 ROMANO DO, LAUREANO K 461.8 OTHER ACUTE SINUSITIS 01/29/2013 ROMANO DO, LAUREANO K 461.8 OTHER ACUTE SINUSITIS 01/29/2013 MADL DIAMOND BROKER, JACK L 461.8 OTHER ACUTE SINUSITIS 01/29/2013 NAVIN DIAMOND BROKERCHRISMILTON R 461.8 OTHER ACUTE SINUSITIS 01/29/2013 MADL DIAMOND BROKER, JACK L 461.8 OTHER ACUTE SINUSITIS 01/29/2013 MADL DIAMOND BROKER, JACK L 461.8 OTHER ACUTE SINUSITIS 01/29/2013 MADL DIAMOND BROKER, JACK L 461.8 OTHER ACUTE SINUSITIS 01/29/2013 MADL DIAMOND BROKER, JACK L 461.8 OTHER ACUTE SINUSITIS 01/29/2013 NEEL DIAMOND BROKERGEMMA Kruger 461.8 OTHER ACUTE SINUSITIS 01/29/2013 MADL DIAMOND BROKER, JACK L 461.8 OTHER ACUTE SINUSITIS 01/29/2013 MADL DIAMOND BROKER, JACK L 461.8 OTHER ACUTE SINUSITIS 01/29/2013 LEIGHA APRN, PHYLLIS A 461.8 Other Acute Sinusitis 02/23/2013 DEE DEE OCAMPO, JERAMY V04.81 FLU SHOT 02/23/2013 SARAI MURRELL APRN V04.81 FLU SHOT 02/23/2013 ROMANO DO, LAUREANO K V04.81 FLU SHOT 02/23/2013 ROMANO DO, LAUREANO K V04.81 FLU SHOT 02/23/2013 ROMANO DO, LAUREANO K V04.81 FLU SHOT 02/23/2013 ROMANO DO, LAUREANO K V04.81 FLU SHOT 02/23/2013 ROMANO DO, LAUREANO K V04.81 FLU SHOT 02/23/2013 KAT DIAMOND BROKER RONALD J V04.81 FLU SHOT 02/23/2013 EATON DIAMOND BROKER, PINA L V04.81 FLU SHOT 02/23/2013 ROMANO DO, LAUREANO K V04.81 FLU SHOT 02/23/2013 ROMANO DO, LAUREANO K V04.81 FLU SHOT 02/23/2013 KAT DIAMOND BROKERRONALD J V04.81 FLU SHOT 02/23/2013 ROMANO DO, LAUREANO K V04.81 FLU SHOT 02/23/2013 EATON DIAMOND BROKER, PINA L V04.81 FLU SHOT 02/23/2013 MADL DIAMOND BROKER, JACK L V04.81 FLU SHOT 02/23/2013 ROMANO DO, LAUREANO K V04.81 FLU SHOT 02/23/2013 ROMANO DO, LAUREANO K V04.81 FLU SHOT 02/23/2013 MADL DIAMOND BROKER, JACK L V04.81 FLU SHOT 02/23/2013 NAVIN DIAMOND BROKER, MILTON R V04.81 FLU SHOT 02/23/2013 MADL DIAMOND BROKER, JACK L V04.81 FLU SHOT 02/23/2013 MADL DIAMOND BROKER, JACK L V04.81 FLU SHOT 02/23/2013 MADL DIAMOND BROKER, JACK L V04.81 FLU SHOT 02/23/2013 MADL DIAMOND BROKER, JACK L V04.81 FLU SHOT 02/23/2013 SHAIKH DIAMOND BROKER, GEMMA D V04.81 FLU SHOT 02/23/2013 MADL DIAMOND BROKER, JACK L V04.81 FLU SHOT 02/23/2013 MADL DIAMOND BROKER, JACK L V04.81 FLU SHOT 02/23/2013 LEIGHA DIAMOND BROKER, PHYLLIS A V04.81 FLU SHOT 02/25/2013 SARAI MURRELL APRN 380.10 INFECTIVE OTITIS EXTERNA UNSPECIFIED 02/25/2013 JUAN ANTONIO DOLAUREANO K 380.10 INFECTIVE OTITIS EXTERNA UNSPECIFIED 02/25/2013 ROMANO DOLAUREANO K 380.10 INFECTIVE OTITIS EXTERNA UNSPECIFIED 02/25/2013 ROMANO DOLAUREANO K 380.10 INFECTIVE OTITIS EXTERNA UNSPECIFIED 02/25/2013 ROMANO DOLAUREANO K 380.10 INFECTIVE OTITIS EXTERNA UNSPECIFIED 02/25/2013 ROMANO DO, LAUREANO K 380.10 INFECTIVE OTITIS EXTERNA UNSPECIFIED 02/25/2013 KAT DIAMOND BROKERRONALD Kruger 380.10 INFECTIVE OTITIS EXTERNA UNSPECIFIED 02/25/2013 EATON DIAMOND BROKER PINA L 380.10 INFECTIVE OTITIS EXTERNA UNSPECIFIED 02/25/2013 ROMANO DO, LAUREANO K 380.10 INFECTIVE OTITIS EXTERNA UNSPECIFIED 02/25/2013 ROMANO DO, LAUREANO K 380.10 INFECTIVE OTITIS EXTERNA UNSPECIFIED 02/25/2013 KAT DIAMOND BROKERRONALD 380.10 INFECTIVE OTITIS EXTERNA UNSPECIFIED 02/25/2013 ROMANO DO, ALUREANO K 380.10 INFECTIVE OTITIS EXTERNA UNSPECIFIED 02/25/2013 EATON DIAMOND BROKER, PINA L 380.10 INFECTIVE OTITIS EXTERNA UNSPECIFIED 02/25/2013 MADL DIAMOND BROKER, JACK L 380.10 INFECTIVE OTITIS EXTERNA UNSPECIFIED 02/25/2013 ROMANO DO, LAUREANO K 380.10 INFECTIVE OTITIS EXTERNA UNSPECIFIED 02/25/2013 ROMANO DO, LAUREANO K 380.10 INFECTIVE OTITIS EXTERNA UNSPECIFIED 02/25/2013 MADL DIAMOND BROKER, JACK L 380.10 INFECTIVE OTITIS EXTERNA UNSPECIFIED 02/25/2013 NAVIN DIAMOND BROKERCHRISMILTON R 380.10 INFECTIVE OTITIS EXTERNA UNSPECIFIED 02/25/2013 MADL DIAMOND BROKER, JACK L 380.10 INFECTIVE OTITIS EXTERNA UNSPECIFIED 02/25/2013 MADL DIAMOND BROKER, JACK L 380.10 INFECTIVE OTITIS EXTERNA UNSPECIFIED 02/25/2013 MADL DIAMOND BROKER, JACK L 380.10 INFECTIVE OTITIS EXTERNA UNSPECIFIED 02/25/2013 MADL DIAMOND BROKER, JACK L 380.10 INFECTIVE OTITIS EXTERNA UNSPECIFIED 02/25/2013 SHAIKH DIAMOND BROKER GEMMA D 380.10 INFECTIVE OTITIS EXTERNA UNSPECIFIED 02/25/2013 MADL DIAMOND BROKER, JACK L 380.10 INFECTIVE OTITIS EXTERNA UNSPECIFIED 02/25/2013 MADL DIAMOND BROKER, JACK L 380.10 INFECTIVE OTITIS EXTERNA UNSPECIFIED 02/25/2013 LEIGHA DIAMOND BROKER PHYLLIS A 380.10 INFECTIVE OTITIS EXTERNA UNSPECIFIED 04/21/2013 ROMANO DO, LAUREANO K 462 ACUTE PHARYNGITIS 04/21/2013 ROMANO DO, LAUREANO K 462 ACUTE PHARYNGITIS 04/21/2013 ROMANO DO, LAUREANO K 462 ACUTE PHARYNGITIS 04/21/2013 ROMANO DO, LAUREANO K 462 ACUTE PHARYNGITIS 04/21/2013 RONALD KAT APRN 462 ACUTE PHARYNGITIS 04/21/2013 EATON DIAMOND BROKERPINA Kruger L 462 ACUTE PHARYNGITIS 04/21/2013 ROMANO DO, LAUREANO K 462 ACUTE PHARYNGITIS 04/21/2013 ROMANO DO, LAUREANO K 462 ACUTE PHARYNGITIS 04/21/2013 RONALD KAT APRN 462 ACUTE PHARYNGITIS 04/21/2013 ROMANO DO, LAUREANO K 462 ACUTE PHARYNGITIS 04/21/2013 JAYSHREE DIAMOND BROKERPINA Kruger L 462 ACUTE PHARYNGITIS 04/21/2013 MADL DIAMOND BROKER, JACK L 462 ACUTE PHARYNGITIS 04/21/2013 ROMANO DO, LAUREANO K 462 ACUTE PHARYNGITIS 04/21/2013 ROMANO DO, LAUREANO K 462 ACUTE PHARYNGITIS 04/21/2013 MADL DIAMOND BROKER, JACK L 462 ACUTE PHARYNGITIS 04/21/2013 NAVIN DIAMOND BROKER, MILTON R 462 ACUTE PHARYNGITIS 04/21/2013 MADL DIAMOND BROKER, JACK L 462 ACUTE PHARYNGITIS 04/21/2013 MADL DIAMOND BROKER, JACK L 462 ACUTE PHARYNGITIS 04/21/2013 MADL DIAMOND BROKER, JACK L 462 ACUTE PHARYNGITIS 04/21/2013 MADL DIAMOND BROKER, JACK L 462 ACUTE PHARYNGITIS 04/21/2013 NEEL DIAMOND BROKERGEMMA Kruger D 462 ACUTE PHARYNGITIS 04/21/2013 MADL DIAMOND BROKER, JACK L 462 ACUTE PHARYNGITIS 04/21/2013 MADL DIAMOND BROKER, JACK L 462 ACUTE PHARYNGITIS 04/21/2013 LEIGHA WHITLEYNINESSAPHYLLIS A 462 ACUTE PHARYNGITIS 05/15/2013 ROMANO DO, LAUREANO K 381.02 ACUTE MUCOID OTITIS MEDIA 05/15/2013 ROMANO DO, LAUREANO K 381.02 ACUTE MUCOID OTITIS MEDIA 05/15/2013 ROMANO DO, LAUREANO K 381.02 ACUTE MUCOID OTITIS MEDIA 05/15/2013 KAT DIAMOND BROKERRONALD Kruger 381.02 ACUTE MUCOID OTITIS MEDIA 05/15/2013 EATON DIAMOND BROKER, PINA L 381.02 ACUTE MUCOID OTITIS MEDIA 05/15/2013 ROMANO DO, LAUREANO K 381.02 ACUTE MUCOID OTITIS MEDIA 05/15/2013 ROMANO DO, LAUREANO K 381.02 ACUTE MUCOID OTITIS MEDIA 05/15/2013 KAT DIAMOND BROKERRONALD Kruger 381.02 ACUTE MUCOID OTITIS MEDIA 05/15/2013 ROMANO DO, LAUREANO K 381.02 ACUTE MUCOID OTITIS MEDIA 05/15/2013 EATON DIAMOND BROKER PINA L 381.02 ACUTE MUCOID OTITIS MEDIA 05/15/2013 MADL DIAMOND BROKER, JACK L 381.02 ACUTE MUCOID OTITIS MEDIA 05/15/2013 ROMANO DO, LAUREANO K 381.02 ACUTE MUCOID OTITIS MEDIA 05/15/2013 ROMANO DO, LAUREANO K 381.02 ACUTE MUCOID OTITIS MEDIA 05/15/2013 MADL DIAMOND BROKER, JACK L 381.02 ACUTE MUCOID OTITIS MEDIA 05/15/2013 NAVIN BRUMFIELD MILTON R 381.02 ACUTE MUCOID OTITIS MEDIA 05/15/2013 MADL DIAMOND BROKER, JACK L 381.02 ACUTE MUCOID OTITIS MEDIA 05/15/2013 MADL DIAMOND BROKER, JACK L 381.02 ACUTE MUCOID OTITIS MEDIA 05/15/2013 MADL DIAMOND BROKER, JACK L 381.02 ACUTE MUCOID OTITIS MEDIA 05/15/2013 MADL DIAMOND BROKER, JACK L 381.02 ACUTE MUCOID OTITIS MEDIA 05/15/2013 GEMMA SHAIKH APRN 381.02 ACUTE MUCOID OTITIS MEDIA 05/15/2013 MADL DIAMOND BROKER, JACK L 381.02 ACUTE MUCOID OTITIS MEDIA 05/15/2013 MADL DIAMOND BROKER, JACK L 381.02 ACUTE MUCOID OTITIS MEDIA 05/15/2013 LEIGHA BRUMFIELD PHYLLIS A 381.02 ACUTE MUCOID OTITIS MEDIA 07/14/2013 ROMANO DO, LAUREANO K 112.1 CANDIDIASIS VAGINAL 07/14/2013 ROMANO DO, LAUREANO K 466.0 ACUTE BRONCHITIS 07/14/2013 ROMANO DO, LAUREANO K 477.9 ALLERGIC RHINITIS 07/14/2013 ROMANO DO, LAUREANO K 112.1 CANDIDIASIS VAGINAL 07/14/2013 ROMANO DO, LAUREANO K 466.0 ACUTE BRONCHITIS 07/14/2013 ROMANO DO, LAUREANO K 477.9 ALLERGIC RHINITIS 07/14/2013 KAT DIAMOND BROKERRONALD Kruger J 112.1 CANDIDIASIS VAGINAL 07/14/2013 KAT DIAMOND BROKERRONALD J 466.0 ACUTE BRONCHITIS 07/14/2013 KAT DIAMOND BROKERRONALD J 477.9 ALLERGIC RHINITIS 07/14/2013 EATON DIAMOND BROKER, PINA L 112.1 CANDIDIASIS VAGINAL 07/14/2013 EATON DIAMOND BROKER, PINA L 466.0 ACUTE BRONCHITIS 07/14/2013 EATON DIAMOND BROKER, PINA L 477.9 ALLERGIC RHINITIS 07/14/2013 ROMANO DO, LAUREANO K 112.1 CANDIDIASIS VAGINAL 07/14/2013 ROMANO DO, LAUREANO K 466.0 ACUTE BRONCHITIS 07/14/2013 ROMANO DO, LAUREANO K 477.9 ALLERGIC RHINITIS 07/14/2013 ROMANO DO, LAUREANO K 112.1 CANDIDIASIS VAGINAL 07/14/2013 ROMANO DO, LAUREANO K 466.0 ACUTE BRONCHITIS 07/14/2013 ROMANO DO, LAUREANO K 477.9 ALLERGIC RHINITIS 07/14/2013 KAT DIAMOND BROKERRONALD Kruger J 112.1 CANDIDIASIS VAGINAL 07/14/2013 KAT DIAMOND BROKERRONALD Kruger 466.0 ACUTE BRONCHITIS 07/14/2013 KAT DIAMOND BROKERRONALD Kruger 477.9 ALLERGIC RHINITIS 07/14/2013 ROMANO DO, LAUREANO K 112.1 CANDIDIASIS VAGINAL 07/14/2013 ROMANO DO, LAUREANO K 466.0 ACUTE BRONCHITIS 07/14/2013 ROMANO DO, LAUREANO K 477.9 ALLERGIC RHINITIS 07/14/2013 EATON DIAMOND BROKER, PINA L 112.1 CANDIDIASIS VAGINAL 07/14/2013 EATON DIAMOND BROKER, PINA L 466.0 ACUTE BRONCHITIS 07/14/2013 EATON DIAMOND BROKER, PINA L 477.9 ALLERGIC RHINITIS 07/14/2013 MADL DIAMOND BROKER, JACK L 112.1 CANDIDIASIS VAGINAL 07/14/2013 MADL DIAMOND BROKER, JACK L 466.0 ACUTE BRONCHITIS 07/14/2013 MADL DIAMOND BROKER, JACK L 477.9 ALLERGIC RHINITIS 07/14/2013 ROMANO DO, LAUREANO K 112.1 CANDIDIASIS VAGINAL 07/14/2013 ROMANO DO, LAUREANO K 466.0 ACUTE BRONCHITIS 07/14/2013 ROMANO DO, LAUREANO K 477.9 ALLERGIC RHINITIS 07/14/2013 ROMANO DO, LAUREANO K 112.1 CANDIDIASIS VAGINAL 07/14/2013 ROMANO DO, LAUREANO K 466.0 ACUTE BRONCHITIS 07/14/2013 ROMANO DO, LAUREANO K 477.9 ALLERGIC RHINITIS 07/14/2013 MADL DIAMOND BROKER, JACK L 112.1 CANDIDIASIS VAGINAL 07/14/2013 MADL DIAMOND BROKER, JAKC L 466.0 ACUTE BRONCHITIS 07/14/2013 MADL DIAMOND BROKER, JACK L 477.9 ALLERGIC RHINITIS 07/14/2013 NAVIN DIAMOND BROKER, MILTON R 112.1 CANDIDIASIS VAGINAL 07/14/2013 NAVIN DIAMOND BROKER, MILTON R 466.0 ACUTE BRONCHITIS 07/14/2013 NAVIN DIAMOND BROKER, MILTON R 477.9 ALLERGIC RHINITIS 07/14/2013 MADL DIAMOND BROKER, JACK L 112.1 CANDIDIASIS VAGINAL 07/14/2013 MADL DIAMOND BROKER, JACK L 466.0 ACUTE BRONCHITIS 07/14/2013 MADL DIAMOND BROKER, JACK L 477.9 ALLERGIC RHINITIS 07/14/2013 MADL DIAMOND BROKER, JACK L 112.1 CANDIDIASIS VAGINAL 07/14/2013 MADL DIAMOND BROKER, JACK L 466.0 ACUTE BRONCHITIS 07/14/2013 MADL DIAMOND BROKER, JACK L 477.9 ALLERGIC RHINITIS 07/14/2013 MADL DIAMOND BROKER, JACK L 112.1 CANDIDIASIS VAGINAL 07/14/2013 MADL DIAMOND BROKER, JACK L 466.0 ACUTE BRONCHITIS 07/14/2013 MADL DIAMOND BROKER, JACK L 477.9 ALLERGIC RHINITIS 07/14/2013 MADL DIAMOND BROKER, JACK L 112.1 CANDIDIASIS VAGINAL 07/14/2013 MADL DIAMOND BROKER, JACK L 466.0 ACUTE BRONCHITIS 07/14/2013 MADL DIAMOND BROKER, JACK L 477.9 ALLERGIC RHINITIS 07/14/2013 SHAIKH DIAMOND BROKERGEMMA Kruger 112.1 CANDIDIASIS VAGINAL 07/14/2013 SHAIKH DIAMOND BROKERGEMMA Kruger 466.0 ACUTE BRONCHITIS 07/14/2013 SHAIKH DIAMOND BROKERGEMMA Kruger 477.9 ALLERGIC RHINITIS 07/14/2013 MADL DIAMOND BROKER, JACK L 112.1 CANDIDIASIS VAGINAL 07/14/2013 MADL DIAMOND BROKER, JACK L 466.0 ACUTE BRONCHITIS 07/14/2013 MADL DIAMOND BROKER, JACK L 477.9 ALLERGIC RHINITIS 07/14/2013 MADL DIAMOND BROKER, JACK L 112.1 CANDIDIASIS VAGINAL 07/14/2013 MADL DIAMOND BROKER, JACK L 466.0 ACUTE BRONCHITIS 07/14/2013 MADL DIAMOND BROKER, JACK L 477.9 ALLERGIC RHINITIS 07/14/2013 LEIGHA DIAMOND BROKER, PHYLLIS A 112.1 CANDIDIASIS OF VULVA AND VAGINA 07/14/2013 LEIGHA DIAMOND BROKER, PHYLLIS A 466.0 ACUTE BRONCHITIS 07/14/2013 LEIGHA DIAMOND BROKER, PHYLLIS A 477.9 ALLERGIC RHINITIS CAUSE UNSPECIFIED 07/31/2013 LAUREANO ROMANO DO V25.02 CONTRACEPTION - ANY METHOD 07/31/2013 LAUREANO ROMANO DO V76.10 visit for: screening exam malignant neoplasm breast 07/31/2013 RONALD KAT APRN V25.02 CONTRACEPTION - ANY METHOD 07/31/2013 RONALD KAT APRN V76.10 visit for: screening exam malignant neoplasm breast 07/31/2013 PINA MARTELL APRN V25.02 CONTRACEPTION - ANY METHOD 07/31/2013 PINA MARTELL APRN V76.10 visit for: screening exam malignant neoplasm breast 07/31/2013 LAUREANO ROMANO DO V25.02 CONTRACEPTION - ANY METHOD 07/31/2013 LAUREANO ROMANO DO V76.10 visit for: screening exam malignant neoplasm breast 07/31/2013 LAUREANO ROMANO DO V25.02 CONTRACEPTION - ANY METHOD 07/31/2013 LAUREANO ROMANO DO V76.10 visit for: screening exam malignant neoplasm breast 07/31/2013 RONALD KAT APRN V25.02 CONTRACEPTION - ANY METHOD 07/31/2013 RONALD KAT APRN V76.10 visit for: screening exam malignant neoplasm breast 07/31/2013 LAUREANO ROMANO DO V25.02 CONTRACEPTION - ANY METHOD 07/31/2013 LAUREANO ROMANO DO V76.10 visit for: screening exam malignant neoplasm breast 07/31/2013 PINA MARTELL APRN V25.02 CONTRACEPTION - ANY METHOD 07/31/2013 PINA MARTELL APRN V76.10 visit for: screening exam malignant neoplasm breast 07/31/2013 PRESLEYJami DIAMOND BROKER, JACK L V25.02 CONTRACEPTION - ANY METHOD 07/31/2013 PETER CASTRO APRNA L V76.10 visit for: screening exam malignant neoplasm breast 07/31/2013 ROMANO DO LAUREANO K V25.02 CONTRACEPTION - ANY METHOD 07/31/2013 ROMANO DO LAUREANO K V76.10 visit for: screening exam malignant neoplasm breast 07/31/2013 ROMANO DO LAUREANO K V25.02 CONTRACEPTION - ANY METHOD 07/31/2013 ROMANO DO LAUREANO K V76.10 visit for: screening exam malignant neoplasm breast 07/31/2013 PETER CASTRO APRNA L V25.02 CONTRACEPTION - ANY METHOD 07/31/2013 FREDERIC CASTRO APRNNYA L V76.10 visit for: screening exam malignant neoplasm breast 07/31/2013 NAVIN BRUMFIELD MILTON R V25.02 CONTRACEPTION - ANY METHOD 07/31/2013 NAVIN BRUMFIELD MILTON R V76.10 visit for: screening exam malignant neoplasm breast 07/31/2013 PETER CASTRO APRNA L V25.02 CONTRACEPTION - ANY METHOD 07/31/2013 PETER CASTRO APRNA L V76.10 visit for: screening exam malignant neoplasm breast 07/31/2013 FREDERIC CASTRO APRNNYA L V25.02 CONTRACEPTION - ANY METHOD 07/31/2013 FREDERIC CASTRO APRNNYA L V76.10 visit for: screening exam malignant neoplasm breast 07/31/2013 PETER CASTRO APRNA L V25.02 CONTRACEPTION - ANY METHOD 07/31/2013 FREDERIC CASTRO APRNNYA L V76.10 visit for: screening exam malignant neoplasm breast 07/31/2013 PETER CASTRO APRNA L V25.02 CONTRACEPTION - ANY METHOD 07/31/2013 FREDERIC CASTRO APRNNYA L V76.10 visit for: screening exam malignant neoplasm breast 07/31/2013 GEMMA SHAIKH APRN V25.02 CONTRACEPTION - ANY METHOD 07/31/2013 GEMMA SHAIKH APRN V76.10 visit for: screening exam malignant neoplasm breast 07/31/2013 MADL DIAMOND BROKER, JACK L V25.02 CONTRACEPTION - ANY METHOD 07/31/2013 MADL DIAMOND BROKER, JACK L V76.10 visit for: screening exam malignant neoplasm breast 07/31/2013 MADL DIAMOND BROKER, JACK L V25.02 CONTRACEPTION - ANY METHOD 07/31/2013 MADL DIAMOND BROKER, JACK L V76.10 visit for: screening exam malignant neoplasm breast 07/31/2013 LEIGHA DIAMOND BROKER, PHYLLIS A V25.02 CONTRACEPTION - ANY METHOD 07/31/2013 LEIGHA DIAMOND BROKER, PHYLLIS A V76.10 BREAST CANCER SCREENING 09/02/2013 EATON DIAMOND BROKER, PINA L 465.9 ACUTE UPPER RESPIRATORY INFECTIONS OF UNSPECIFIED SITE 09/02/2013 ROMANO DO, LAUREANO K 465.9 ACUTE UPPER RESPIRATORY INFECTIONS OF UNSPECIFIED SITE 09/02/2013 ROMANO DO, LAUREANO K 465.9 ACUTE UPPER RESPIRATORY INFECTIONS OF UNSPECIFIED SITE 09/02/2013 RONALD KAT APRN 465.9 ACUTE UPPER RESPIRATORY INFECTIONS OF UNSPECIFIED SITE 09/02/2013 ROMANO DO, LAUREANO K 465.9 ACUTE UPPER RESPIRATORY INFECTIONS OF UNSPECIFIED SITE 09/02/2013 EATON DIAMOND BROKER, PINA L 465.9 ACUTE UPPER RESPIRATORY INFECTIONS OF UNSPECIFIED SITE 09/02/2013 MADL DIAMOND BROKER, JACK L 465.9 ACUTE UPPER RESPIRATORY INFECTIONS OF UNSPECIFIED SITE 09/02/2013 ROMANO DO, LAUREANO K 465.9 ACUTE UPPER RESPIRATORY INFECTIONS OF UNSPECIFIED SITE 09/02/2013 ROMANO DO, LAUREANO K 465.9 ACUTE UPPER RESPIRATORY INFECTIONS OF UNSPECIFIED SITE 09/02/2013 MADL DIAMOND BROKER, JACK L 465.9 ACUTE UPPER RESPIRATORY INFECTIONS OF UNSPECIFIED SITE 09/02/2013 MILTON HOLDEN APRN 465.9 ACUTE UPPER RESPIRATORY INFECTIONS OF UNSPECIFIED SITE 09/02/2013 MADL DIAMOND BROKER, JACK L 465.9 ACUTE UPPER RESPIRATORY INFECTIONS OF UNSPECIFIED SITE 09/02/2013 MADL DIAMOND BROKER, JACK L 465.9 ACUTE UPPER RESPIRATORY INFECTIONS OF UNSPECIFIED SITE 09/02/2013 MADL DIAMOND BROKER, JACK L 465.9 ACUTE UPPER RESPIRATORY INFECTIONS OF UNSPECIFIED SITE 09/02/2013 MADL DIAMOND BROKER, JACK L 465.9 ACUTE UPPER RESPIRATORY INFECTIONS OF UNSPECIFIED SITE 09/02/2013 GEMMA SHAIKH APRN 465.9 ACUTE UPPER RESPIRATORY INFECTIONS OF UNSPECIFIED SITE 09/02/2013 MADL DIAMOND BROKER, JACK L 465.9 ACUTE UPPER RESPIRATORY INFECTIONS OF UNSPECIFIED SITE 09/02/2013 MADL DIAMOND BROKER, JACK L 465.9 ACUTE UPPER RESPIRATORY INFECTIONS OF UNSPECIFIED SITE 09/02/2013 LEIGHAPHYLLIS Kruger APRN A 465.9 ACUTE UPPER RESPIRATORY INFECTIONS OF UNSPECIFIED SITE 12/19/2013 ROMANO DO, LAUREANO K 788.1 pain during urination (dysuria) 12/19/2013 RONALD KAT APRN 788.1 pain during urination (dysuria) 12/19/2013 ROMANO DO, LAUREANO K 788.1 pain during urination (dysuria) 12/19/2013 LUPEON OCTAVIANO PINA L 788.1 pain during urination (dysuria) 12/19/2013 MADL DIAMOND BROKER, JACK L 788.1 pain during urination (dysuria) 12/19/2013 ROMANO DO LAUREANO K 788.1 pain during urination (dysuria) 12/19/2013 ROMANO DO, LAUREANO K 788.1 pain during urination (dysuria) 12/19/2013 MADL DIAMOND BROKER, JACK L 788.1 pain during urination (dysuria) 12/19/2013 MILTON HOLDEN APRN R 788.1 pain during urination (dysuria) 12/19/2013 MADL DIAMOND BROKER, JACK L 788.1 pain during urination (dysuria) 12/19/2013 MADL DIAMOND BROKER, JACK L 788.1 pain during urination (dysuria) 12/19/2013 MADL DIAMOND BROKER, JACK L 788.1 pain during urination (dysuria) 12/19/2013 MADL DIAMOND BROKER, JACK L 788.1 pain during urination (dysuria) 12/19/2013 GEMMA SHAIKH APRN 788.1 pain during urination (dysuria) 12/19/2013 MADL DIAMOND BROKER, JACK L 788.1 pain during urination (dysuria) 12/19/2013 MADL DIAMOND BROKER, JACK L 788.1 pain during urination (dysuria) 12/19/2013 LEIGHA DIAMOND BROKER, PHYLLIS A 788.1 pain during urination (dysuria) 02/04/2014 ROMANO DO, LAUREANO K 466.0 BRONCHITIS, ACUTE 02/04/2014 EATON DIAMOND BROKER, PINA L 466.0 BRONCHITIS, ACUTE 02/04/2014 MADL DIAMOND BROKER, JACK L 466.0 BRONCHITIS, ACUTE 02/04/2014 ROMANO DO, LAUREANO K 466.0 BRONCHITIS, ACUTE 02/04/2014 ROMANO DO, LAUREANO K 466.0 BRONCHITIS, ACUTE 02/04/2014 MADL DIAMOND BROKER, JACK L 466.0 BRONCHITIS, ACUTE 02/04/2014 NAVIN DIAMOND BROKER, MILTON R 466.0 BRONCHITIS, ACUTE 02/04/2014 MADL DIAMOND BROKER, JACK L 466.0 BRONCHITIS, ACUTE 02/04/2014 MADL DIAMOND BROKER, JACK L 466.0 BRONCHITIS, ACUTE 02/04/2014 MADL DIAMOND BROKER, JACK L 466.0 BRONCHITIS, ACUTE 02/04/2014 MADL DIAMOND BROKER, JACK L 466.0 BRONCHITIS, ACUTE 02/04/2014 SHAIKH DIAMOND BROKER, GEMMA D 466.0 BRONCHITIS, ACUTE 02/04/2014 MADL DIAMOND BROKER, JACK L 466.0 BRONCHITIS, ACUTE 02/04/2014 MADL DIAMOND BROKER, JACK L 466.0 BRONCHITIS, ACUTE 02/04/2014 LEIGHA DIAMOND BROKER, PHYLLIS A 466.0 BRONCHITIS, ACUTE 03/10/2014 EATON DIAMOND BROKER, PINA L 493.92 ASTHMA (ACUTE) EXACERBATION 03/10/2014 EATON DIAMOND BROKER, PINA L V15.81 PERSONAL HISTORY OF NONCOMPLIANCE WITH MEDICAL TREATMENT PRESENTING HAZARDS TO HEALTH 03/10/2014 MADL DIAMOND BROKER, JACK L 493.92 ASTHMA (ACUTE) EXACERBATION 03/10/2014 MADL DIAMOND BROKER, JACK L V15.81 PERSONAL HISTORY OF NONCOMPLIANCE WITH MEDICAL TREATMENT PRESENTING HAZARDS TO HEALTH 03/10/2014 MARISEL ROMANO DOA K 493.92 ASTHMA (ACUTE) EXACERBATION 03/10/2014 ROMANO DO LAUREANO K V15.81 PERSONAL HISTORY OF NONCOMPLIANCE WITH MEDICAL TREATMENT PRESENTING HAZARDS TO HEALTH 03/10/2014 LAUREANO ROMANO DO K 493.92 ASTHMA (ACUTE) EXACERBATION 03/10/2014 LAUREANO ROMANO DO V15.81 PERSONAL HISTORY OF NONCOMPLIANCE WITH MEDICAL TREATMENT PRESENTING HAZARDS TO HEALTH 03/10/2014 MADL DIAMOND BROKER, JACK L 493.92 ASTHMA (ACUTE) EXACERBATION 03/10/2014 MADL DIAMOND BROKER, JACK L V15.81 PERSONAL HISTORY OF NONCOMPLIANCE WITH MEDICAL TREATMENT PRESENTING HAZARDS TO HEALTH 03/10/2014 NAVIN DIAMOND BROKER, MILTON R 493.92 ASTHMA (ACUTE) EXACERBATION 03/10/2014 NAVIN DIAMOND BROKER, MILTON R V15.81 PERSONAL HISTORY OF NONCOMPLIANCE WITH MEDICAL TREATMENT PRESENTING HAZARDS TO HEALTH 03/10/2014 MADL DIAMOND BROKER, JACK L 493.92 ASTHMA (ACUTE) EXACERBATION 03/10/2014 MADL DIAMOND BROKER, JACK L V15.81 PERSONAL HISTORY OF NONCOMPLIANCE WITH MEDICAL TREATMENT PRESENTING HAZARDS TO HEALTH 03/10/2014 MADL DIAMOND BROKER, JACK L 493.92 ASTHMA (ACUTE) EXACERBATION 03/10/2014 MADL DIAMOND BROKER, JACK L V15.81 PERSONAL HISTORY OF NONCOMPLIANCE WITH MEDICAL TREATMENT PRESENTING HAZARDS TO HEALTH 03/10/2014 PRESLEYL DIAMOND BROKER, JACK L 493.92 ASTHMA (ACUTE) EXACERBATION 03/10/2014 MAD DIAMOND BROKER, JACK L V15.81 PERSONAL HISTORY OF NONCOMPLIANCE WITH MEDICAL TREATMENT PRESENTING HAZARDS TO HEALTH 03/10/2014 MADL DIAMOND BROKER, JACK L 493.92 ASTHMA (ACUTE) EXACERBATION 03/10/2014 MADL DIAMOND BROKER, JACK L V15.81 PERSONAL HISTORY OF NONCOMPLIANCE WITH MEDICAL TREATMENT PRESENTING HAZARDS TO HEALTH 03/10/2014 GEMMA SHAIKH APRN 493.92 ASTHMA (ACUTE) EXACERBATION 03/10/2014 GEMMA SHAIKH APRN V15.81 PERSONAL HISTORY OF NONCOMPLIANCE WITH MEDICAL TREATMENT PRESENTING HAZARDS TO HEALTH 03/10/2014 MADJami DIAMOND BROKER, JACK L 493.92 ASTHMA (ACUTE) EXACERBATION 03/10/2014 MADL DIAMOND BROKER, JACK L V15.81 PERSONAL HISTORY OF NONCOMPLIANCE WITH MEDICAL TREATMENT PRESENTING HAZARDS TO HEALTH 03/10/2014 MADL DIAMOND BROKER, JACK L 493.92 ASTHMA (ACUTE) EXACERBATION 03/10/2014 MADL DIAMOND BROKER, JACK L V15.81 PERSONAL HISTORY OF NONCOMPLIANCE WITH MEDICAL TREATMENT PRESENTING HAZARDS TO HEALTH 03/10/2014 PHYLLIS AHUJA APRN A 493.92 ASTHMA (ACUTE) EXACERBATION 03/10/2014 INESSA AHUJA APRNIDI Roberta V15.81 PERSONAL HISTORY OF NONCOMPLIANCE WITH MEDICAL TREATMENT PRESENTING HAZARDS TO HEALTH 03/15/2014 PRESLEYL DIAMOND BROKER, JACK L 461.9 SINUSITIS ACUTE 03/15/2014 MADL DIAMOND BROKER, JACK L 780.79 OTHER MALAISE AND FATIGUE 03/15/2014 ROMANO DO, LAUREANO K 461.9 SINUSITIS ACUTE 03/15/2014 ROMANO DO, LAUREANO K 780.79 OTHER MALAISE AND FATIGUE 03/15/2014 ROMANO DO, LAUREANO K 461.9 SINUSITIS ACUTE 03/15/2014 ROMANO DO, LAUREANO K 780.79 OTHER MALAISE AND FATIGUE 03/15/2014 MADL DIAMOND BROKER, JACK L 461.9 SINUSITIS ACUTE 03/15/2014 MADL DIAMOND BROKER, JACK L 780.79 OTHER MALAISE AND FATIGUE 03/15/2014 NAVIN DIAMOND BROKER, MILTON R 461.9 SINUSITIS ACUTE 03/15/2014 NAVIN DIAMOND BROKER, MILTON R 780.79 OTHER MALAISE AND FATIGUE 03/15/2014 MADL DIAMOND BROKER, JACK L 461.9 SINUSITIS ACUTE 03/15/2014 MADL DIAMOND BROKER, JACK L 780.79 OTHER MALAISE AND FATIGUE 03/15/2014 MADL DIAMOND BROKER, JACK L 461.9 SINUSITIS ACUTE 03/15/2014 MADL DIAMOND BROKER, JACK L 780.79 OTHER MALAISE AND FATIGUE 03/15/2014 MADL DIAMOND BROKER, JACK L 461.9 SINUSITIS ACUTE 03/15/2014 MADL DIAMOND BROKER, JACK L 780.79 OTHER MALAISE AND FATIGUE 03/15/2014 MADL DIAMOND BROKER, JACK L 461.9 SINUSITIS ACUTE 03/15/2014 MADL DIAMOND BROKER, JACK L 780.79 OTHER MALAISE AND FATIGUE 03/15/2014 GEMMA SHAIKH APRN 461.9 SINUSITIS ACUTE 03/15/2014 GEMMA SHAIKH APRN 780.79 OTHER MALAISE AND FATIGUE 03/15/2014 MADL DIAMOND BROKER, JACK L 461.9 SINUSITIS ACUTE 03/15/2014 MADL DIAMOND BROKER, JACK L 780.79 OTHER MALAISE AND FATIGUE 03/15/2014 MADL DIAMOND BROKER, JACK L 461.9 SINUSITIS ACUTE 03/15/2014 MADL DIAMOND BROKER, JACK L 780.79 OTHER MALAISE AND FATIGUE 03/15/2014 LEIGHA DIAMOND BROKER, PHYLLIS A 461.9 SINUSITIS ACUTE 03/15/2014 LEIGHA DIAMOND BROKER, PHYLLIS A 780.79 OTHER MALAISE AND FATIGUE 03/30/2014 MADL DIAMOND BROKER, JACK L 250.00 DIABETES MELLITUS WITHOUT MENTION OF COMPLICATION TYPE II OR UNSPECIFIED TYPE NOT STATED UNCONTROLLED 03/30/2014 MILTON HOLDEN APRN R 250.00 DIABETES MELLITUS WITHOUT MENTION OF COMPLICATION TYPE II OR UNSPECIFIED TYPE NOT STATED UNCONTROLLED 03/30/2014 MADL DIAMOND BROKER, JACK L 250.00 DIABETES MELLITUS WITHOUT MENTION OF COMPLICATION TYPE II OR UNSPECIFIED TYPE NOT STATED UNCONTROLLED 03/30/2014 MADL DIAMOND BROKER, JACK L 250.00 DIABETES MELLITUS WITHOUT MENTION OF COMPLICATION TYPE II OR UNSPECIFIED TYPE NOT STATED UNCONTROLLED 03/30/2014 MADL DIAMOND BROKER, JACK L 250.00 DIABETES MELLITUS WITHOUT MENTION OF COMPLICATION TYPE II OR UNSPECIFIED TYPE NOT STATED UNCONTROLLED 03/30/2014 MADL DIAMOND BROKER, JACK L 250.00 DIABETES MELLITUS WITHOUT MENTION OF COMPLICATION TYPE II OR UNSPECIFIED TYPE NOT STATED UNCONTROLLED 03/30/2014 GEMMA SHAIKH APRN 250.00 DIABETES MELLITUS WITHOUT MENTION OF COMPLICATION TYPE II OR UNSPECIFIED TYPE NOT STATED UNCONTROLLED 03/30/2014 MADL DIAMOND BROKER, JACK L 250.00 DIABETES MELLITUS WITHOUT MENTION OF COMPLICATION TYPE II OR UNSPECIFIED TYPE NOT STATED UNCONTROLLED 03/30/2014 MADL DIAMOND BROKER, JACK L 250.00 DIABETES MELLITUS WITHOUT MENTION OF COMPLICATION TYPE II OR UNSPECIFIED TYPE NOT STATED UNCONTROLLED 03/30/2014 LEIGHA DIAMOND BROKER, PHYLLIS A 250.00 DIABETES MELLITUS WITHOUT MENTION OF COMPLICATION TYPE II OR UNSPECIFIED TYPE NOT STATED UNCONTROLLED 04/06/2014 MILTON HOLDEN APRN 041.81 OTHER SPECIFIED BACTERIAL INFECTIONS IN CONDITIONS CLASSIFIED ELSEWHERE AND OF UNSPECIFIED SITE MYCOPLASMA 04/06/2014 MADL DIAMOND BROKER, JACK L 041.81 OTHER SPECIFIED BACTERIAL INFECTIONS IN CONDITIONS CLASSIFIED ELSEWHERE AND OF UNSPECIFIED SITE MYCOPLASMA 04/06/2014 MADL DIAMOND BROKER, JACK L 041.81 OTHER SPECIFIED BACTERIAL INFECTIONS IN CONDITIONS CLASSIFIED ELSEWHERE AND OF UNSPECIFIED SITE MYCOPLASMA 04/06/2014 MADL DIAMOND BROKER, JACK L 041.81 OTHER SPECIFIED BACTERIAL INFECTIONS IN CONDITIONS CLASSIFIED ELSEWHERE AND OF UNSPECIFIED SITE MYCOPLASMA 04/06/2014 MADL DIAMOND BROKER, JACK L 041.81 OTHER SPECIFIED BACTERIAL INFECTIONS IN CONDITIONS CLASSIFIED ELSEWHERE AND OF UNSPECIFIED SITE MYCOPLASMA 04/06/2014 GEMMA SHAIKH APRN 041.81 OTHER SPECIFIED BACTERIAL INFECTIONS IN CONDITIONS CLASSIFIED ELSEWHERE AND OF UNSPECIFIED SITE MYCOPLASMA 04/06/2014 MADL DIAMOND BROKER, JACK L 041.81 OTHER SPECIFIED BACTERIAL INFECTIONS IN CONDITIONS CLASSIFIED ELSEWHERE AND OF UNSPECIFIED SITE MYCOPLASMA 04/06/2014 MADL DIAMOND BROKER, JACK L 041.81 OTHER SPECIFIED BACTERIAL INFECTIONS IN CONDITIONS CLASSIFIED ELSEWHERE AND OF UNSPECIFIED SITE MYCOPLASMA 04/06/2014 LEIGHA DIAMOND BROKER, PHYLLIS A 041.81 OTHER SPECIFIED BACTERIAL INFECTIONS IN CONDITIONS CLASSIFIED ELSEWHERE AND OF UNSPECIFIED SITE MYCOPLASMA 04/20/2014 MADL DIAMOND BROKER, JACK L 327.09 OTHER ORGANIC INSOMNIA 04/20/2014 MADL DIAMOND BROKER, JACK L 327.09 OTHER ORGANIC INSOMNIA 04/20/2014 MADL DIAMOND BROKER, JACK L 327.09 OTHER ORGANIC INSOMNIA 04/20/2014 MADL DIAMOND BROKER, JACK L 327.09 OTHER ORGANIC INSOMNIA 04/20/2014 GEMMA SHAIKH APRN 327.09 OTHER ORGANIC INSOMNIA 04/20/2014 MADL DIAMOND BROKER, JACK L 327.09 OTHER ORGANIC INSOMNIA 04/20/2014 MADL DIAMOND BROKER, JACK L 327.09 OTHER ORGANIC INSOMNIA 04/20/2014 LEIGHA DIAMOND BROKER, PHYLLIS A 327.09 OTHER ORGANIC INSOMNIA 05/12/2014 MADL DIAMOND BROKER, JACK L 381.02 ACUTE MUCOID OTITIS MEDIA 05/12/2014 MADL DIAMOND BROKER, JACK L 381.02 ACUTE MUCOID OTITIS MEDIA 05/12/2014 GEMMA SHAIKH APRN 381.02 ACUTE MUCOID OTITIS MEDIA 05/12/2014 MADL DIAMOND BROKER, JACK L 381.02 ACUTE MUCOID OTITIS MEDIA 05/12/2014 MADL DIAMOND BROKER, JACK L 381.02 ACUTE MUCOID OTITIS MEDIA 05/12/2014 LEIGHA APRN, PHYLLIS A 381.02 ACUTE MUCOID OTITIS MEDIA 05/31/2014 MADL DIAMOND BROKER, JACK L 786.2 COUGH 05/31/2014 MADL DIAMOND BROKER, JACK L 786.2 COUGH 05/31/2014 GEMMA SHAIKH APRN 786.2 COUGH 05/31/2014 MADL DIAMOND BROKER, JACK L 786.2 COUGH 05/31/2014 MADL DIAMOND BROKER, JACK L 786.2 COUGH 05/31/2014 LEIGHA APRN, PHYLLIS A 786.2 COUGH 06/03/2014 MADL DIAMOND BROKER, JACK L 719.40 PAIN IN JOINT SITE UNSPECIFIED 06/03/2014 GEMMA SHAIKH APRN 719.40 PAIN IN JOINT SITE UNSPECIFIED 06/03/2014 MADL DIAMOND BROKER, JACK L 719.40 PAIN IN JOINT SITE UNSPECIFIED 06/03/2014 MADL DIAMOND BROKER, JACK L 719.40 PAIN IN JOINT SITE UNSPECIFIED 06/03/2014 LEIGHA [place]UMFIELD PHYLLIS A 719.40 PAIN IN JOINT SITE UNSPECIFIED 07/05/2014 GEMMA SHAIKH APRN 381.81 DYSFUNCTION OF EUSTACHIAN TUBE 07/05/2014 GEMMA SHAIKH APRN 472.0 CHRONIC RHINITIS 07/05/2014 PRESLEYL DIAMOND BROKER, JACK L 381.81 DYSFUNCTION OF EUSTACHIAN TUBE 07/05/2014 MADL DIAMOND BROKER, JACK L 472.0 CHRONIC RHINITIS 07/05/2014 MADL DIAMOND BROKER, JACK L 381.81 DYSFUNCTION OF EUSTACHIAN TUBE 07/05/2014 MADL DIAMOND BROKER, JACK L 472.0 CHRONIC RHINITIS 07/05/2014 LEIGHASaskia [place] PHYLLIS A 381.81 DYSFUNCTION OF EUSTACHIAN TUBE 07/05/2014 LEIGHA [place]UMFIELD PHYLLIS A 472.0 CHRONIC RHINITIS 07/29/2014 GEMMA SHAIKH APRN 614.9 UNSPECIFIED INFLAMMATORY DISEASE OF FEMALE PELVIC ORGANS AND TISSUES 07/29/2014 GEMMA SHAIKH APRN 717.7 CHONDROMALACIA OF PATELLA 07/29/2014 GEMMA SHAIKH APRN V73.81 HPV SCREENING 07/29/2014 GEMMA SHAIKH APRN V76.2 CERVICAL CANCER SCREENING (PAP SMEAR) 07/29/2014 MATTHEW WHITLEYSaskia JACK L 614.9 UNSPECIFIED INFLAMMATORY DISEASE OF FEMALE PELVIC ORGANS AND TISSUES 07/29/2014 MATTHEW WHITLEYPETER KrugerA L 717.7 CHONDROMALACIA OF [place] 07/29/2014 MATTHEW WHITLEYSaskia JACK L V73.81 HPV SCREENING 07/29/2014 MATTHEW WHITLEYSaskia JACK L V76.2 CERVICAL CANCER SCREENING (PAP SMEAR) 07/29/2014 MATTHEW WHITLEYPETER KrugerA L 614.9 UNSPECIFIED INFLAMMATORY DISEASE OF FEMALE PELVIC ORGANS AND TISSUES 07/29/2014 MATTHEW WHITLEYPETER [place]rugerA L 717.7 CHONDROMALACIA OF [place] 07/29/2014 MATTHEW WHITLEYPETER KrugerA L V73.81 HPV SCREENING 07/29/2014 MATTHEW WHITLEYSaskia JACK L V76.2 CERVICAL CANCER SCREENING (PAP SMEAR) 07/29/2014 LEIGHAPHYLLIS Kruger APRN A 614.9 UNSPECIFIED INFLAMMATORY DISEASE OF FEMALE PELVIC ORGANS AND TISSUES 07/29/2014 PHYLLIS AHUJA APRN A 717.7 CHONDROMALACIA OF [place] 07/29/2014 LEIGHASaskia [place] PHYLLIS A V73.81 HPV SCREENING 07/29/2014 PHYLLIS AHUJA APRN A V76.2 CERVICAL CANCER SCREENING (PAP SMEAR) 08/16/2014 PHYLLIS AHUJA APRN A 079.4 HPV 02/18/2015 MARY JOYCE APRN Ot R05 COUGH 02/18/2015 MARY JOYCE APRN Ot R06.00 DYSPNEA, UNSPECIFIED 02/21/2015 MARY JOYCE APRN Ot R05 02/21/2015 MARY JOYCE APRN Ot R06.00 02/21/2015 TERRY SHANE MD Ot F41.9 ANXIETY DISORDER, UNSPECIFIED 02/21/2015 TERRY SHANE MD Ot R00.2 PALPITATIONS 02/21/2015 MARY JOYCE APRN Ot R05 02/21/2015 MARY JOYCE APRN Ot R06.00 03/01/2015 ANIRUDH DOAMY Ot E66.9 03/01/2015 ANIRUDH DOAMY M Ot G47.10 03/01/2015 ANIRUDH DOAMY M Ot J45.909 03/01/2015 ANIRUDH DOAMY M Ot R06.83 03/11/2015 AINRUDH DOAMY M Ot R06.83 SNORING 03/15/2015 ANIRUDH DOAMY M Ot E66.9 03/15/2015 ANIRUDH DOAMY M Ot G47.10 03/15/2015 ANIRUDH DOAMY M Ot J45.909 03/15/2015 ANIRUDH DOAMY M Ot R06.83 04/14/2015 ANIRUDH DOAMY M Ot E66.9 04/14/2015 ANIRUDH DOAMY M Ot G47.10 04/14/2015 ANIRUDH DO AMY M Ot J45.909 04/14/2015 ANIRUDH DOAMY M Ot R06.83 04/14/2015 ANIRUDH DOAMY M Ot E66.9 04/14/2015 ANIRUDH DOAMY M Ot G47.10 04/14/2015 ANIRUDH DOAMY M Ot J45.909 04/14/2015 ANIRUDH DO, AMY M Ot R06.83 04/29/2015 ANIRUDH DOAMY M Ot E66.9 04/29/2015 ANIRUDH DO AMY M Ot G47.10 04/29/2015 ANIRUDH DO AMY M Ot J45.909 04/29/2015 ANIRUDH DOAMY M Ot R06.83 06/02/2015 ANIRUDH DO, AMY M Ot E66.9 06/02/2015 ANIRUDH DO AMY M Ot G47.10 06/02/2015 ANIRUDH DO AMY M Ot J45.909 06/02/2015 ANIRUDH DO AMY M Ot R06.83 06/03/2015 RACHEL OCAMPO, HILDA Regalado Ot R07.9 07/01/2015 RACHEL OCAMPO, HILDA Regalado Ot R07.9 07/08/2015 HILDA RAMOS MD Ot R07.9 07/08/2015 RACHEL OCAMPO, HILDA Regalado Ot R07.9 07/13/2015 AMY OLEARY DO Ot E66.9 07/13/2015 AMY OLEARY DO Ot G47.10 07/13/2015 AMY OLEARY DO Ot J45.909 07/13/2015 AMY OLEARY DO Ot R06.83 07/13/2015 RACHEL OCAMPO, HILDA Regalado Ot R07.9 07/13/2015 ARCHEL OCAMPO, HILDA Regalado Ot R07.9 07/13/2015 RACHEL OCAMPO, HILDA Regalado Ot R07.9 07/14/2015 JOSIE PA, NILES Rabia Ot I49.1 07/14/2015 JOSIE PA, NILES Rabia Ot R00.0 07/14/2015 JOSIE PA, NILES [place] Ot R00.2 07/14/2015 JOSIE PA, NILES [place] Ot R07.89 07/15/2015 AMY OLEARY DO Ot E66.9 07/15/2015 AMY OLEARY DO Ot G47.10 07/15/2015 AMY OLEARY DO Ot J45.909 07/15/2015 AMY OLEARY DO Ot R06.83 08/03/2015 JOSIE PA, NILES [place] Ot I49.1 08/03/2015 JOSIE PA, NILES [place] Ot R00.0 08/03/2015 JOSIE PA, NILES Rabia Ot R00.2 08/03/2015 JOSIE PA, NILES K Ot R07.89 08/31/2015 RACHEL OCAMPO, HILDA Regalado Ot R07.9 CHEST PAIN, UNSPECIFIED 06/19/2016 AMY OLEARY DO Ot E66.9 OBESITY, UNSPECIFIED 06/19/2016 AMY OLEARY DO Ot G47.10 HYPERSOMNIA, UNSPECIFIED 06/19/2016 AMY OLEARY DO Ot J45.909 UNSPECIFIED ASTHMA, UNCOMPLICATED 06/19/2016 AMY OLEARY DO Ot R06.83 SNORING 06/19/2016 RACHEL OCAMPO, HILDA Regalado Ot R07.9 CHEST PAIN, UNSPECIFIED 06/19/2016 HILDA RAMOS MD Ot R07.9 CHEST PAIN, UNSPECIFIED 06/19/2016 NILES DUBON Ot I49.1 ATRIAL PREMATURE DEPOLARIZATION 06/19/2016 NILES DUBON Ot R00.0 TACHYCARDIA, UNSPECIFIED 06/19/2016 NILES DUBON Ot R00.2 PALPITATIONS 06/19/2016 NILES DUBON Ot R07.89 OTHER CHEST PAIN 06/19/2016 HILDA RAMOS MD Ot R07.9 CHEST PAIN, UNSPECIFIED 06/19/2016 MARY JOYCE APRN Ot E11.9 TYPE 2 DIABETES MELLITUS WITHOUT COMPLIC 06/19/2016 MARY JOYCE APRN Ot L60.0 INGROWING NAIL 06/19/2016 MARY JOYCE APRN Ot 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 06/19/2016 MARY JOYCE APRN Ot Z79.899 OTHER [employer] O[employer]ATOR (CURRENT) DRUG THERAPY 06/19/2016 AMY OLEARY DO Ot E66.9 OBESITY, UNSPECIFIED 06/19/2016 AMY OLEARY DO Ot G47.10 HYPERSOMNIA, UNSPECIFIED 06/19/2016 AMY OLEARY DO Ot J45.909 UNSPECIFIED ASTHMA, UNCOMPLICATED 06/19/2016 AMY OLEARY DO Ot R06.83 SNORING 06/19/2016 HILDA RAMOS MD Ot R07.9 CHEST PAIN, UNSPECIFIED 06/19/2016 HILDA RAMOS MD Ot R07.9 CHEST PAIN, UNSPECIFIED 06/19/2016 NILES DUBON Ot I49.1 ATRIAL PREMATURE DEPOLARIZATION 06/19/2016 NILES DUBON Ot R00.0 TACHYCARDIA, UNSPECIFIED 06/19/2016 NILES DUBON Ot R00.2 PALPITATIONS 06/19/2016 NILES DUBON Ot R07.89 OTHER CHEST PAIN 06/19/2016 HILDA RAMOS MD Ot R07.9 CHEST PAIN, UNSPECIFIED 06/20/2016 MARY JOYCE APRN Ot E11.9 TYPE 2 DIABETES MELLITUS WITHOUT COMPLIC 06/20/2016 MARY JOYCE APRN Ot L60.0 INGROWING NAIL 06/20/2016 MARY JOYCE DIAMOND BROKER Ot 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 06/20/2016 MARY JOYCE DIAMOND BROKER Ot Z79.899 OTHER [employer]IME [employer] OPERATOR (CURRENT) DRUG THERAPY 07/05/2016 MARLEEN MARTINEZ DO D Ot K21.9 GASTRO-ESOPHAGEAL REFLUX DISEASE WITHOUT 07/05/2016 BRANDEN MARTINEZ DOTT D Ot K92.1 MELENA 07/05/2016 BRANDEN MARTINEZ DOTT D Ot Z01.818 ENCOUNTER FOR OTHER PREPROCEDURAL EXAMIN 07/05/2016 MARLEEN MARTINEZ DO D Ot K21.9 GASTRO-ESOPHAGEAL REFLUX DISEASE WITHOUT 07/05/2016 MARLEEN MARTINEZ DO D Ot K92.1 MELENA 07/05/2016 MARLEEN MARTINEZ DO D Ot Z01.818 ENCOUNTER FOR OTHER PREPROCEDURAL EXAMIN 07/06/2016 MARLEEN MARTINEZ DO Ot K21.9 GASTRO-ESOPHAGEAL REFLUX DISEASE WITHOUT 07/06/2016 BRANDEN MARTINEZ DOTT D Ot K92.1 MELENA 07/06/2016 BRANDEN MARTINEZ DOTT D Ot Z01.818 ENCOUNTER FOR OTHER PREPROCEDURAL EXAMIN 07/10/2016 BRANDEN MARTINEZ DOTT D Ot K29.70 GASTRITIS, UNSPECIFIED, WITHOUT BLEEDING 07/10/2016 BRANDEN MARTINEZ DOTT D Ot K44.9 DIAPHRAGMATIC HERNIA WITHOUT OBSTRUCTION 07/10/2016 BRANDEN MARTINEZ DOTT D Ot K62.5 HEMORRHAGE OF ANUS AND RECTUM 07/11/2016 BRANDEN MARTINEZ DOTT D Ot K21.9 GASTRO-ESOPHAGEAL REFLUX DISEASE WITHOUT 07/11/2016 MARTINEZ DO MARLEEN D Ot K92.1 MELENA 07/11/2016 MICHELLE DURHAM MARLEEN D Ot Z01.818 ENCOUNTER FOR OTHER PREPROCEDURAL EXAMIN 07/11/2016 MICHELLE DURHAM MARLEEN D Ot K29.70 GASTRITIS, UNSPECIFIED, WITHOUT BLEEDING 07/11/2016 BRANDEN MARTINEZ DOTT D Ot K44.9 DIAPHRAGMATIC HERNIA WITHOUT OBSTRUCTION 07/11/2016 BRANDEN MARTINEZ DOTT D Ot K62.5 HEMORRHAGE OF ANUS AND RECTUM 07/16/2016 BRANDEN MARTINEZ DOTT D Ot K29.70 GASTRITIS, UNSPECIFIED, WITHOUT BLEEDING 07/16/2016 MARLEEN MARTINEZ DO Ot K44.9 DIAPHRAGMATIC HERNIA WITHOUT OBSTRUCTION 07/16/2016 MARLEEN MARTINEZ DO Ot K62.5 HEMORRHAGE OF ANUS AND RECTUM 07/18/2016 EARLINE HOOK Ot H92.01 OTALGIA, RIGHT EAR 07/18/2016 EARLINE HOOK Ot K11.20 SIALOADENITIS, UNSPECIFIED 07/26/2016 AMY OLEARY DO Ot E66.9 OBESITY, UNSPECIFIED 07/26/2016 AMY OLEARY DO Ot G47.10 HYPERSOMNIA, UNSPECIFIED 07/26/2016 AMY OLEARY DO Ot J45.909 UNSPECIFIED ASTHMA, UNCOMPLICATED 07/26/2016 AMY OLEARY DO Ot R06.83 SNORING 07/26/2016 HILDA RAMOS MD Ot R07.9 CHEST PAIN, UNSPECIFIED 07/26/2016 HILDA RAMOS MD Ot R07.9 CHEST PAIN, UNSPECIFIED 07/26/2016 NILES DUBON Ot I49.1 ATRIAL PREMATURE DEPOLARIZATION 07/26/2016 NILES DUBON Ot R00.0 TACHYCARDIA, UNSPECIFIED 07/26/2016 NILES DUBON Ot R00.2 PALPITATIONS 07/26/2016 NILES DUBON Ot R07.89 OTHER CHEST PAIN 07/26/2016 HILDA RAMOS MD Ot R07.9 CHEST PAIN, UNSPECIFIED 07/30/2016 AMY OLEARY DO Ot E66.9 OBESITY, UNSPECIFIED 07/30/2016 AMY OLEARY DO Ot G47.10 HYPERSOMNIA, UNSPECIFIED 07/30/2016 AMY OLEARY DO Ot J45.909 UNSPECIFIED ASTHMA, UNCOMPLICATED 07/30/2016 AMY OLEARY DO Ot R06.83 SNORING 07/30/2016 HILDA RAMOS MD Ot R07.9 CHEST PAIN, UNSPECIFIED 07/30/2016 HILDA RAMOS MD Ot R07.9 CHEST PAIN, UNSPECIFIED 07/30/2016 NILES DUBON Ot I49.1 ATRIAL PREMATURE DEPOLARIZATION 07/30/2016 [place] PA, NILES K Ot R00.0 TACHYCARDIA, UNSPECIFIED 07/30/2016 NILES DUBON Ot R00.2 PALPITATIONS 07/30/2016 NILES DUBON Ot R07.89 OTHER CHEST PAIN 07/30/2016 HILDA RAMOS MD Ot R07.9 CHEST PAIN, UNSPECIFIED Procedures Code Description [place] [id number] H PYLORI (IN-HOUSE) 12/27/2012 34547 URINE TEST (IN-HOUSE) 01/29/2013 17193 PULMONARY FUNCTION TEST 01/29/2013 57119 PULMONARY FUNCTION TEST (IN-HOUSE) 02/23/2013 02833 RESPIRATORY FLOW VOLUME LOOP 02/23/2013 66401 PULMONARY EDUCATION 02/23/2013 52473 INFLUENZA A & B (IN-HOUSE) 05/15/2013 79280 TRICHOMONAS (IN-HOUSE) 07/31/2013 80553 THERAPUTIC INJ SQ/IM 07/31/2013 68137 TEST, URINE (IN-HOUSE) 07/31/2013 J1050 DEPO PROVERA 02/2014 52134 GC/CHLAM PROBE (STATE) 07/31/2013 66050 PAP SMEAR 2013 76115 GC/CHLAM URINE (STATE) 08/14/2013 91347 TEST, URINE (IN-HOUSE) 10/19/2013 J1050 DEPO PROVERA 30533 THERAPUTIC INJ SQ/IM 10/19/2013 49148 UA LONG DIP 12/19 83206 TEST, URINE (IN-HOUSE) 01/30/2014 13099 THERAPUTIC INJ SQ/IM 01/30/2014 J1050 DEPO PROVERA 02/2014 64617 OXIMETRY 2013 59532 OXIMETRY 2013 61028 NEBULIZER TREATMENT 03/10/2014 J7613 ALBUTEROL UNIT DOSE FORM INHALED 03/10/2014 28262 CMP 03/17/2014 61836 TSH 03/17/2014 49650 CBC 03/17/2014 67704 ROUTINE VENIPUNCTURE 03/17/2014 27476 GLUCOSE FINGER STICK 03/26/2014 72740 GLUCOSE FINGER STICK 03/26/2014 57438 GLUCOSE FINGER STICK 03/26/2014 24124 GLUCOSE FINGER STICK 03/26/2014 36119 GLUCOSE JANETT 2 HOUR 03/29/2014 58634 ROUTINE VENIPUNCTURE 03/30/2014 80888 A1C (IN-HOUSE) 19308 CBC 03/30/2014 08029 MICRO ALBUMIN-IN HOUSE 03/30/2014 60540 MICROALBUMIN 12/2013 43492 MYCOPLASMA ANTIBODY 03/30/2014 17767 XRAY CHEST 2 VIEW 04/06/2014 91341 ROUTINE VENIPUNCTURE 04/20/2014 33620 TEST, URINE (IN-HOUSE) 04/20/2014 80126 THERAPUTIC INJ SQ/IM 04/20/2014 J1050 DEPO PROVERA 40035 CMP 04/20/2014 20550 ROUTINE VENIPUNCTURE 05/31/2014 32421 XRAY CHEST 2 VIEW 06/01/2014 05544 CMP 06/01/2014 18161 CBC 06/01/2014 81707 OXIMETRY 2014 15664 UA W/ CULTURE IF INDICATED 06/03/2014 J0696 ROCEPHIN INJ 250 mg 07/29/2014 29839 TRICHOMONAS (IN-HOUSE) 07/29/2014 06131 CULTURE UROGENITAL 08/01/2014 32877 GC/CHLAM PROBE (STATE) 08/02/2014 17898 PAP SMEAR 2014 Q0091 PAP SMEAR OBTAIN SMEAR 08/02/2014 03275 OXIMETRY 2014 19951 TEST, URINE (IN-HOUSE) 08/16/2014 35959 COLP W/ BX & ECC 08/16/2014 Results Test Result Range Gram stain microscopy - 06/19/16 13:36 GRAM STAIN RESULT NO BACTERIA NRG Bacteria identification in wound by culture - 06/19/16 13:36 Bacteria identification in wound by culture [id number] NRG FREE TEXT EXTERNAL SENSITIVITY REPORTED 06/21/16 10:00 NRG QUANTITY OF GROWTH Moderate Growth NRG MRSA AGAR MRSA isolated (Screening test for MRSA is positive) NRG CALL POSITIVES (F1 HELP) CALLED TO [facility] [id number] 06/20 12:28 NRG Bacterial susceptibility panel - 06/19/16 13:36 Oxacillin susceptibility test by minimum inhibitory concentration >= NRG Gentamicin susceptibility test by minimum inhibitory concentration <= NRG Clindamycin susceptibility test by minimum inhibitory concentration >= NRG Erythromycin susceptibility test by minimum inhibitory concentration >= NRG Trimethoprim/sulfamethoxazole susceptibility test by minimum inhibitoryconcentration <= NRG Vancomycin susceptibility test by minimum inhibitory concentration 1 NRG Levofloxacin susceptibility test by minimum inhibitory concentration <= NRG Rifampin susceptibility test by minimum inhibitory concentration <= NRG Tetracycline susceptibility test by minimum inhibitory concentration >= NRG Urine beta human chorionic gonadotropin (hCG) measurement - 07/10/16 08:15 Urine beta human chorionic gonadotropin (hCG) measurement NEGATIVE NEGATIVE Gram stain microscopy - 07/18/16 00:00 Gram stain microscopy TNP NRG Bacteria identified - 07/18/16 00:00 QUANTITY OF GROWTH . NRG Bacteria identified SEE REPORT NRG Streptococcus pyogenes antigen detection - 07/18/16 13:27 Streptococcus pyogenes antigen detection NEGATIVE NEGATIVE Influenza virus A and B antigen detection - 07/18/16 13:27 FLU RESULT NEGATIVE FOR INFLUENZA A AND B ANTIGENS BY IA NRG Bacterial throat culture - 07/18/16 13:27 Bacterial throat culture NBS NRG Serum heterophile antibody titer - 07/18/16 13:30 Serum heterophile antibody titer NEGATIVE NEGATIVE Encounters ACCT No. Visit Date/Time Discharge Status Pt. Type Provider Facility Loc./Unit Complaint [id number] 08/16/2014 13:06:00 08/16/2014 23: 59:59 CLS Outpatient LEIGHA DIAMOND BROKERPHYLLIS Kruger [id number] 08/12/2014 15:25:00 08/12/2014 23: 59:59 CLS Outpatient JACK CASTRO APRN Jami [id number] 08/09/2014 17:09:00 08/09/2014 23: 59:59 CLS Outpatient PETER CASTRO APRNRoberta Farrell [id number] 07/29/2014 15:14:00 07/29/2014 23: 59:59 CLS Outpatient MURTAZA SHAIKH APRNYECENIA Salas [id number] 06/03/2014 10:26:00 06/03/2014 23: 59:59 CLS Outpatient PETER CASTRO APRNA L [id number] 05/31/2014 14:00:00 05/31/2014 23: 59:59 CLS Outpatient PETER CASTRO APRNRoberta Farrell [id number] 04/20/2014 13:40:00 04/20/2014 23: 59:59 CLS Outpatient PETER CASTRO APRNA L [id number] 04/19/2014 00:00:00 04/19/2014 23: 59:59 CLS Outpatient MADL DIAMOND BROKERJACK [id number] 04/06/2014 15:38:00 04/06/2014 23: 59:59 CLS Outpatient NAVIN DIAMOND BROKERMILTON [id number] 03/30/2014 15:15:00 03/30/2014 23: 59:59 CLS Outpatient MADL DIAMOND BROKERJACK Jami [id number] 03/26/2014 09:22:00 03/26/2014 23: 59:59 CLS Outpatient ROMANO DO LAUREANO [place] [id number] 03/17/2014 09:58:00 03/17/2014 23: 59:59 CLS Outpatient ROMANO DO LAUREANO [place] [id number] 03/15/2014 13:28:00 03/15/2014 23: 59:59 CLS Outpatient MADL DIAMOND BROKERJACK Jami [id number] 03/10/2014 09:54:00 03/10/2014 23: 59:59 CLS Outpatient EATON DIAMOND BROKERHUONGPINA L [id number] 02/04/2014 15:24:00 02/04/2014 23: 59:59 CLS Outpatient ROMANO DO LAUREANO [place] [id number] 01/30/2014 12:03:00 01/30/2014 23: 59:59 CLS Outpatient KAT DIAMOND BROKERRONALD [id number] 12/19/2013 11:08:00 12/19/2013 23: 59:59 CLS Outpatient ROMANO DO LAUREANO [place] [id number] 10/19/2013 16:22:00 10/19/2013 23: 59:59 CLS Outpatient ROMANO DOLAUREANO [id number] 09/02/2013 08:12:00 09/02/2013 23: 59:59 CLS Outpatient EATON DIAMOND BROKERHUONGPINA L [id number] 08/14/2013 14:49:00 08/14/2013 23: 59:59 CLS Outpatient KAT DIAMOND BROKERRONALD [id number] 07/31/2013 14:55:00 07/31/2013 23: 59:59 CLS Outpatient ROMANO DOLAUREANO [id number] 07/14/2013 09:32:00 07/14/2013 23: 59:59 CLS Outpatient ROAMNO DOLAUREANO [id number] 05/15/2013 11:25:00 05/15/2013 23: 59:59 CLS Outpatient LAUREANO ROMANO DO [id number] 04/21/2013 09:58:00 04/21/2013 23: 59:59 CLS Outpatient LAUREANO ROMANO DO [id number] 04/06/2013 10:46:00 04/06/2013 23: 59:59 CLS Outpatient LAUREANO ROMANO DO [id number] 02/25/2013 12:06:00 02/25/2013 23: 59:59 CLS Outpatient SARAI MURRELL APRN [id number] 02/23/2013 09:29:00 02/23/2013 23: 59:59 CLS Outpatient JERAMY FUNEZ MD [id number] 01/29/2013 09:59:00 01/29/2013 23: 59:59 CLS Outpatient JERAMY FUNEZ MD [id number] 12/27/2012 12:59:00 Document Registration
--- OUTSIDE RECORDS SUMMARY | 2016-08-12 04:45 | XMS REPORT ---
Author Author JACK CASTRO [facility] eClinicalWorks Address Unknown Phone Unavailable Care Team Providers Care Roustabout Crew Leader Name Role Phone JACK CASTRO Unavailable Allergies, Adverse Reactions, Alerts Substance Reaction Event Type Penicillin V Potassium Info Not Available Drug Allergy Bandaids burning Non Drug Allergy Problems Problem Type Condition Code Onset Dates Condition Status Assessment Constipation due to slow transit K59.01 Active Assessment Yeast infection B37.9 Active Problem Otalgia of both ears H92.03 Active Assessment Palpitations R00.2 Active Problem Candidiasis of skin B37.2 Active Problem Encounter for surveillance of injectable contraceptive Z30.42 Active Problem Vaginal yeast infection B37.3 Active Problem 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 Problem Palpitations R00.2 Active Problem Acute mucoid otitis media of left ear H65.112 Active Problem Chronic eustachian tube dysfunction, bilateral H69.83 Active Problem Palpitation R00.2 Active Problem Mild persistent asthma without complication J45.30 Active Problem Bronchiolitis J21.9 Active Problem Fatigue, unspecified type R53.83 Active Problem Routine gynecological examination Z01.419 Active Problem History of abnormal cervical Pap smear Z87.898 Active Problem Constipation due to slow transit K59.01 Active Problem Yeast infection B37.9 Active Problem Sensation of feeling hot R68.89 Active Problem Prediabetes R73.09 Active Problem Fatigue R53.83 Active Problem GERD (gastroesophageal reflux disease) K21.9 Active Problem Bruising T14.8 Active Problem Chronic eczematoid otitis externa of both ears H60.8X3 Active Problem Elevated blood pressure I10 Active Problem Asthma J45.909 Active Medications Medication Code System Code Instructions Start Date End Date Status Dosage Zofran ODT [facility] [address]-58 4 MG Orally every 8 hrs prn Nov 22, 2015 1 tablet on the tongue and allow to dissolve Toprol XL [facility] [address]-00 25 MG Orally Once a day 1 tablet Amitriptyline HCl [facility] 41217492675 25 TAKE 1 TABLET BY MOUTH DAILY ZyrTEC NDC 0 10 mg oral Once a day take 1 tablet (10 mg) by oral route once daily Advair Diskus [facility] [address]-21 250-50 MCG/DOSE Inhalation Twice a day 1 puff Celexa [facility] [address]-41 10 mg Mar 10, 2014 take 1 tablet (10 mg) by oral route once daily Flonase NDC 0 50 mcg/actuation Nasally Once a day 1 sprays by Nasal route 2 times per day in each nostril Albuterol Sulfate [facility] [address]-20 0.63 mg/3 mL Feb 08, 2014 3 mL by Inhalation route every 4 hours PRN cough or wheeze Pamelor [facility] [address]-23 25 mg Mar 10, 2014 TAKE ONE CAPSULE BY MOUTH TWICE A DAY. Diflucan [facility] [address]-52 150 MG Orally daily Jan 24, 2016 Jan 25, 2016 1 tablet Wellbutrin XL [facility] [address]-91 300 MG Orally Once a day 1 tablet in the morning Klonopin [facility] [address]-68 0.5 MG Orally Twice a day 1 tablet Albuterol NDC 0 90 mcg/actuation PRN 2 puffs by Inhalation route every 4-6 hours for 7 days Courtney Contour Test [facility] 35624782910 0 TEST ONCE DAILY Doxycycline Hyclate [facility] [address]-21 100 MG Orally every 12 hrs Jan 11, 2016 Jan 25, 2016 1 capsule Nebulizer Compressor [facility] 99153-28824 Apr 13, 2015 as directed ProAir HFA [facility] [address]-36 90 mcg/actuation Mar 10, 2014 inhale 2 puffs by Inhalation route every 4-6 hours as needed PRN shortness of breath/ cough Courtney Contour Test ND 0 Test Strips In Vitro Once a day July 05, 2015 as directed Singulair [facility] [address]-07 10 MG Orally Once a day May 28, 2014 1 tablet by Oral route 1 time per day Lancets Micro Thin 33G [facility] 67287-[address]89 September 23, 2014 as directed Procedures Procedure Coding System Code Date Office Visit, Est Pt., Level 4 CPT-4 89057 Jan 24, 2016 ELECTROCARDIOGRAM, TRACING CPT-4 41687 Jan 24, 2016 Vital Signs Date/Time: Jan 24, 2016 Cardiac Monitoring Heart Rate 76 bpm Weight 238.3 lbs Height 68 in BMI 36.23 Index Blood Pressure Diastolic 72 mmHg Blood Pressure Systolic 110 mmHg Results Name Result Date Reference Range Unit Abnormality Flag EKG, TRACING (IN-HOUSE) Summary Purpose eClinicalWorks Submission
--- OUTSIDE RECORDS SUMMARY | 2016-08-12 04:45 | XMS REPORT ---
Author Author JACK CASTRO [facility] eClinicalWorks Address Unknown Phone Unavailable Care Team Providers Care Java Software Name Role Phone JACK CASTRO CP Unavailable Allergies, Adverse Reactions, Alerts Substance Reaction Event Type Penicillin V Potassium Info Not Available Drug Allergy Bandaids burning Non Drug Allergy Problems Problem Type Condition Code Onset Dates Condition Status Assessment Right otitis media with effusion H65.91 Active Problem Candidiasis of skin B37.2 Active [...] route once daily Lancets Micro Thin 33G [facility] [address] September 23, 2014 as directed Protonix [facility] [address]-75 40 MG Orally Once a day 1 tablet Courtney Contour Test [facility] 64749855815 0 TEST ONCE DAILY Test strips ND 0 Test Strips PRN Feb 14, 2016 as directed ProAir HFA [facility] [address]-90 90 mcg/actuation Mar 10, 2014 inhale 2 puffs by Inhalation route every 4-6 hours as needed PRN shortness of breath/ cough Klonopin [facility] [address]-95 0.5 MG Orally Twice a day 1 tablet Toprol XL [facility] [address]-58 25 MG Orally Once a day 1 tablet Advair Diskus [facility] [address]-57 250-50 MCG/DOSE Inhalation Twice a day 1 puff Amitriptyline HCl [facility] 00199541380 25 TAKE 1 TABLET BY MOUTH DAILY Nebulizer Compressor [facility] 83859-[address]00 Apr 13, 2015 as directed Flonase ND 0 50 mcg/actuation Nasally Once a day 1 sprays by Nasal route 2 times per day in each nostril Wellbutrin XL [facility] [address]-03 300 MG Orally Once a day 1 tablet in the morning Celexa [facility] [address]-74 10 mg Mar 10, 2014 take 1 tablet (10 mg) by oral route once daily Singulair [facility] [address]-26 10 MG Orally Once a day May 28, 2014 1 tablet by Oral route 1 time per day Glucometer [facility] 0 Feb 14, 2016 as directed Zofran ODT [facility] [address]-82 4 MG Orally every 8 hrs prn Nov 22, 2015 1 tablet on the tongue and allow to dissolve Albuterol Sulfate [facility] [address]-82 0.63 mg/3 mL Feb 08, 2014 3 mL by Inhalation route every 4 hours PRN cough or wheeze Keflex [facility] [address]-10 500 MG Orally three times a day Mar 08, 2016 Mar 18, 2016 1 capsule Procedures Procedure Coding System Code Date Office Visit, Est Pt., Level 3 CPT-4 86865 Mar 08, 2016 Vital Signs Date/Time: Mar 08, 2016 Cardiac Monitoring Heart Rate 78 bpm Weight 242 lbs Height 68 in BMI 36.79 Index Blood Pressure Diastolic 58 mmHg Blood Pressure Systolic 104 mmHg Results No Known Results Summary Purpose eClinicalWorks Submission
--- OUTSIDE RECORDS SUMMARY | 2016-08-12 04:45 | XMS REPORT ---
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 Problem Dysuria 788.1 Active Problem Screening examination for venereal disease V74.5 Active Problem Other general counseling and advice for contraceptive management V25.09 Active Problem Unspecified disorder of the teeth and supporting structures 525.9 Active Problem Counseling on other sexually transmitted diseases V65.45 Active Problem Pain in joint, site unspecified 719.40 Active Problem Allergic rhinitis, cause unspecified 477.9 Active Problem Unspecified viral infection, in conditions classified elsewhere and of unspecified site 079.99 Active Problem Unspecified breast screening V76.10 Active Problem General counseling for initiation of other contraceptive measures V25.02 Active Problem Need for prophylactic vaccination and inoculation, Influenza V04.81 Active Problem Unspecified infective otitis externa 380.10 Active Problem Acute sinusitis, unspecified 461.9 Active Problem Other malaise and fatigue 780.79 Active Problem Asthma 493.90 Active Problem Candidiasis of vulva and vagina 112.1 Active Problem Cough 786.2 Active Problem Other acute sinusitis 461.8 Active Problem Diarrhea 787.91 Active Problem Diabetes mellitus without mention of complication, type II or unspecified type, not stated as uncontrolled 250.00 Active Problem Asthma, unspecified, with (acute) exacerbation 493.92 Active Problem Acute bronchitis 466.0 Active Problem Acute mucoid otitis media 381.02 Active Problem Personal history of noncompliance with medical treatment, presenting hazards to health V15.81 Active Problem 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 Active Problem Acute upper respiratory infections of unspecified site 465.9 Active Problem Chronic rhinitis 472.0 Active Problem Dysfunction of Eustachian tube 381.81 Active Medications No Known Medications Results No Known Results Summary Purpose eClinicalWorks Submission
--- OUTSIDE RECORDS SUMMARY | 2016-08-12 04:45 | XMS REPORT ---
Author Author JACK CASTRO Organization eClinicalWorks Address Unknown Phone Unavailable Care Team Providers Care Garage Helper Name Role Phone JACK CASTRO CP Unavailable [...] Problem Elevated blood pressure I10 Active Assessment Bruising T14.8 Active Problem Encounter for surveillance of injectable contraceptive Z30.42 Active Problem Fatigue, unspecified type R53.83 Active Assessment Prediabetes R73.09 Active Problem Mild persistent asthma without complication J45.30 Active Medications No Known Medications Procedures Procedure Coding System Code Date GLYCATED HEMOGLOBIN TEST CPT-4 18342 August 11, 2015 VENIPUNCT, ROUTINE* CPT-4 59561 August 11, 2015 LAB NOT BILLED BY [facility] CPT-4 NOBLL August 11, 2015 Results Name Result Date Reference Range Unit Abnormality Flag ROUTINE VENIPUNCTURE Summary Purpose eClinicalWorks Submission
--- OUTSIDE RECORDS SUMMARY | 2016-08-12 04:46 | XMS REPORT ---
Author Author JACK CASTRO [facility] Address [address] [place] [address] Care Team Providers Care Qa Analyst Name Role Phone JACK CASTRO Unavailable PROBLEMS Type Condition ICD9-CM Code YDQ59-UA Code Onset Dates Condition Status SNOMED Code Problem Bruising T14.8 Active 872104882 Problem Otalgia of both ears H92.03 Active 990484725 Problem Chronic eczematoid otitis externa of both ears H60.8X3 Active 38678819 Problem Routine gynecological examination Z01.419 Active 165142977 Assessment Palpitations R00.2 Dec, Active 63288712 Problem History of abnormal cervical Pap smear Z87.898 Active 444103111 Problem Vaginal yeast infection B37.3 Active 07634183 Problem Candidiasis of skin B37.2 Active 21019852 Problem 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 079732249 Problem Palpitations R00.2 Active 82385827 Problem Mild persistent asthma without complication J45.30 Active 498156048 Problem Palpitation R00.2 Active 94043555 Problem Encounter for surveillance of injectable contraceptive Z30.42 Active 58503163 Problem Fatigue, unspecified type R53.83 Active 90177058 Problem Sensation of feeling hot R68.89 Active 737770380 Problem Prediabetes R73.09 Active 8287187 Problem Fatigue R53.83 Active 99286202 Problem Elevated blood pressure I10 Active 37304390 Problem GERD (gastroesophageal reflux disease) K21.9 Active 114433867 Problem Asthma J45.909 Active 164238687 ALLERGIES Substance Reaction Event Type Date Status Penicillin V Potassium Unknown Drug Allergy Dec, Active Bandaids burning Non Drug Allergy Dec, Active SOCIAL HISTORY No smoking Hx information available PLAN OF CARE VITAL SIGNS Height 68 in 2015-12-28 Weight 237.5 lbs 2015-12-28 Heart Rate 74 bpm 2015-12-28 Respiratory Rate 18 2015-12-28 BMI 36.11 kg/m2 2015-12-28 Blood pressure systolic 110 mmHg 2015-12-28 Blood pressure diastolic 70 mmHg 2015-12-28 MEDICATIONS Medication Instructions Dosage Frequency Start Date End Date Duration Status Protonix 40 MG Orally Once a day 1 tablet 24h Active Courtney Contour Test Test Strips In Vitro Once a day as directed 24h 15 Jun, 2015 Active Toprol XL 25 MG Orally Once a day 1 tablet 24h 90 days Active Nebulizer Compressor as directed Mar, Active Lancets Micro Thin 33G as directed Sep, Active Wellbutrin XL 300 MG Orally Once a day 1 tablet in the morning 24h Active Advair Diskus 250-50 MCG/DOSE Inhalation Twice a day 1 puff 12h Active Zofran ODT 4 MG Orally every 8 hrs prn 1 tablet on the tongue and allow to dissolve Nov, 03 days Active Courtney Contour Test - USE TO TEST BLOOD SUGARS ONCE DAILY DIRECTED 30 Active Klonopin 0.5 MG Orally Twice a day 1 tablet 12h Active Hydrocortisone-Acetic Acid 1-2 % Otic Three times a day 5 drops into both ears 8h Jul, 7 days Active Celexa 10 mg take 1 tablet (10 mg) by oral route once daily Feb, Active ZyrTEC 10 mg oral Once a day take 1 tablet (10 mg) by oral route once daily 24h Active Albuterol Sulfate 0.63 mg/3 mL 3 mL by Inhalation route every 4 hours PRN cough or wheeze Jan, Active ProAir HFA 90 mcg/actuation inhale 2 puffs by Inhalation route every 4-6 hours as needed PRN shortness of breath/cough Feb, Active Flonase 50 mcg/actuation Nasally Once a day 1 sprays by Nasal route 2 times per day in each nostril 24h Active Pamelor 25 mg TAKE ONE CAPSULE BY MOUTH TWICE A DAY. Feb, Active Singulair 10 MG Orally Once a day 1 tablet by Oral route 1 time per day 24h May, Active Albuterol 90 mcg/actuation 2 puffs by Inhalation route every 4-6 hours for 7 days Active Amitriptyline HCl 25 TAKE 1 TABLET BY MOUTH EVERY DAY 30 Active RESULTS No Results PROCEDURES Procedure Date Ordered Related Diagnosis Body Site Office Visit, Est Pt., Level 4 Dec 28, 2015 IMMUNIZATIONS No Known Immunizations
--- OUTSIDE RECORDS SUMMARY | 2016-08-12 04:46 | XMS REPORT ---
Author Author JACK CASTRO [facility] eClinicalWorks Address Unknown Phone Unavailable Care Team Providers Care Net Software Engineer Name Role Phone JACK CASTRO CP Unavailable [...] surveillance of injectable contraceptive Z30.42 Active Assessment Encounter for Depo-Provera contraception Z30.42 Active Problem Fatigue, unspecified type R53.83 Active Assessment Encounter for initial prescription of injectable contraceptive Z30.013 Active Problem Mild persistent asthma without complication J45.30 Active Medications Medication Code System Code Instructions Start Date End Date Status Dosage Klonopin [facility] [address]-86 0.5 MG Orally Twice a day 1 tablet Pantoprazole Sodium [facility] 82290831291 40 TAKE 1 TABLET BY MOUTH EVERY DAY Pamelor [facility] [address]-98 25 mg Mar 10, 2014 TAKE ONE CAPSULE BY MOUTH TWICE A DAY. Celexa [facility] [address]-52 10 mg Mar 10, 2014 take 1 tablet (10 mg) by oral route once daily ZyrTEC [facility] 0 10 mg oral Once a day take 1 tablet (10 mg) by oral route once daily Protonix [facility] [address]-00 40 MG Orally Once a day 1 tablet Lancets Micro Thin 33G [facility] 47[address]13 September 23, 2014 as directed Macrobid [facility] [address]-13 100 MG Orally every 12 hrs 1 capsule with food Amitriptyline HCl [facility] 62279025254 25 MG Orally Once a day 1 tablet Amitriptyline HCl [facility] 81630978184 25 TAKE 1 TABLET BY MOUTH EVERY DAY Wellbutrin XL [facility] [address]-89 300 MG Orally Once a day 1 tablet in the morning Albuterol Sulfate [facility] [address]-09 0.63 mg/3 mL Feb 08, 2014 3 mL by Inhalation route every 4 hours PRN cough or wheeze Courtney Contour Test NDC 0 Test Strips In Vitro Once a day July 05, 2015 as directed Nebulizer Compressor [facility] [address]60 Apr 13, 2015 as directed Albuterol NDC 0 90 mcg/actuation PRN 2 puffs by Inhalation route every 4-6 hours for 7 days Hydrocortisone-Acetic Acid [facility] [address]-99 1-2 % Otic Three times a day August 09, 2015 5 drops into both ears Zofran ODT [facility] [address]-66 4 MG Orally every 8 hrs prn Nov 22, 2015 1 tablet on the tongue and allow to dissolve Flonase NDC 0 50 mcg/actuation Nasally Once a day 1 sprays by Nasal route 2 times per day in each nostril Advair Diskus [facility] [address]-65 250-50 MCG/DOSE Inhalation Twice a day 1 puff Singulair [facility] [address]-06 10 MG Orally Once a day May 28, 2014 1 tablet by Oral route 1 time per day ProAir HFA [facility] [address]-04 90 mcg/actuation Mar 10, 2014 inhale 2 puffs by Inhalation route every 4-6 hours as needed PRN shortness of breath/ cough Procedures Procedure Coding System Code Date DEPO PROVERA (150 MG/ML) CPT-4 J1050 Nov 24, 2015 THER/PROPH/DIAG INJ, SC/IM CPT-4 66055 Nov 24, 2015 URINALYSIS, AUTO, W/O SCOPE CPT-4 47850 Nov 24, 2015 [facility] CPT-4 NOBLL Nov 24, 2015 URINE TEST CPT-4 82327 Nov 24, 2015 Office Visit, Est Pt., Level 4 CPT-4 90760 Nov 24, 2015 Vital Signs Date/Time: Nov 24, 2015 Cardiac Monitoring Heart Rate 82 bpm Weight 243.2 lbs Height 68 in BMI 36.97 Index Blood Pressure Diastolic 78 mmHg Blood Pressure Systolic 116 mmHg Results No Known Results Summary Purpose eClinicalWorks Submission
--- OUTSIDE RECORDS SUMMARY | 2016-08-12 04:46 | XMS REPORT ---
Author Author JACK CASTRO [facility] eClinicalWorks Address Unknown Phone Unavailable Care Team Providers Care Reticle Printer Name Role Phone JACK CASTRO Unavailable Allergies, Adverse Reactions, Alerts Substance Reaction Event Type Penicillin V Potassium Info Not Available Drug Allergy Bandaids burning Non Drug Allergy Problems Problem Type Condition Code Onset Dates Condition Status Assessment Fatigue, unspecified type R53.83 Active Assessment Moderate persistent asthma with acute exacerbation J45.41 Active Assessment Type 2 diabetes mellitus without complication E11.9 Active Assessment Acute suppurative otitis media of both ears without spontaneous rupture of tympanic membranes, recurrence not specified H66.003 Active Problem Type 2 diabetes mellitus without complication E11.9 Active Problem Fatigue, unspecified type R53.83 Active Problem Moderate persistent asthma with acute exacerbation J45.41 Active Problem Asthma 493.90 Active Problem Diabetes mellitus without mention of complication, type II or unspecified type, not stated as uncontrolled 250.00 Active Problem Mild persistent asthma with (acute) exacerbation J45.31 Active Problem Encounter for surveillance of injectable contraceptive Z30.42 Active Medications Medication Code System Code Instructions Start Date End Date Status Dosage Amitriptyline HCl [facility] [address]-32 25 MG Orally Once a day Jan 20, 2015 1 tablet Promethazine HCl [facility] [address]-60 6.25 MG/5ML Orally every 6 hrs prn nausea and cough Jan 20, 2015 10 ml as needed Metformin HCl [facility] [address]-70 500 MG Orally Once a day TAKE ONE TABLET BY MOUTH DAILY WITH A MEAL Pamelor [facility] [address]-63 25 mg Mar 10, 2014 TAKE ONE CAPSULE BY MOUTH TWICE A DAY. Depo-Provera [facility] [address]-74 150 mg/mL July 05, 2014 inject 150 mg by intramuscular route every 3 months Advair Diskus [facility] [address]-40 250-50 MCG/DOSE Inhalation Twice a day Jan 12, 2015 1 puff Singulair [facility] [address]-68 10 MG Orally Once a day May 28, 2014 1 tablet by Oral route 1 time per day Lancets Micro Thin 33G [facility] 90[address]35 September 23, 2014 as directed ZyrTEC [facility] 0 10 mg September 02, 2013 take 1 tablet (10 mg) by oral route once daily Celexa [facility] [address]-42 10 mg Mar 10, 2014 take 1 tablet (10 mg) by oral route once daily ProAir HFA [facility] [address]-13 90 mcg/actuation Mar 10, 2014 inhale 2 puffs by Inhalation route every 4-6 hours as needed PRN shortness of breath/ cough Flonase [facility] [address]-17 50 mcg/actuation Nasally Once a day July 14, 2013 1 sprays by Nasal route 2 times per day in each nostril Zofran ODT [facility] [address]-75 8 mg May 31, 2014 1 tablet by Oral route every 8 hours PRN nausea or vomiting Keflex [facility] [address]-43 500 MG Orally 3 times a day Feb 03, 2015 Feb 13, 2015 1 capsule Test strips [facility] 0 Jan 21, 2015 as directed Wellbutrin SR [facility] [address]-56 150 mg Apr 21, 2013 take 1 tablet (150 mg) by oral route 2 times per day Albuterol [facility] 0 90 mcg/actuation Feb 04, 2014 2 puffs by Inhalation route every 4-6 hours for 7 days Wellbutrin SR [facility] [address]-23 100 MG Orally once per day 1 tablet Albuterol Sulfate [facility] [address]-38 0.63 mg/3 mL Feb 08, 2014 3 mL by Inhalation route every 4 hours PRN cough or wheeze Procedures Procedure Coding System Code Date COMPLETE CBC W/AUTO DIFF WBC CPT-4 47671 Feb 03, 2015 ASSAY THYROID STIM HORMONE CPT-4 24883 Feb 03, 2015 COMPREHEN METABOLIC PANEL CPT-4 54737 Feb 03, 2015 CHEST X-RAY CPT-4 08726 Feb 03, 2015 GLYCATED HEMOGLOBIN TEST CPT-4 08744 Feb 03, 2015 Office Visit, Est Pt., Level 4 CPT-4 66372 Feb 03, 2015 VENIPUNCT, ROUTINE* CPT-4 84372 Feb 03, 2015 Vital Signs Date/Time: Feb 03, 2015 Temperature 98.2 F Weight 244.5 lbs Height 68 in BMI 37.17 Index Blood Pressure Diastolic 76 mmHg Blood Pressure Systolic 118 mmHg Cardiac Monitoring Heart Rate 84 bpm Results Name Result Date Reference Range Unit Abnormality Flag ROUTINE VENIPUNCTURE A1C (IN HOUSE) Summary Purpose eClinicalWorks Submission
--- OUTSIDE RECORDS SUMMARY | 2016-08-12 04:46 | XMS REPORT ---
Author Author JACK CASTRO [facility] eClinicalWorks Address Unknown Phone Unavailable Care Team Providers Care Training Instructor Name Role Phone JACK CASTRO CP Unavailable [...]
--- OUTSIDE RECORDS SUMMARY | 2016-08-12 04:46 | XMS REPORT ---
Author MARTHA Rebolledo [facility] eClinicalWorks Address Unknown Phone Unavailable Care Team Providers Care Physics Technician Name Role Phone MARTHA BERNAL CP Unavailable Allergies, Adverse Reactions, Alerts Substance Reaction Event Type Penicillin V Potassium Info Not Available Drug Allergy Bandaids burning Non Drug Allergy Problems Problem Type Condition Code Onset Dates Condition Status Problem Otalgia of both ears H92.03 Active Assessment Dental examination Z01.20 Active Problem Candidiasis of skin B37.2 Active [...] Instructions Start Date End Date Status Dosage Singulair [facility] [address]-72 10 MG Orally Once a day May 28, 2014 1 tablet by Oral route 1 time per day Flonase NDC 0 50 mcg/actuation Nasally Once a day 1 sprays by Nasal route 2 times per day [place] [address]-81 90 mcg/actuation Mar 10, 2014 inhale 2 puffs by Inhalation route every 4-6 hours as needed PRN shortness of breath/ cough Albuterol Sulfate [facility] [address]-22 0.63 mg/3 mL Feb 08, 2014 3 mL by Inhalation route every 4 hours PRN cough or wheeze Pamelor [facility] [address]-33 25 mg Mar 10, 2014 TAKE ONE CAPSULE BY MOUTH TWICE A DAY. Advair Diskus [facility] [address]-22 250-50 MCG/DOSE Inhalation Twice a day 1 puff Nebulizer Compressor [facility] [address] Apr 13, 2015 as directed Amitriptyline HCl [facility] 76233772009 25 TAKE 1 TABLET BY MOUTH DAILY Courtney Contour Test [facility] 69644780652 0 TEST ONCE DAILY Celexa [facility] [address]-09 10 mg Mar 10, 2014 take 1 tablet (10 mg) by oral route once daily Klonopin [facility] [address]-37 0.5 MG Orally Twice a day 1 tablet Courtney Contour Test ND 0 Test Strips In Vitro Once a day July 05, 2015 as directed ZyrTEC NDC 0 10 mg oral Once a day take 1 tablet (10 mg) by oral route once daily Zofran ODT [facility] [address]-59 4 MG Orally every 8 hrs prn Nov 22, 2015 1 tablet on the tongue and allow to dissolve Toprol XL [facility] [address]-58 25 MG Orally Once a day 1 tablet Lancets Micro Thin 33G [facility] [address] September 23, 2014 as directed Albuterol NDC 0 90 mcg/actuation PRN 2 puffs by Inhalation route every 4-6 hours for 7 days Wellbutrin XL [facility] [address]-44 300 MG Orally Once a day 1 tablet in the morning Procedures Procedure Coding System Code Date Dental no charge CPT-4 D0099 Feb 02, 2016 Vital Signs Date/Time: Feb 02, 2016 Blood Pressure Diastolic 91 mmHg Blood Pressure Systolic 110 mmHg Results No Known Results Summary Purpose eClinicalWorks Submission
--- OUTSIDE RECORDS SUMMARY | 2016-08-12 04:46 | XMS REPORT ---
Author MARTHA Rebolledo [facility] eClinicalWorks Address Unknown Phone Unavailable Care Team Providers Care Photo Specialist Name Role Phone MARTHA BERNAL CP Unavailable [...] Date End Date Status Dosage Zofran ODT [facility] [address]-00 4 MG Orally every 8 hrs prn Nov 22, 2015 1 tablet on the tongue [place] [address]-73 250-50 MCG/DOSE Inhalation Twice a day 1 [place] [address]-42 300 MG Orally Once a day 1 tablet in the morning Albuterol NDC 0 90 mcg/actuation PRN 2 puffs by Inhalation route every 4-6 hours for 7 days Albuterol Sulfate [facility] [address]-70 0.63 mg/3 mL Feb 08, 2014 3 mL by Inhalation route every 4 hours PRN cough or wheeze ProAir HFA [facility] [address]-60 90 mcg/actuation Mar 10, 2014 inhale 2 puffs by Inhalation route every 4-6 hours as needed PRN shortness of breath/ cough Courtney Contour Test NDC 0 Test Strips In Vitro Once a day July 05, 2015 as directed Celexa [facility] [address]-96 10 mg Mar 10, 2014 take 1 tablet (10 mg) by oral route once daily Klonopin [facility] [address]-83 0.5 MG Orally Twice a day 1 tablet Flonase NDC 0 50 mcg/actuation Nasally Once a day 1 sprays by Nasal route 2 times per day in each nostril ZyrTEC NDC 0 10 mg oral Once a day take 1 tablet (10 mg) by oral route once daily Amitriptyline HCl [facility] 55757191483 25 TAKE 1 TABLET BY MOUTH DAILY Courtney Contour Test [facility] 10100568723 0 TEST ONCE DAILY Lancets Micro Thin 33G [facility] [address] September 23, 2014 as directed Pamelor [facility] [address]-76 25 mg Mar 10, 2014 TAKE ONE CAPSULE BY MOUTH TWICE A DAY. Toprol XL [facility] [address]-34 25 MG Orally Once a day 1 tablet Singulair [facility] [address]-41 10 MG Orally Once a day May 28, 2014 1 tablet by Oral route 1 time per day Nebulizer Compressor [facility] [address]35 Apr 13, 2015 as directed Procedures Procedure Coding System Code Date RSN COMPOS-4/> SURF/W/INCISAL ANG CPT-4 D2335 Jan 31, 2016 Vital Signs Date/Time: Jan 31, 2016 Blood Pressure Diastolic 83 mmHg Blood Pressure Systolic 130 mmHg Height 68 in Results No Known Results Summary Purpose eClinicalWorks Submission
--- OUTSIDE RECORDS SUMMARY | 2016-08-12 04:46 | XMS REPORT ---
Author Author JACK CASTRO [facility] eClinicalWorks Address Unknown Phone Unavailable Care Team Providers Care Aluminum Sheet Cutter Name Role Phone JACK CASTRO Unavailable Allergies, Adverse Reactions, Alerts Substance Reaction Event Type Penicillin V Potassium Info Not Available Drug Allergy Bandaids burning Non Drug Allergy Problems Problem Type Condition Code Onset Dates Condition Status Assessment Tooth infection K04.7 Active Problem Encounter for surveillance of injectable contraceptive Z30.42 Active Assessment Type 2 diabetes mellitus without complication E11.9 Active Assessment Mild persistent asthma without complication J45.30 Active Assessment Palpitation R00.2 Active Problem Palpitation R00.2 Active Problem Mild persistent asthma without complication J45.30 Active Problem Tooth infection K04.7 Active Problem Fatigue, unspecified type R53.83 Active Problem Mild persistent asthma with (acute) exacerbation J45.31 Active Problem Moderate persistent asthma with acute exacerbation J45.41 Active Problem Type 2 diabetes mellitus without complication E11.9 Active Medications Medication Code System Code Instructions Start Date End Date Status Dosage Amitriptyline HCl [facility] 53018078126 25 MG Orally Once a day 1 tablet Singulair [facility] [address]-77 10 MG Orally Once a day May 28, 2014 1 tablet by Oral route 1 time per day ProAir HFA [facility] [address]-01 90 mcg/actuation Mar 10, 2014 inhale 2 puffs by Inhalation route every 4-6 hours as needed PRN shortness of breath/ cough Depo-Provera [facility] [address]-09 150 mg/mL July 05, 2014 inject 150 mg by intramuscular route every 3 months Wellbutrin SR [facility] [address]-62 150 mg Apr 21, 2013 take 1 tablet (150 mg) by oral route 2 times per day Keflex [facility] [address]-56 500 MG Orally 3 times a day Mar 23, 2015 Apr 02, 2015 1 capsule [place] [facility] [address]-15 5-325 MG Orally every 6 hrs Mar 14, 2015 1 tablet as needed Promethazine HCl [facility] [address]-70 6.25 MG/5ML Orally every 6 hrs prn nausea and cough Jan 20, 2015 10 ml as needed Flonase [facility] [address]-64 50 mcg/actuation Nasally Once a day July 14, 2013 1 sprays by Nasal route 2 times per day in each nostril Lancets Micro Thin 33G [facility] [address] September 23, 2014 as directed ZyrTEC NDC 0 10 mg oral Once a day September 02, 2013 take 1 tablet (10 mg ) by oral route once daily Albuterol ND 0 90 mcg/actuation PRN Feb 04, 2014 2 puffs by Inhalation route every 4-6 hours for 7 days Zofran ODT [facility] [address]-57 8 mg May 31, 2014 1 tablet by Oral route every 8 hours PRN nausea or vomiting Metformin HCl [facility] [address]-55 500 MG Orally Once a day TAKE ONE TABLET BY MOUTH DAILY WITH A MEAL Test strips [facility] 0 Jan 21, 2015 as directed Wellbutrin SR [facility] [address]-23 100 MG Orally once per day 1 tablet Advair Diskus [facility] [address]-29 250-50 MCG/DOSE Inhalation Twice a day Jan 12, 2015 1 puff Albuterol Sulfate [facility] [address]-44 0.63 mg/3 mL Feb 08, 2014 3 mL by Inhalation route every 4 hours PRN cough or wheeze Protonix [facility] [address]-18 40 MG Orally Once a day 1 tablet Celexa [facility] [address]-71 10 mg Mar 10, 2014 take 1 tablet (10 mg) by oral route once daily Pamelor [facility] [address]-19 25 mg Mar 10, 2014 TAKE ONE CAPSULE BY MOUTH TWICE A DAY. Procedures Procedure Coding System Code Date ASSAY THYROID STIM HORMONE CPT-4 13301 Mar 23, 2015 COMPLETE CBC W/AUTO DIFF WBC CPT-4 52704 Mar 23, 2015 ELECTROCARDIOGRAM, TRACING CPT-4 15462 Mar 23, 2015 CHEST X-RAY CPT-4 88819 Mar 23, 2015 ASSAY OF MAGNESIUM CPT-4 49820 Mar 23, 2015 COMPREHEN METABOLIC PANEL CPT-4 33767 Mar 23, 2015 VENIPUNCT, ROUTINE* CPT-4 14902 Mar 23, 2015 Office Visit, Est Pt., Level 4 CPT-4 49771 Mar 23, 2015 Vital Signs Date/Time: Mar 23, 2015 Temperature 97.7 F Weight 249.8 lbs Height 68 in BMI 37.98 Index Blood Pressure Diastolic 72 mmHg Blood Pressure Systolic 118 mmHg Cardiac Monitoring Heart Rate 86 bpm Results No Known Results Summary Purpose eClinicalWorks Submission
--- OUTSIDE RECORDS SUMMARY | 2016-08-12 04:47 | XMS REPORT ---
Author Author JACK CASTRO Organization eClinicalWorks Address Unknown Phone Unavailable Care Team Providers Care Tests Superintendent Name Role Phone JACK CASTRO CP Unavailable Allergies No Known Allergies Problems Problem Type Condition Code Onset Dates Condition Status Problem Mild persistent asthma with (acute) exacerbation J45.31 Active Problem Encounter for surveillance of injectable contraceptive Z30.42 Active Problem Tooth infection K04.7 Active Problem Palpitation R00.2 Active Problem Fatigue R53.83 Active Problem Type 2 diabetes mellitus without complication E11.9 Active Problem Fatigue, unspecified type R53.83 Active Problem Mild persistent asthma without complication J45.30 Active Problem Moderate persistent asthma with acute exacerbation J45.41 Active Medications Medication Code System Code Instructions Start Date End Date Status Dosage Courtney Contour Test NDC 0 Test Strips In Vitro Once a day Apr 13, 2015 as directed Results No Known Results Summary Purpose eClinicalWorks Submission
--- OUTSIDE RECORDS SUMMARY | 2016-08-12 04:47 | XMS REPORT ---
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 Problem Palpitations R00.2 Active Problem Acute mucoid otitis media of left ear H65.112 Active Problem Palpitation R00.2 Active Problem Chronic eustachian tube dysfunction, bilateral H69.83 Active Problem Mild persistent asthma without complication J45.30 Active Problem Fatigue, unspecified type R53.83 Active Problem Bronchiolitis J21.9 Active Problem Routine gynecological examination Z01.419 Active [...] Problem Elevated blood pressure I10 Active Problem Otalgia of both ears H92.03 Active Problem Encounter for surveillance of injectable contraceptive Z30.42 Active Problem Asthma J45.909 Active Problem Candidiasis of skin B37.2 Active Medications No Known Medications Results No Known Results Summary Purpose eClinicalWorks Submission
--- OUTSIDE RECORDS SUMMARY | 2016-08-12 04:47 | XMS REPORT ---
Author Author JACK CASTRO Organization eClinicalWorks Address Unknown Phone Unavailable Care Team Providers Care Zipper Ironer Name Role Phone JACK CASTRO CP Unavailable [...] Start Date End Date Status Dosage Protonix [facility] [address]-00 40 MG Orally Once a day 1 tablet Results No Known Results Summary Purpose eClinicalWorks Submission
--- OUTSIDE RECORDS SUMMARY | 2016-08-12 04:47 | XMS REPORT ---
Author Author MARTHA BERNAL [facility] Address Unknown Care Team Providers Care Wood Chopper Name Role Phone MARTHA BERNAL Unavailable PROBLEMS Type Condition ICD9-CM Code MFQ42-HU Code Onset Dates Condition Status SNOMED Code Problem Asthma J45.909 Active 622054199 Problem Chronic eczematoid otitis externa of both ears H60.8X3 Active 26147652 Problem Bruising T14.8 Active 086575586 Problem Routine gynecological examination Z01.419 Active 611215269 Problem History of abnormal cervical Pap smear Z87.898 Active 390640090 Problem Candidiasis of skin B37.2 Active 42889442 Problem Otalgia of both ears H92.03 Active 409691906 Problem 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 688152101 Problem Vaginal yeast infection B37.3 Active 91228821 Problem Fatigue, unspecified type R53.83 Active 02990999 Problem Mild persistent asthma without complication J45.30 Active 998158377 Assessment Dental examination Z01.20 Nov, Active 645004004 Problem Encounter for surveillance of injectable contraceptive Z30.42 Active 40908607 Problem GERD (gastroesophageal reflux disease) K21.9 Active 210464682 Problem Sensation of feeling hot R68.89 Active 443145100 Problem Palpitation R00.2 Active 75683306 Problem Prediabetes R73.09 Active 8934997 Problem Fatigue R53.83 Active 57485918 Problem Elevated blood pressure I10 Active 13086049 ALLERGIES Substance Reaction Event Type Date Status Penicillin V Potassium Unknown Drug Allergy Nov, Active Bandaids burning Non Drug Allergy Nov, Active SOCIAL HISTORY No smoking Hx information available PLAN OF CARE VITAL SIGNS Height 68 in 2015-12-20 Blood pressure systolic 134 mmHg 2015-12-20 Blood pressure diastolic 72 mmHg 2015-12-20 MEDICATIONS Medication Instructions Dosage Frequency Start Date End Date Duration Status Wellbutrin XL 300 MG Orally Once a day 1 tablet in the morning 24h Active ZyrTEC 10 mg oral Once a day take 1 tablet (10 mg) by oral route once daily 24h Active Celexa 10 mg take 1 tablet (10 mg) by oral route once daily Feb, Active Nebulizer Compressor as directed Mar, Active Singulair 10 MG Orally Once a day 1 tablet by Oral route 1 time per day 24h May, Active Lancets Micro Thin 33G as directed Sep, Active Hydrocortisone-Acetic Acid 1-2 % Otic Three times a day 5 drops into both ears 8h Jul, 7 days Active Flonase 50 mcg/actuation Nasally Once a day 1 sprays by Nasal route 2 times per day in each nostril 24h Active Amitriptyline HCl 25 TAKE 1 TABLET BY MOUTH EVERY DAY 30 Active Courtney Contour Test Test Strips In Vitro Once a day as directed 24h Jun, Active Toprol XL 25 MG Orally Once a day 1 tablet 24h Nov, 90 days Active Pamelor 25 mg TAKE ONE CAPSULE BY MOUTH TWICE A DAY. Feb, Active Pantoprazole Sodium 40 TAKE 1 TABLET BY MOUTH EVERY DAY 30 Active Zofran ODT 4 MG Orally every 8 hrs prn 1 tablet on the tongue and allow to dissolve Nov, 03 days Active Albuterol 90 mcg/actuation 2 puffs by Inhalation route every 4-6 hours for 7 days Active Albuterol Sulfate 0.63 mg/3 mL 3 mL by Inhalation route every 4 hours PRN cough or wheeze Jan, Active Klonopin 0.5 MG Orally Twice a day 1 tablet 12h Active ProAir HFA 90 mcg/actuation inhale 2 puffs by Inhalation route every 4-6 hours as needed PRN shortness of breath/cough Feb, Active Macrobid 100 MG Orally every 12 hrs 1 capsule with food 12h 7 day(s) Active Advair Diskus 250-50 MCG/DOSE Inhalation Twice a day 1 puff 12h Active Protonix 40 MG Orally Once a day 1 tablet 24h Active Cephalexin Nov, Dec, Active RESULTS No Results PROCEDURES Procedure Date Ordered Related Diagnosis Body Site RESIN COMPOS - 2 SURFACES ANTERIOR Dec 20, 2015 RESIN COMPOS - 3 SURFACES ANTERIOR Dec 20, 2015 Billing Notes on claim Dec 20, 2015 IMMUNIZATIONS No Known Immunizations
--- OUTSIDE RECORDS SUMMARY | 2016-08-12 04:47 | XMS REPORT ---
Author Author JACK CASTRO [facility] eClinicalWorks Address Unknown Phone Unavailable Care Team Providers Care Food Aide Name Role Phone JACK CASTRO CP Unavailable Allergies, Adverse Reactions, Alerts Substance Reaction Event Type Penicillin V Potassium Info Not Available Drug Allergy Bandaids burning Non Drug Allergy Problems Problem Type Condition ICD-9 Code Onset Dates Condition Status Assessment Cough 786.2 Active Assessment IBS (irritable bowel syndrome) 564.1 Active Assessment Asthma 493.90 Active Assessment Upper respiratory disease 478.9 Active Problem Acute pharyngitis 462 Active Problem Other [...] Asthma, unspecified, with (acute) exacerbation 493.92 Active Assessment Pre-diabetes 790.29 Active Problem Acute bronchitis 466.0 Active Problem Acute mucoid otitis media 381.02 Active Problem Personal history of noncompliance with medical treatment, presenting hazards to health V15.81 Active Problem 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 Active Problem Acute upper respiratory infections of unspecified site 465.9 Active Problem Chronic rhinitis 472.0 Active Problem Dysfunction of Eustachian tube 381.81 Active Medications Medication Code System Code Instructions Start Date End Date Status Dosage Lancets Micro Thin 33G [facility] [address] September 23, 2014 as directed Wellbutrin SR [facility] [address]-22 150 mg Apr 21, 2013 take 1 tablet (150 mg) by oral route 2 times per day Depo-Provera [facility] [address]-87 150 mg/mL July 05, 2014 inject 150 mg by intramuscular route every 3 months PrednisoLONE [facility] [address]-13 10 mg Orally 2 times a day Dec 21, 2014 Dec 26, 2014 as directed ZyrTEC NDC 0 10 mg September 02, 2013 take 1 tablet (10 mg) by oral route once daily pantoprazole [facility] 0 40 mg oral Once a day September 02, 2013 Feb 01, 2015 1 Pamelor [facility] [address]-82 25 mg Mar 10, 2014 TAKE ONE CAPSULE BY MOUTH TWICE A DAY. Singulair [facility] [address]-02 10 MG Orally Once a day May 28, 2014 1 tablet by Oral route 1 time per day Flovent Diskus [facility] [address]-31 100 mcg/actuation Mar 10, 2014 inhale 1 puff by Inhalation route 2 times per day rinse mouth after use Flonase [facility] [address]-34 50 mcg/actuation Nasally Once a day July 14, 2013 1 sprays by Nasal route 2 times per day in each nostril Wellbutrin SR [facility] [address]-39 100 MG Orally once per day 1 tablet Albuterol [facility] 0 90 mcg/actuation Feb 04, 2014 2 puffs by Inhalation route every 4-6 hours for 7 days Metformin HCl [facility] [address]-67 500 MG Orally Once a day TAKE ONE TABLET BY MOUTH DAILY WITH A MEAL ProAir HFA [facility] [address]-09 90 mcg/actuation Mar 10, 2014 inhale 2 puffs by Inhalation route every 4-6 hours as needed PRN shortness of breath/ cough Celexa [facility] [address]-10 10 mg Mar 10, 2014 take 1 tablet (10 mg) by oral route once daily Albuterol Sulfate [facility] [address]-02 0.63 mg/3 mL Feb 08, 2014 3 mL by Inhalation route every 4 hours PRN cough or wheeze Augmentin [facility] [address]-80 875-125 MG Orally every 12 hrs Dec 21, 2014 Dec 31, 2014 1 tablet Procedures Procedure Coding System Code Date CHEST X-RAY CPT-4 13761 Dec 21, 2014 Office Visit, Est Pt., Level 4 CPT-4 20978 Dec 21, 2014 MEASURE BLOOD OXYGEN LEVEL CPT-4 29590 Dec 21, 2014 Vital Signs Date/Time: Dec 21, 2014 Temperature 98.4 F Weight 245.9 lbs Height 68 in Oximetry 99 % Blood Pressure Diastolic 70 mmHg Blood Pressure Systolic 118 mmHg Cardiac Monitoring Heart Rate 88 bpm BMI 37.38 Index Results No Known Results Summary Purpose eClinicalWorks Submission
--- OUTSIDE RECORDS SUMMARY | 2016-08-12 04:47 | XMS REPORT ---
Author Author JACK CASTRO [facility] eClinicalWorks Address Unknown Phone Unavailable Care Team Providers Care Family Service Caseworker Name Role Phone JACK CASTRO Unavailable Allergies, Adverse Reactions, Alerts Substance Reaction Event Type Penicillin V Potassium Info Not Available Drug Allergy Bandaids burning Non Drug Allergy Problems Problem Type Condition Code Onset Dates Condition Status Problem Mild persistent asthma with (acute) exacerbation J45.31 Active Problem Type 2 diabetes mellitus without complication E11.9 Active Problem Fatigue, unspecified type R53.83 Active Problem Asthma with acute exacerbation J45.901 Active Problem Fatigue R53.83 Active Problem Otitis media, right H66.91 Active Problem Mild persistent asthma without complication J45.30 Active Problem Moderate persistent asthma with acute exacerbation J45.41 Active Problem Tooth infection K04.7 Active Problem Palpitation R00.2 Active Assessment Asthma with acute exacerbation J45.901 Active Assessment Otitis media, right H66.91 Active Assessment Encounter for Depo-Provera contraception Z30.42 Active Problem Encounter for surveillance of injectable contraceptive Z30.42 Active Medications Medication Code System Code Instructions Start Date End Date Status Dosage Doxepin HCl [facility] [address]-53 10 MG Orally Once a day 1 capsule at bedtime Wellbutrin XL [facility] [address]-68 300 MG Orally Once a day 1 tablet in the morning ZyrTEC NDC 0 10 mg oral Once a day take 1 tablet (10 mg) by oral route once daily Flonase NDC 0 50 mcg/actuation Nasally Once a day 1 sprays by Nasal route 2 times per day in each nostril Promethazine-Codeine [facility] [address]-16 6.25-10 MG/5ML Orally every 6 hrs- prn Apr 21, 2015 5 ml as needed Singulair [facility] [address]-80 10 MG Orally Once a day May 28, 2014 1 tablet by Oral route 1 time per day Depo-Provera [facility] [address]-05 150 mg/mL July 05, 2014 inject 150 mg by intramuscular route every 3 months PredniSONE [facility] [address]-22 10 MG Orally bid Apr 21, 2015 Apr 28, 2015 1 tablet Test strips ND 0 Jan 21, 2015 as directed Lancets Micro Thin 33G [facility] [address] September 23, 2014 as directed Amitriptyline HCl [facility] 60822593412 25 MG Orally Once a day 1 tablet Protonix [facility] [address]-48 40 MG Orally Once a day 1 tablet Keflex [facility] [address]-37 500 MG Orally three times a day Apr 21, 2015 May 01, 2015 1 capsule Albuterol Sulfate [facility] [address]-56 0.63 mg/3 mL Feb 08, 2014 3 mL by Inhalation route every 4 hours PRN cough or wheeze Courtney Contour Test [facility] 0 Test Strips In Vitro Once a day Apr 13, 2015 as directed ProAir HFA [facility] [address]-55 90 mcg/actuation Mar 10, 2014 inhale 2 puffs by Inhalation route every 4-6 hours as needed PRN shortness of breath/ cough Advair Diskus [facility] [address]-17 250-50 MCG/DOSE Inhalation Twice a day 1 puff Klonopin [facility] [address]-70 0.5 MG Orally Twice a day 1 tablet Albuterol ND 0 90 mcg/actuation PRN 2 puffs by Inhalation route every 4-6 hours for 7 days Nebulizer Compressor [facility] [address] Apr 13, 2015 as directed Procedures Procedure Coding System Code Date DEPO PROVERA (150 MG/ML) CPT-4 J1050 Apr 21, 2015 THER/PROPH/DIAG INJ, SC/IM CPT-4 50739 Apr 21, 2015 URINE TEST CPT-4 45514 Apr 21, 2015 Office Visit, Est Pt., Level 3 CPT-4 34126 Apr 21, 2015 Vital Signs Date/Time: Apr 21, 2015 Temperature 98.0 F Weight 246.3 lbs Height 68 in BMI 37.45 Index Blood Pressure Diastolic 78 mmHg Blood Pressure Systolic 118 mmHg Cardiac Monitoring Heart Rate 80 bpm Results No Known Results Summary Purpose eClinicalWorks Submission
--- OUTSIDE RECORDS SUMMARY | 2016-08-12 04:47 | XMS REPORT ---
Author Author JACK CASTRO Organization eClinicalWorks Address Unknown Phone Unavailable Care Team Providers Care Compensation Business Partner Name Role Phone JACK CASTRO CP Unavailable Allergies No Known Allergies Problems Problem Type Condition ICD-9 Code Onset Dates Condition Status Problem Acute [...]
--- OUTSIDE RECORDS SUMMARY | 2016-08-12 04:47 | XMS REPORT ---
Author Author JACK CASTRO [facility] eClinicalWorks Address Unknown Phone Unavailable Care Team Providers Care Certified Fire Investigator Name Role Phone JACK CASTRO CP Unavailable [...] K04.7 Active Problem Palpitation R00.2 Active Assessment Tooth infection K04.7 Active Assessment Palpitation R00.2 Active Assessment Type 2 diabetes mellitus without complication E11.9 Active Assessment Mild persistent asthma without complication J45.30 Active Problem Encounter for surveillance of injectable contraceptive Z30.42 Active Medications No Known Medications Procedures Procedure Coding System Code Date VENIPUNCT, ROUTINE* CPT-4 87464 May 04, 2015 LAB NOT BILLED BY [facility] CPT-4 NOBLL May 04, 2015 Results Name Result Date Reference Range Unit Abnormality Flag ROUTINE VENIPUNCTURE Summary Purpose eClinicalWorks Submission
== END 2016-07-18 17:30 | disposition home or self-care (01) ==
LOC: EDUNIT# 12:48 → ER 12:51
DX: K11.20 Sialoadenitis, unspecified (principal); L03.031 Cellulitis of right toe
CPT/HCPCS: 36415; 86308; 87205; 87430; 87798; 87804; 99283

== ENCOUNTER 2016-08-27 17:24 | Emergency (ER) | payer SELFPAY ==
[~2016-08-27] VITALS: Ht 172.7 cm; Wt 111.6 kg
[~2016-08-27 17:24] MED LIST changes: -CEFD300C3 PO; -LACT1CAP8 PO; -LEVO500T2 PO; -METR500T21 PO; -ONDA4TAB8 PO
[2016-08-27] MEDS ORDERED: LACTATED RINGERS 1,000 ML IV ONE (18:10)
[2016-08-27] MEDS ORDERED: KETOROLAC 30 MG/ML VIAL IVP STA (18:10)
[2016-08-27] MEDS ORDERED: ONDANSETRON 4 MG/2 ML (SDV) Z0FRAN IVP ONE (18:15)
[2016-08-27 18:17] LABS: BILIRUBIN,URINE NEGATIVE (NEGATIVE); KETONES,URINE NEGATIVE (NEGATIVE); LEUKOCYTE ESTERASE ,URINE 3+ (NEGATIVE); NITRITE,URINE NEGATIVE (NEGATIVE); PH,URINE 7 (5-9); PROTEIN,URINE NEGATIVE (NEGATIVE); UROBILINOGEN,URINE NORMAL (NORMAL)
[2016-08-27 18:23] LABS: BASOPHILS # (AUTO) 0.1 10^3/uL (0.0-0.1); BASOPHILS % (AUTO) 1 % (0-10); EOSINOPHILS # (AUTO) 0.2 10^3/uL (0.0-0.3); EOSINOPHILS % (AUTO) 2 % (0-10); LYMPHOCYTES # (AUTO) 2.6 X 10^3 (1.0-4.0); LYMPHOCYTES % (AUTO) 32 % (12-44); MEAN CORPUSCULAR HEMOGLOBIN 29 PG (25-34); MEAN CORPUSCULAR HGB CONC 35 G/DL (32-36); MEAN CORPUSCULAR VOLUME 82 FL (80-99); MEAN PLATELET VOLUME 10.6 FL (7.4-10.4); MONOCYTES # (AUTO) 0.5 X 10^3 (0.0-1.0); MONOCYTES % (AUTO) 6 % (0-12); NEUTROPHILS # (AUTO) 4.8 X 10^3 (1.8-7.8); NEUTROPHILS % (AUTO) 59 % (42-75); PLATELET COUNT 271 10^3/uL (130-400); RED BLOOD COUNT 4.85 10^6/uL (4.35-5.85); RED CELL DISTRIBUTION WIDTH 12.5 % (10.0-14.5); WHITE BLOOD COUNT 8.1 10^3/uL (4.3-11.0)
[2016-08-27] MEDS ORDERED: METR500T21 PO (18:31)
[2016-08-27] MEDS ORDERED: LEVO500T2 PO (18:31)
[2016-08-27 18:47] LABS: ALANINE AMINOTRANSFERASE 21 U/L (0-55); AMYLASE 43 U/L (25-125); ANION GAP 9 MMOL/L (5-14); ASPARTATE AMINO TRANSFERASE 17 U/L (5-34); BILIRUBIN,TOTAL 0.5 MG/DL (0.1-1.0); BLOOD UREA NITROGEN 7 MG/DL (7-18); BUN/CREATININE RATIO 8; CALCIUM 9.2 MG/DL (8.5-10.1); CARBON DIOXIDE 24 MMOL/L (21-32); CHLORIDE 106 MMOL/L (98-107); CREATININE SERUM 0.87 MG/DL (0.60-1.30); GFR ESTIMATED > 60; GLUCOSE 110 MG/DL (70-105); LIPASE 20 U/L (8-78); POTASSIUM 3.9 MMOL/L (3.6-5.0); SODIUM 139 MMOL/L (135-145)
[2016-08-27] MEDS ORDERED: CEFD300C3 PO ×2 (18:57→18:58)
[2016-08-27] MEDS ORDERED: LACT1CAP8 PO ×2 (18:57→18:58)
[2016-08-27] MEDS ORDERED: ONDA4TAB8 PO ×2 (18:57→18:58)
--- NOTE | 2016-08-27 18:57 | ED GI ---
General Chief Complaint: Abdominal/GI Problems Stated Complaint: LEFT SIDE ABD PAIN Nursing Triage Note: PT CO OF L LOWER ABD PAIN. PT HAS HAD CT DONE EARLIER TODAY ORDERED BY [facility] Sepsis Screen: No Definite Risk Source of Information: Patient History of Present Illness Time Seen By Provider: 17:55 Initial Comments C/O LEFT MID ABDOMEN AND LEFT FLANK PAIN FOR 3-4 WEEKS, WORSE SINCE LAST PM STATES SHE HAS HAD NAUSEA AND VOMITED X 2 SINCE YESTERDAY HAS HAD DIARRHEA FOR 2 WEEKS--STATES TODAY SHE HAS HAD BETWEEN 5 AND 10 STOOLS TODAY--NO BLACK/BLOODY OR TARRY STOOLS NO FEVER NO URINARY SYMPTOMS NO VAGINAL DISCHARGE OR ABNORMAL BLEEDING--LMP IS UNKNOWN, HAS BEEN ON DEPO- PROVERA SHOTS, BUT LAST SHOT WAS 4 MONTHS AGO PT WAS SEEN AT [facility] BY LUKE CASTRO LAST WEEK FOR THIS PROBLEM AND WAS GIVEN RX'S FOR FLAGYL AND LEVAQUIN, AND HAD OUTPATIENT CT SCAN TODAY FOR THIS PROBLEM WHICH WAS ESSENTIALLY NEGATIVE FOR ACUTE PROCESS. DID SHOW NON- OBSTRUCTING LEFT INTRA-RENAL STONES. PT STATES SHE HAS BEEN DX WITH IBS IN THE PAST, AND HAS CHRONIC CONSTIPATION AND NORMALLY TAKES STOOL SOFTENERS AND LAXATIVES DAILY--STATES SHE HAS NOT TAKEN ANY SINCE SHE STARTED HAVING DIARRHEA PCP: [facility] Allergies and Home Medications Allergies Coded Allergies: Penicillins (Unverified Allergy, Unknown, 09/28/11) Home Medications Albuterol Sulfate 1 Puff Puff, 2 PUFF IH Q4H PRN for SHORTNESS OF BREATH, ( Reported) Amitriptyline HCl 25 Mg Tablet, 25 MG PO HS, (Reported) Bisacodyl 5 Mg Tablet, 5 MG PO DAILY, (Reported) Bupropion HCl 300 Mg Tab.er.24h, 300 MG PO DAILY, (Reported) Cefdinir 300 Mg Capsule, 300 MG PO BID, #20 Prescribed by: JODY REAL on 08/27/161857 Cetirizine HCl 10 Mg Capsule, 10 MG PO HS, (Reported) Docusate Sodium 100 Mg Tablet, 100 MG PO BID, (Reported) Fluticasone Propionate 9.9 Ml Bath.susp, 1 SPRAY NS BID, (Reported) Lactobacillus Acidophilus 1 Each Capsule, 2 EACH PO QID, #80 Prescribed by: JODY REAL on 08/27/161857 Levofloxacin 500 Mg Tablet, 500 MG PO DAILY, #10 (Reported) Metronidazole 500 Mg Tablet, 500 MG PO BID, #14 (Reported) Ondansetron 4 Mg Tab.rapdis, 4 MG PO Q4H, #10 Prescribed by: JODY REAL on 08/27/161857 Pantoprazole Sodium 40 Mg Gran, 40 MG PO DAILY, (Reported) Sertraline HCl 100 Mg Tablet, 100 MG PO DAILY, (Reported) Review of Systems Constitutional: no symptoms reported Respiratory: No Symptoms Reported Cardiovascular: No Symptoms Reported Gastrointestinal: See HPI, Abdominal Pain, Diarrhea, Nausea, Poor Appetite, Vomiting Genitourinary: No Symptoms Reported Musculoskeletal: no symptoms reported Skin: no symptoms reported Psychiatric/Neurological: No Symptoms Reported Endocrine: No Symptoms Reported Hematologic/Lymphatic: No Symptoms Reported Past Wegbgeg-Ikbupd-Yvdxgz Hx Patient Social History Alcohol Use: Denies Use Recreational Drug Use: No Smoking Status: Never a Smoker 2nd Hand Smoke Exposure: No Recent Foreign Travel: No Contact w/Someone Who Travel: No Recent Infectious Disease Expo: No Recent Hopitalizations: No Immunizations Up To Date Date of Influenza Vaccine: Feb 05, 2016 Seasonal Allergies Seasonal Allergies: Yes Surgeries HX Surgeries: Yes (RIGHT ROTATOR CUFF REPAIR) Surgeries: Gallbladder, Orthopedic Respiratory Hx Respiratory Disorders: Yes Respiratory Disorders: Asthma Cardiovascular Hx Cardiac Disorders: Yes (tachycardia) Cardiac Disorders: Heart Murmur Neurological Hx Neurological Disorders: No Reproductive System : No Genitourinary Hx Genitourinary Disorders: No Gastrointestinal Hx Gastrointestinal Disorders: Yes Gastrointestinal Disorders: Gastroesophageal Reflux, Chronic Constipation, Irritable Bowel Musculoskeletal Hx Musculoskeletal Disorders: No Endocrine Hx Endocrine Disorders: Yes Endocrine Disorders: Diabetes, Non-Insulin dep HEENT HX ENT Disorders: No Cancer Hx Cancer: No Psychosocial Hx Psychiatric Problems: Yes Behavioral Health Disorders: Anxiety, Depression Integumentary HX Skin/Integumentary Disorder: No Blood Transfusions Hx Blood Disorders: No Family Medical History Significant Family History: No Pertinent Family Hx Physical Exam Vital Signs VS - Last 72 Hours, by Label 08/27/16 08/27/16 17:57 19:27 Temp 99.7 Pulse 84 109 Resp 18 18 B/P (MAP) 136/85 Pulse Ox 99 99 Capillary Refill : Less Than 3 Seconds General Appearance: WD/WN, no apparent distress, other (WALKS UPRIGHT AND MOVES WITHOUT DIFFICULTY) Respiratory: normal breath sounds, no respiratory distress, no accessory muscle use Cardiovascular: regular rate, rhythm, no edema, no JVD, no murmur Gastrointestinal: normal bowel sounds, soft, no organomegaly, no pulsatile mass , No distended, No guarding, No rebound, tenderness (DIFFUSE MID AND LEFT SIDED ABDOMINAL TENDERNESS), No hernia, No mass Extremities: normal inspection, normal capillary refill Back: CVA tenderness (L) Neurologic/Psychiatric: produce manager II-XII nml as tested, no motor/sensory deficits, alert, normal mood/affect, oriented x 3 Skin: normal color, warm/dry, No rash Progress/Results/Core Measures Results/Orders Lab Results Laboratory Tests Test 08/27/16 17:53 08/27/16 18:10 Range/Units Urine Color YELLOW Urine Clarity CLEAR Urine pH 7 5-9 Urine Specific [place] 1.010 L 1.016-1.022 Urine Protein NEGATIVE NEGATIVE Urine Glucose (UA) NEGATIVE NEGATIVE Urine Ketones NEGATIVE NEGATIVE Urine Nitrite NEGATIVE NEGATIVE Urine Bilirubin NEGATIVE NEGATIVE Urine Urobilinogen NORMAL NORMAL MG/DL Urine Leukocyte Esterase 3+ H NEGATIVE Urine RBC (Auto) NEGATIVE NEGATIVE Urine RBC NONE /HPF Urine WBC 5-10 H /HPF Urine Squamous Epithelial Cells 2-5 /HPF Urine Crystals NONE /LPF Urine Bacteria FEW H /HPF Urine Casts NONE /LPF Urine Mucus NEGATIVE /LPF Urine Culture Indicated YES White Blood Count 8.1 4.3-11.0 10^3/uL Red Blood Count 4.85 4.35-5.85 10^6/uL Hemoglobin 14.1 11.5-16.0 G/DL Hematocrit 40 35-52 % Mean Corpuscular Volume 82 80-99 FL Mean Corpuscular Hemoglobin 29 25-34 PG Mean Corpuscular Hemoglobin Concent 35 32-36 G/DL Red Cell Distribution Width 12.5 10.0-14.5 % Platelet Count 271 130-400 10^3/uL Mean Platelet Volume 10.6 H 7.4-10.4 FL Neutrophils (%) (Auto) 59 42-75 % Lymphocytes (%) (Auto) 32 12-44 % Monocytes (%) (Auto) 6 0-12 % Eosinophils (%) (Auto) 2 0-10 % Basophils (%) (Auto) 1 0-10 % Neutrophils # (Auto) 4.8 1.8-7.8 X 10^3 Lymphocytes # (Auto) 2.6 1.0-4.0 X 10^3 Monocytes # (Auto) 0.5 0.0-1.0 X 10^3 Eosinophils # (Auto) 0.2 0.0-0.3 10^3/uL Basophils # (Auto) 0.1 0.0-0.1 10^3/uL Sodium Level 139 135-145 MMOL/L Potassium Level 3.9 3.6-5.0 MMOL/L Chloride Level 106 98-107 MMOL/L Carbon Dioxide Level 24 21-32 MMOL/L Anion Gap 9 5-14 MMOL/L Blood Urea Nitrogen 7 7-18 MG/DL Creatinine 0.87 0.60-1.30 MG/DL Estimat Glomerular Filtration Rate > 60 BUN/Creatinine Ratio 8 Glucose Level 110 H 70-105 MG/DL Calcium Level 9.2 8.5-10.1 MG/DL Total Bilirubin 0.5 0.1-1.0 MG/DL Aspartate Amino Transf (AST/SGOT) 17 5-34 U/L Alanine Aminotransferase (ALT/SGPT) 21 0-55 U/L Alkaline Phosphatase 65 40-136 U/L Total Protein 7.0 6.4-8.2 G/DL Albumin 4.0 3.2-4.5 G/DL Amylase Level 43 25-125 U/L Lipase 20 8-78 U/L Serum Test, Qualitative NEGATIVE NEGATIVE My Orders Orders - JODY REAL DO Saline Lock/Iv-Start (08/27/16 18:10) Amylase (08/27/16 18:10) Cbc With Automated Diff (08/27/16 18:10) Comprehensive Metabolic Panel (08/27/16 18:10) Hcg,Qualitative Serum (08/27/16 18:10) Lipase (08/27/16 18:10) Saline Lock/Iv-Start (08/27/16 18:10) Ondansetron Injection (Zofran Injectio (08/27/16 18:15) Saline Lock/Iv-Start (08/27/16 18:10) Lactated Ringers (Lr 1000 Ml Iv Solution (08/27/16 18:10) Ketorolac Injection (Toradol Injection) (08/27/16 18:10) Ua Culture If Indicated (08/27/16 18:11) Urine Culture (08/27/16 17:53) Ceftriaxone Injection (Rocephin Injectio (08/27/16 19:00) Medications Given in ED Current Medications Medications Dose Ordered Sig/Jered Route Start Time Stop Time Status Last Admin Dose Admin Ceftriaxone Sodium 1000 mg/ Sodium Chloride 50 ml @ 100 mls/hr ONCE ONCE IV 08/27/16 19:00 08/27/16 19:27 DC 08/27/16 19:09 100 MLS/HR Lactated Ringer's 1,000 ml @ 0 mls/hr Q0M ONCE IV 08/27/16 18:10 08/27/16 18:12 DC 08/27/16 18:22 1,000 MLS/HR Ondansetron HCl 4 mg ONCE ONCE IVP 08/27/16 18:15 08/27/16 18:16 DC 08/27/16 18:23 4 MG Vital Signs/I&O Vital Sign - Last 12Hours 08/27/16 08/27/16 17:57 19:27 Temp 99.7 Pulse 84 109 Resp 18 18 B/P (MAP) 136/85 Pulse Ox 99 99 Blood Pressure Mean: 102 Point of Care Testing Urine -Bedside: Negative Progress Note : Progress Note UNEVENTFUL ER STAY Departure Impression Impression: Primary Impression: Urinary tract infection Additional Impression: Gastroenteritis Disposition: 01 HOME, SELF-CARE Condition: Stable Departure-Patient Inst. Referrals: LAUREANO ROMANO DO (PCP) Primary Care Physician JACK CASTRO (Family) Primary Care Physician Patient Instructions: Urinary Tract Infection, Adult (DC), Viral Gastroenteritis, Adult (DC) Add. Discharge Instructions: CLEAR LIQUIDS--WATER, BROTH, JELLO, GATORADE BRATS DIET--BANANAS, RICE, APPLESAUCE, TOAST, SALTINES FINISH YOUR CURRENT ANTIBIOTICS FOLLOW UP WITH [facility] IN 2-3 DAYS FOR FURTHER CARE All discharge instructions reviewed with patient and/or family. Voiced understanding. Scripts Ondansetron (Zofran Odt) 4 Mg Tab.rapdis 4 MG PO Q4H for Nausea/Vomiting, #10 TAB Prov: JODY REAL DO 08/27/16 Lactobacillus Acidophilus (Acidophilus) 1 Each Capsule 2 EACH PO QID, #80 CAP Prov: JODY REAL DO 08/27/16 Cefdinir (Cefdinir) 300 Mg Capsule 300 MG PO BID for FOR INFECTION, #20 CAP Prov: JODY REAL DO 08/27/16 JODY REAL DO August 27, 2016 18:57
[2016-08-27] MEDS ORDERED: cefTRIAXone INJECTION 1,000 MG in NS (IVPB) 50 ML IV ONE (19:00)
[2016-08-27 19:27] VITALS: BP 102/88
== END 2016-08-27 19:27 | disposition home or self-care (01) ==
LOC: EDUNIT# 17:24 → ER 17:26
DX: K52.9 Noninfective gastroenteritis and colitis, unspecified (principal); N39.0 Urinary tract infection, site not specified; N20.0 Calculus of kidney; E11.9 Type 2 diabetes mellitus without complications; Z79.899 Other long term (current) drug therapy
CPT/HCPCS: 36415; 80053; 81000; 82150; 83690; 84703; 85025; 87088; 96374; 96375

== ENCOUNTER → 2016-08-27 | Outpatient (CLI) | payer OTHER ==
[~2016-08-27] MED LIST changes: +CEFD300C3 PO; +LACT1CAP8 PO; +LEVO500T2 PO; +METR500T21 PO; +NAPR500T PO; +ONDA4TAB8 PO; +TRAM50TA2 PO
--- NOTE | 2016-08-27 13:25 | Diagnostic Imaging Report ---
PROCEDURE: CT urinary tract, rule out kidney stone. TECHNIQUE: Multiple contiguous axial images were obtained through the abdomen and pelvis without the use of intravenous contrast. INDICATION: Nausea and vomiting. Diarrhea. Hematuria. COMPARISON: 02/24/2015. FINDINGS: Included views of the lung bases are clear. CT abdomen: Multiple faint nonobstructive left renal calculi are identified. No calculi are seen on the right. No calculi are seen along the course of either ureter. Additionally, there is no hydroureteronephrosis or other evidence of obstruction. No renal mass type lesions are identified on this noncontrast exam. The liver, spleen, pancreas, and adrenal glands have an unremarkable noncontrast CT appearance. Small bowel loops are nondistended. Normal appendix is identified. There is no loculated fluid collection, free fluid, or free air. No abnormal lymph nodes are seen. Bony structures show no acute abnormalities. CT pelvis: Urinary bladder is decompressed and unopacified. No calculi are seen within the urinary bladder. There is no loculated fluid collection, free fluid, or free air within the pelvis. No abnormal lymph nodes are seen. Bony structures show no acute abnormalities. IMPRESSION: 1. Multiple faint nonobstructive left renal calculi. 2. No ureteral calculi, no hydronephrosis, or other evidence of obstruction on either side. Dictated by: Dictated on workstation # [id number]
== END ==
LOC: RAD 12:44
PROVIDERS: ATTEND Nurse Practitioner Family
DX: N30.01 Acute cystitis with hematuria (principal)
CPT/HCPCS: 74176

== ENCOUNTER → 2016-09-20 | Outpatient (CLI) | payer OTHER ==
[~2016-09-20] MED LIST changes: +CEFD300C3 PO; +LACT1CAP8 PO; +LEVO500T2 PO; +METR500T21 PO; +ONDA4TAB8 PO
--- NOTE | 2016-09-20 11:55 | Diagnostic Imaging Report ---
PROCEDURE: MRI left joint lower extremity without contrast. TECHNIQUE: Multiplanar, multisequence MR imaging of the left knee was performed without contrast. COMPARISON: None available. INDICATION: Knee pain and swelling after injury two and a half weeks ago. FINDINGS: MENISCI Medial meniscus: Normal. Lateral meniscus: Normal. LIGAMENTS ACL: Intact. PCL: Intact. MCL: Mild thickening of the MCL with edema on each side suggests low-grade MCL sprain. LCL: The lateral collateral ligamentous complex is intact. EXTENSOR MECHANISM The extensor mechanism is intact. CARTILAGE Medial compartment: Medial compartment articular cartilage is well preserved without focal high-grade chondromalacia. Lateral compartment: The lateral compartment articular cartilage is preserved without high-grade chondromalacia. Patellofemoral compartment: The patellofemoral articular cartilage is well preserved without high-grade chondromalacia. SOFT TISSUES Small knee joint effusion with minimal synovitis. No Marley's cyst. There is a small ganglion arising from the proximal tibiofibular joint which measures approximately 1.4 x 0.6 cm. There is no mass effect on the transversing peroneal nerve. BONE No fracture, bone contusion or osteonecrosis. IMPRESSION: 1. No internal derangement. Specifically, the menisci and articular cartilage is normal. 2. Low-grade sprain of the MCL. Dictated by: Dictated on workstation # [id number]
== END ==
LOC: RAD 09:44
PROVIDERS: ATTEND Nurse Practitioner Family
DX: M25.562 Pain in left knee (principal)
CPT/HCPCS: 73721

== ENCOUNTER → 2016-11-02 | Outpatient (CLI) | payer OTHER ==
--- NOTE | 2016-11-02 17:22 | Diagnostic Imaging Report ---
CLINICAL INDICATION: Patient with pelvic pain. Patient on Depo shots. EXAM: Transabdominal and transvaginal ultrasound of the pelvis. COMPARISON: CT scan of the abdomen and pelvis performed without contrast dated 08/27/2016. FINDINGS: The uterus has normal configuration, size, and echogenicity. The uterus measures 7.7 cm x 3.4 cm x 3.3 cm. The endometrial stripe is roughly 7 mm. The bilateral adnexal regions are obscured by overlying bowel gas, and the ovaries were unable to be evaluated on this exam. There is no evidence of free fluid seen. IMPRESSION: 1: Of note, both ovaries were unable to be evaluated on this exam due to the bilateral adnexal regions being obscured by overlying bowel gas. 2: Otherwise, unremarkable pelvic ultrasound as visualized. Dictated by: Dictated on workstation # [id number]
== END ==
LOC: RAD 14:24
PROVIDERS: ATTEND Nurse Practitioner Family
DX: R10.2 Pelvic and perineal pain (principal)
CPT/HCPCS: 76830; 76856

== ENCOUNTER 2016-11-19 20:09 | Emergency (ER) | payer SELFPAY ==
[~2016-11-19] VITALS: Ht 172.7 cm; Wt 113.4 kg
[2016-11-19] MEDS ORDERED: ASPIRIN 81 MG CHEW (CHILDREN'S ASA) PO ONE (20:45)
[2016-11-19 20:50] LABS: BASOPHILS # (AUTO) 0.1 10^3/uL (0.0-0.1); BASOPHILS % (AUTO) 1 % (0-10); EOSINOPHILS # (AUTO) 0.2 10^3/uL (0.0-0.3); EOSINOPHILS % (AUTO) 2 % (0-10); LYMPHOCYTES # (AUTO) 3.5 X 10^3 (1.0-4.0); LYMPHOCYTES % (AUTO) 34 % (12-44); MEAN CORPUSCULAR HEMOGLOBIN 28 PG (25-34); MEAN CORPUSCULAR HGB CONC 35 G/DL (32-36); MEAN CORPUSCULAR VOLUME 82 FL (80-99); MEAN PLATELET VOLUME 11.3 FL (7.4-10.4); MONOCYTES # (AUTO) 0.7 X 10^3 (0.0-1.0); MONOCYTES % (AUTO) 6 % (0-12); NEUTROPHILS # (AUTO) 5.8 X 10^3 (1.8-7.8); NEUTROPHILS % (AUTO) 57 % (42-75); PLATELET COUNT 266 10^3/uL (130-400); RED BLOOD COUNT 5.02 10^6/uL (4.35-5.85); RED CELL DISTRIBUTION WIDTH 13.1 % (10.0-14.5); WHITE BLOOD COUNT 10.3 10^3/uL (4.3-11.0)
[2016-11-19 21:00] LABS: PROTHROMBIN TIME PATIENT 12.6 SEC (12.2-14.7)
[2016-11-19 21:11] LABS: ALANINE AMINOTRANSFERASE 31 U/L (0-55); ANION GAP 11 MMOL/L (5-14); ASPARTATE AMINO TRANSFERASE 16 U/L (5-34); BILIRUBIN,TOTAL 0.4 MG/DL (0.1-1.0); BLOOD UREA NITROGEN 14 MG/DL (7-18); BUN/CREATININE RATIO 14; CALCIUM 9.7 MG/DL (8.5-10.1); CARBON DIOXIDE 22 MMOL/L (21-32); CHLORIDE 107 MMOL/L (98-107); CREATININE SERUM 0.98 MG/DL (0.60-1.30); GFR ESTIMATED > 60; GLUCOSE 122 MG/DL (70-105); LIPASE 28 U/L (8-78); MAGNESIUM 2.1 MG/DL (1.8-2.4); SODIUM 140 MMOL/L (135-145); TOTAL PROTEIN 7.4 GM/DL (6.4-8.2)
[2016-11-19 21:18] LABS: MYOGLOBIN SERUM 15.9 NG/ML (10.0-92.0)
--- NOTE | 2016-11-19 21:58 | Diagnostic Imaging Report ---
INDICATION: Chest pain PA and lateral chest obtained at 9:43 p.m. Heart and mediastinal silhouette are normal in appearance. The lungs are clear. There is no pneumothorax or pleural fluid. There is no overt bony abnormality in the chest. IMPRESSION: Negative chest, no change from 02/18/15. Dictated by: Dictated on workstation # [id number]
[2016-11-19] MEDS ORDERED: KETOROLAC 30 MG/ML VIAL IVP ONE (22:00)
--- NOTE | 2016-11-19 22:08 | ED Chest Pain ---
General Chief Complaint: Chest Pain Stated Complaint: CHEST PAIN Nursing Triage Note: Pt ambualtory to ED, reports CP since 1100 yesterday. No physical activity attributing to pain per pt. Has had nausea since yesterday. Pain is beneath left breast around to scapula Nursing Sepsis Screen: Possible Sepsis Risk Source: patient Exam Limitations: no limitations History of Present Illness Time seen by provider: 20:28 Initial Comments This 31-year-old young woman presents to the emergency room with multiple complaints including left lower chest pain radiating to the back since yesterday , left arm aching and paresthesia, sharp bouts of pain in the same region, mild nausea, and temperature up to 100 at home. She states her discomfort is worse with deep breathing. She denies any recent travel or medical procedures. She does not smoke. She also complains of a raised lump on anterior surface of her chest that comes and goes. It is currently not present. She denies as she is not sexually active and her last menstrual period started yesterday. She does receive the Depo-Provera shot and she is past due. Allergies and Home Medications Allergies Coded Allergies: Penicillins (Unverified Allergy, Unknown, 09/28/11) Home Medications Albuterol Sulfate 1 Puff Puff, 2 PUFF IH Q4H PRN for SHORTNESS OF BREATH, ( Reported) Amitriptyline HCl 25 Mg Tablet, 25 MG PO HS, (Reported) Bisacodyl 5 Mg Tablet, 5 MG PO DAILY, (Reported) Bupropion HCl 300 Mg Tab.er.24h, 300 MG PO DAILY, (Reported) Cefdinir 300 Mg Capsule, 300 MG PO BID, #20 Prescribed by: JODY REAL on 08/27/161857 Cetirizine HCl 10 Mg Capsule, 10 MG PO HS, (Reported) Docusate Sodium 100 Mg Tablet, 100 MG PO BID, (Reported) Fluticasone Propionate 9.9 Ml [place].susp, 1 SPRAY NS BID, (Reported) Lactobacillus Acidophilus 1 Each Capsule, 2 EACH PO QID, #80 Prescribed by: JODY REAL on 08/27/161857 Levofloxacin 500 Mg Tablet, 500 MG PO DAILY, #10 (Reported) Metronidazole 500 Mg Tablet, 500 MG PO BID, #14 (Reported) Ondansetron 4 Mg Tab.rapdis, 4 MG PO Q4H, #10 Prescribed by: JODY REAL on 08/27/16 1858 Pantoprazole Sodium 40 Mg , 40 MG PO DAILY, (Reported) Sertraline HCl 100 Mg Tablet, 100 MG PO DAILY, (Reported) Review of Systems Constitutional: see HPI EENTM: No Symptoms Reported Respiratory: See HPI Cardiovascular: No Symptoms Reported Gastrointestinal: See HPI Genitourinary: No Symptoms Reported Musculoskeletal: see HPI Skin: no symptoms reported Psychiatric/Neurological: See HPI Endocrine: No Symptoms Reported Hematologic/Lymphatic: No Symptoms Reported Past Yfanfhq-Qclxxs-Dbzutp Hx Patient Social History Alcohol Use: Denies Use Recreational Drug Use: No Smoking Status: Never a Smoker 2nd Hand Smoke Exposure: No Recent Foreign Travel: No Contact w/Someone Who Travel: No Recent Infectious Disease Expo: No Recent Hopitalizations: No Immunizations Up To Date Date of Influenza Vaccine: Feb 05, 2016 Seasonal Allergies Seasonal Allergies: Yes Surgeries HX Surgeries: Yes (RIGHT ROTATOR CUFF REPAIR) Surgeries: Gallbladder, Orthopedic Respiratory Hx Respiratory Disorders: Yes Respiratory Disorders: Asthma Cardiovascular Hx Cardiac Disorders: Yes (tachycardia) Cardiac Disorders: Heart Murmur Neurological Hx Neurological Disorders: No Genitourinary Hx Genitourinary Disorders: No Gastrointestinal Hx Gastrointestinal Disorders: Yes Gastrointestinal Disorders: Gastroesophageal Reflux, Chronic Constipation, Irritable Bowel Musculoskeletal Hx Musculoskeletal Disorders: No Endocrine Hx Endocrine Disorders: Yes Endocrine Disorders: Diabetes, Non-Insulin dep HEENT HX ENT Disorders: No Cancer Hx Cancer: No Psychosocial Hx Psychiatric Problems: Yes Behavioral Health Disorders: Anxiety, Depression Integumentary HX Skin/Integumentary Disorder: No Blood Transfusions Hx Blood Disorders: No Family Medical History Significant Family History: No Pertinent Family Hx Physical Exam Vital Signs Vital Sign - Last 12Hours Capillary Refill : Less Than 3 Seconds General Appearance: No Apparent Distress, WD/WN, Obese HEENT: PERRL/EOMI, Normal ENT Inspection Neck: Normal Inspection, Non Tender, Supple Respiratory: Lungs Clear, Normal Breath Sounds, No Accessory Muscle Use, No Respiratory Distress, Other (anterior left lower chest wall tender to palpation) Cardiovascular: Regular Rate, Rhythm, No Edema, No Gallop, No Murmur Gastrointestinal: Normal Bowel Sounds, Soft, Tenderness (wild tenderness to palpation in the left upper quadrant) Extremity: Normal Inspection, Non Tender, No Calf Tenderness, No Pedal Edema, Other (negative Azeb) Neurologic/Psychiatric: Alert, Oriented x3, No Motor/Sensory Deficits, lead military analyst II- XII Norm as Tested, Other (chest) Skin: Normal Color, Warm/Dry, No Rash Other comments back/musculoskeletal: There is tenderness in the paraspinous muscles beneath the left scapula Progress/Results/Core Measures Results/Orders Lab Results Laboratory Tests Test 11/19/16 20:42 Range/Units White Blood Count 10.3 4.3-11.0 10^3/uL Red Blood Count 5.02 4.35-5.85 10^6/uL Hemoglobin 14.2 11.5-16.0 G/DL Hematocrit 41 35-52 % Mean Corpuscular Volume 82 80-99 FL Mean Corpuscular Hemoglobin 28 25-34 PG Mean Corpuscular Hemoglobin Concent 35 32-36 G/DL Red Cell Distribution Width 13.1 10.0-14.5 % Platelet Count 266 130-400 10^3/uL Mean Platelet Volume 11.3 H 7.4-10.4 FL Neutrophils (%) (Auto) 57 42-75 % Lymphocytes (%) (Auto) 34 12-44 % Monocytes (%) (Auto) 6 0-12 % Eosinophils (%) (Auto) 2 0-10 % Basophils (%) (Auto) 1 0-10 % Neutrophils # (Auto) 5.8 1.8-7.8 X 10^3 Lymphocytes # (Auto) 3.5 1.0-4.0 X 10^3 Monocytes # (Auto) 0.7 0.0-1.0 X 10^3 Eosinophils # (Auto) 0.2 0.0-0.3 10^3/uL Basophils # (Auto) 0.1 0.0-0.1 10^3/uL Prothrombin Time 12.6 12.2-14.7 SEC INR Comment 1.0 0.8-1.4 Activated Partial Thromboplast Time 23 L 24-35 SEC D-Dimer < 0.27 0.00-0.49 UG/ML Sodium Level 140 135-145 MMOL/L Potassium Level 4.0 3.6-5.0 MMOL/L Chloride Level 107 98-107 MMOL/L Carbon Dioxide Level 22 21-32 MMOL/L Anion Gap 11 5-14 MMOL/L Blood Urea Nitrogen 14 7-18 MG/DL Creatinine 0.98 0.60-1.30 MG/DL Estimat Glomerular Filtration Rate > 60 BUN/Creatinine Ratio 14 Glucose Level 122 H 70-105 MG/DL Calcium Level 9.7 8.5-10.1 MG/DL Magnesium Level 2.1 1.8-2.4 MG/DL Total Bilirubin 0.4 0.1-1.0 MG/DL Aspartate Amino Transf (AST/SGOT) 16 5-34 U/L Alanine Aminotransferase (ALT/SGPT) 31 0-55 U/L Alkaline Phosphatase 83 40-136 U/L Myoglobin 15.9 10.0-92.0 NG/ML Troponin I < 0.30 <0.30 NG/ML C-Reactive Protein High Sensitivity 1.12 H 0.00-0.50 MG/DL Total Protein 7.4 6.4-8.2 GM/DL Albumin 4.0 3.2-4.5 GM/DL Lipase 28 8-78 U/L Serum Test, Qualitative NEGATIVE NEGATIVE My Orders Orders - MALLORIE WALLACE MD Cbc With Automated Diff (11/19/16 20:41) Magnesium (11/19/16 20:41) Ekg Tracing (11/19/16 20:41) Cardiac Profile 1 (11/19/16 20:41) Comprehensive Metabolic Panel (11/19/16 20:41) Myoglobin Serum (11/19/16 20:41) Protime With Inr (11/19/16 20:41) Partial Thromboplastin Time (11/19/16 20:41) O2 (11/19/16 20:41) Monitor-Rhythm Ecg Trace Only (11/19/16 20:41) Aspirin Chewable Tablet (Baby Aspirin Ch (11/19/16 20:45) Saline Lock/Iv-Start (11/19/16 20:41) Lipase (11/19/16 20:41) Fibrin Degradation Products (11/19/16 20:41) Hs C Reactive Protein (11/19/16 20:41) Hcg,Qualitative Serum (11/19/16 20:41) Chest Pa/Lat (2 View) (11/19/16 20:41) Ketorolac Injection (Toradol Injection) (11/19/16 22:00) Ondansetron Injection (Zofran Injectio (11/19/16 22:15) Lidocaine 2% Viscous 15 Ml (Xylocaine Vi (11/19/16 22:15) Antacid Suspension (Mylanta Suspension (11/19/16 22:15) Medications Given in ED Vital Signs/I&O Vital Sign - Last 12Hours 11/19/16 11/19/16 11/19/16 11/19/16 20:14 20:14 20:54 21:53 Temp 98.1 98.1 98.1 Pulse 110 Resp 26 B/P (MAP) 123/79 Pulse Ox 98 O2 Delivery Room Air Room Air 11/19/16 22:56 Temp 98.1 Pulse 94 Resp 16 Pulse Ox 97 O2 Delivery Room Air Blood Pressure Mean: 94 Progress Note : Progress Note Workup was essentially unremarkable. There is no evidence of pneumonia on chest x-ray. D-dimer rules out pulmonary embolus as an explanation for her chest pain with inspiration. Toradol was given for the musculoskeletal pain. A GI cocktail helped the abdominal pain and tenderness. Patient was advised to observe some dietary restrictions for acid reflux and gastritis. She was advised to add Pepcid to her medical regimen. The remainder of her workup can be pursued as an outpatient. ECG Initial ECG Impression Date: Nov 19, 2016 Initial ECG Impression Time: 20:27 Initial ECG Rate: 94 Initial ECG Rhythm: Normal Sinus Initial ECG Intervals: Normal Initial ECG Impression: Normal Comment Normal sinus rhythm with no ST elevation or depression. No abnormal intervals or axis deviation. Diagnostic Imaging Diagonstic Imaging: Xray Plain Films/CT/US/NM/MRI: chest Comments Chest x-ray viewed by me and report reviewed. See report below: NAME: JAYCOB WEBSTER [facility] REC#: [id number] PT STATUS: REG ER : 1985 PHYSICIAN: MALLORIE WALLACE MD ADMIT DATE: 11/19/16/ER Signed Date of Exam: 11/19/16 CHEST PA/LAT (2 VIEW) INDICATION: Chest pain PA and lateral chest obtained at 9:43 p.m. Heart and mediastinal silhouette are normal in appearance. The lungs are clear. There is no pneumothorax or pleural fluid. There is no overt bony abnormality in the chest. IMPRESSION: Negative chest, no change from 02/18/15. Dictated by: Dictated on workstation # [id number] Dict: 11/19/162154 Trans: 11/19/162158 Interpreted by: MARTHA ALCOCER MD Electronically signed by: MARTHA ALCOCER MD 11/19/162158 Departure Impression Impression: Primary Impression: Chest wall pain Additional Impressions: Left upper quadrant pain Upper back pain on left side Arm paresthesia, left Disposition: 01 HOME, SELF-CARE Condition: Improved Departure-Patient Inst. Decision time for Depature: 22:00 Referrals: [facility] (PCP) Primary Care Physician JACK CASTRO (Family) Primary Care Physician Patient Instructions: Chest Pain That Is Not Caused by the Heart (DC) Add. Discharge Instructions: Continue taking Protonix as prescribed. You may add Pepcid (or generic famotidine) 20 mg twice daily for added antacid therapy. Avoid the following: Eating large meals, eating close to bedtime, carbonation, caffeine, citrus fruits and juices, chocolate, alcohol, tobacco, tomato products , spicy foods, mints, NSAID medications such as ibuprofen or naproxen, fatty or greasy foods, or anything else you know irritates your stomach. Return to care if symptoms worsen. Follow-up with your primary care provider in the next 1-2 weeks. If constipation is a concern, add milk of magnesia or MiraLAX (polyethylene glycol) to your stool softener. The numbness in your left arm and pain in your back may be related to nerve impingement from the lower neck or upper back. Please discuss with your primary care provider. All discharge instructions reviewed with patient and/or family. Voiced understanding. Copy Copies To 1: GAETANO RODRIGUEZ MD, JOSHUA T MD Nov 19, 2016 22:08
[2016-11-19] MEDS ORDERED: ONDANSETRON 4 MG/2 ML (SDV) Z0FRAN IVP ONE (22:15)
[2016-11-19] MEDS ORDERED: LIDOCAINE 2% VISCOUS 15 ML UDC PO ONE (22:15)
[2016-11-19] MEDS ORDERED: ANTACID SUSP 30 ML UDC (MYLANTA) PO ONE (22:15)
[2016-11-19 22:56] VITALS: BP 104/81
== END 2016-11-19 22:56 | disposition home or self-care (01) ==
LOC: EDUNIT# 20:09 → ER 20:10
DX: R07.89 Other chest pain (principal); R10.12 Left upper quadrant pain; M54.6 Pain in thoracic spine; R20.2 Paresthesia of skin; J45.909 Unspecified asthma, uncomplicated; K21.9 Gastro-esophageal reflux disease without esophagitis; K59.09 Other constipation; E11.9 Type 2 diabetes mellitus without complications; F41.9 Anxiety disorder, unspecified; F32.9 Major depressive disorder, single episode, unspecified; Z87.19 Personal history of other diseases of the digestive system
CPT/HCPCS: 36415; 71020; 80053; 83690; 83735; 83874; 84484; 84703; 85025; 85379; 85610; 85730; 86141; 93005; 93041; 96374; 96375

== ENCOUNTER → 2017-03-20 | Outpatient (CLI) | payer SELFPAY | LOC: CARD 13:41 | PROVIDERS: ATTEND Physician Assistant | DX: R07.89 Other chest pain (principal); I34.0 Nonrheumatic mitral (valve) insufficiency; R00.2 Palpitations; E66.8 Other obesity | CPT/HCPCS: 93017 ==